=== PATIENT | male | born 1965 | race Caucasian/White ===

== ENCOUNTER 2020-02-23 08:32 | Outpatient (REF) | payer MEDICARE, MEDICAID, SELFPAY ==
[2020-02-23 11:24] LABS: Estimated Average Glucose 243 mg/dL; Hemoglobin A1c % 10.1 %
[2020-02-23 11:52] LABS: Alanine Aminotransferase 50 U/L (0-40); Albumin Level 4.5 g/dL (3.5-5.0); Alkaline Phosphatase 102 U/L (39-117); Anion Gap 16 (12-20); Aspartate Amino Transferase 25 U/L (5-37); Bilirubin Total 0.6 mg/dL (0.0-1.0); Blood Urea Nitrogen 17 mg/dL (9-16); Calcium 9.4 mg/dL (8.4-10.2); Carbon Dioxide 26 mmol/L (22-29); Chloride 103 mmol/L (96-108); Cholesterol 265 mg/dL; Estimated Glomerular Filt Rate > 60; Glucose Fasting 231 mg/dL (60-99); HDL Cholesterol 34 mg/dL; LDL Cholesterol Calculated 172 mg/dl; Potassium 4.6 mmol/l (3.3-5.1); Sodium 140 mmol/L (135-145); Total Protein 7.9 g/dL (6.5-8.0); Triglycerides 295 mg/dL
[2020-02-23 12:01] LABS: Ferritin 133 ng/mL (20-250)
[2020-02-23 12:18] LABS: Prostate Specific Antigen Scr 3.46 ng/mL (<0.05-4.0)
[2020-02-23 12:24] LABS: Vitamin B12 799 pg/mL (200-900)
[2020-02-24 22:12] LABS: Lyme Abs Screen <0.90 index
== END 2020-02-23 08:33 | disposition home or self-care (01) ==
LOC: HO.HMGCLDS 08:32
PROVIDERS: Absent Provider Physician Assistant Medical; PCP Nurse Practitioner Family; Visit Provider Nurse Practitioner Family
DX: G25.81 Restless legs syndrome (principal); T88.7XXA Unspecified adverse effect of drug or medicament, initial encounter; G62.9 Polyneuropathy, unspecified; E11.9 Type 2 diabetes mellitus without complications; Z79.899 Other long term (current) drug therapy; R74.8 Abnormal levels of other serum enzymes
CPT/HCPCS: 80053; 80061; 82607; 82728; 83036; 84153; 86618

== ENCOUNTER 2020-03-24 10:32 | Outpatient (REF) | payer MEDICARE, MEDICAID, SELFPAY ==
--- NOTE | 2020-03-24 10:38 | US_ITS ---
EXAMINATION: US ABDOMEN COMPLETE CLINICAL INFORMATION: Abnormal levels of other serum enzymes. COMPARISON: CT abdomen and pelvis with contrast dated 01/18/2010. TECHNIQUE: Real-time imaging of the abdominal viscera. Technically difficult study secondary to bowel gas. FINDINGS: PANCREAS: Normal ABDOMINAL AORTA: The proximal, mid, and distal segments are normal in caliber. INFERIOR VENA CAVA: The IVC is limited in evaluation. LIVER: The right hepatic lobe is enlarged measuring 20.2 cm in length. The liver contour is normal. No focal hepatic lesion. There is mild increased hepatic echogenicity. There is no intrahepatic biliary duct dilatation seen. GALLBLADDER: Normal. The gallbladder is physiologically distended without evidence of stones, sludge, polyps, wall thickening or pericholecystic fluid. COMMON BILE DUCT: Normal in caliber measuring 0.43 cm in diameter. RIGHT KIDNEY: Normal. No hydronephrosis. No renal calculi or focal parenchymal lesions. The kidney measures 11.0 cm in maximum dimension. LEFT KIDNEY: Normal. No hydronephrosis. No renal calculi or focal parenchymal lesions. The kidney measures 12.0 cm in maximum dimension. SPLEEN: Normal. The spleen measures 10.4 cm in maximum dimension. FREE FLUID: None US/US abdomen complete IMPRESSION: Limited exam due to gas. Mild hepatic steatosis with hepatic enlargement. Mild hepatomegaly with hepatic steatosis.
== END 2020-03-24 10:33 | disposition home or self-care (01) ==
LOC: HO.HMGCX 10:32
PROVIDERS: PCP Nurse Practitioner Family; Visit Provider Nurse Practitioner Family
DX: R74.8 Abnormal levels of other serum enzymes (principal)
CPT/HCPCS: 76700

== ENCOUNTER 2020-05-25 10:24 | Outpatient (REF) | payer MEDICARE, MEDICAID, SELFPAY ==
--- NOTE | ~2020-05-25 | XR_ITS ---
EXAMINATION: XR HIP, RIGHT CLINICAL INFORMATION: Pain COMPARISON: None TECHNIQUE: Two views of the right hip. FINDINGS: Bones and soft tissues are normal. No fracture. Alignment is anatomic. Hip joint space is maintained. XR/XR hip RT min 2V IMPRESSION: Normal right hip.
[2020-05-25 11:23] LABS: MANUAL DIFF FLAG NO
[2020-05-25 11:31] LABS: Basophils Absolute Auto 0.1 X10*3/uL (0.0-0.2); Basophils Percent Auto 0.9 % (0-2); Hematocrit 47.4 % (42-52); Hemoglobin 15.7 g/dl (14.0-18.0); Imm Gran Abs Auto 0.07 X10*3/uL (0.00-0.03); Imm Gran Pct Auto 0.6 % (0.0-0.4); Lymphocytes Absolute Auto 2.4 X10*3/uL (1.2-4.9); Lymphocytes Percent Auto 21.8 % (20-40); Mean Corpuscular HGB Conc 33.1 g/dl (31.0-36.0); Mean Corpuscular Hemoglobin 28.6 pg (27.0-33.0); Mean Corpuscular Volume 86.3 fL (80-98); Mean Platelet Volume 12.7 fL (9.4-12.4); Monocytes Absolute Auto 1.2 X10*3/uL (0.1-1.2); Monocytes Percent Auto 11.3 % (2-11); Neutrophils Absolute Auto 7.2 X10*3/uL (2.0-8.3); Neutrophils Percent Auto 65.4 % (45-73); Platelet Count 181 X10*3/uL (160-400); Red Blood Count 5.49 X10*6/uL (4.60-5.80); Red Cell Distribution Width 13.1 % (11.0-16.0)
[2020-05-25 11:41] LABS: Estimated Average Glucose 243 mg/dL; Hemoglobin A1c % 10.1 %
[2020-05-25 11:56] LABS: Alanine Aminotransferase 33 U/L (0-40); Albumin Level 4.5 g/dL (3.5-5.0); Alkaline Phosphatase 108 U/L (39-117); Anion Gap 15 (12-20); Aspartate Amino Transferase 18 U/L (5-37); Bilirubin Total 0.9 mg/dL (0.0-1.0); Blood Urea Nitrogen 18 mg/dL (9-16); Calcium 9.1 mg/dL (8.4-10.2); Carbon Dioxide 23 mmol/L (22-29); Chloride 103 mmol/L (96-108); Cholesterol 175 mg/dL; Estimated Glomerular Filt Rate > 60; Glucose Fasting 217 mg/dL (60-99); HDL Cholesterol 30 mg/dL; LDL Cholesterol Calculated 104 mg/dl; Potassium 3.8 mmol/L (3.3-5.1); Sodium 137 mmol/L (135-145); Total Protein 7.6 g/dL (6.5-8.0); Triglycerides 206 mg/dL
[2020-05-25 12:25] LABS: HBS Num1 160.52 mIU/mL (0-7.99); HBc Num1 0.04 S/CO (0.00-0.79); Hepatitis B Core Antibody Nonreactive (Nonreactive); ~HepC Num1 0.07 S/CO (0.00-0.79); ~Hepatitis B Surface Antibody REACTIVE (Nonreactive); ~Hepatitis C Antibody Nonreactive (Nonreactive)
[2020-05-25 12:57] LABS: HBsAGNum1 0.19 S/CO (0.00-0.99); Hepatitis B Surface Antigen Negative (Negative); ~Hepatitis A Antibody IgM Nonreactive (Nonreactive)
== END 2020-05-25 10:25 | disposition home or self-care (01) ==
LOC: HO.HMGCLDS 10:24
PROVIDERS: Absent Provider Dermatology; PCP Nurse Practitioner Family; Visit Provider Nurse Practitioner Family
DX: M25.551 Pain in right hip (principal); E11.9 Type 2 diabetes mellitus without complications; R74.8 Abnormal levels of other serum enzymes; Z79.899 Other long term (current) drug therapy
CPT/HCPCS: 36415; 73502; 80053; 80061; 83036; 85025; 86704; 86706; 86709; 86803; 87340

== ENCOUNTER 2020-09-05 03:29 | Emergency (ER) | payer MEDICARE, MEDICAID, SELFPAY ==
--- NOTE | ~2020-09-05 | XR_ITS ---
EXAMINATION: XR CHEST CLINICAL INFORMATION: Chest pain COMPARISON: 11/06/2016 TECHNIQUE: Frontal view of the chest was obtained. FINDINGS: Lung volumes are symmetric. No focal consolidation is seen. No evidence of pneumothorax, pleural effusion, or pulmonary edema. The cardiomediastinal contour is unremarkable. Fusion hardware is noted at the cervicothoracic junction. XR/XR chest 1V IMPRESSION: No acute cardiopulmonary findings.
[2020-09-05 03:36] VITALS: BP 170/100; PULSE 78; RESP 15; TEMP 36.7; O2SAT 95; BMI 26.8
--- NOTE | 2020-09-05 03:40 | ED.CHESTPAIN ---
HPI - Chest Pain General Chief Complaint: Chest Pain Stated Complaint: Chest Pain/Elbow Pain Time Seen by Provider: 09/05/20 03:39 Source: patient Mode of arrival: ambulatory History of Present Illness HPI narrative: This is a 55-year-old male who presents with chest pressure as well as pain to the left arm and into the neck is been ongoing for approximately 14 hours with associated fatigue and overall ?not feeling well?. Patient states that he took couple of ibuprofen this afternoon and also tried Tums, but ?the pain just would not go away?. Patient does have a history of Crohn's and denies any drug use other than marijuana. He denies any other cardiac history and does not take blood thinners. Related Data Home Medications Medication Instructions Recorded Confirmed quetiapine 25 mg tablet 25 mg PO DAILY 02/23/20 05/24/20 sertraline 100 mg tablet 100 mg PO DAILY 02/23/20 05/24/20 valacyclovir 1 gram tablet 1,000 mg PO BID 02/23/20 05/24/20 dulaglutide 0.75 mg/0.5 mL 0.75 mg SUBCUT QWEEK 05/25/20 subcutaneous pen injector Previous Rx's Medication Instructions Recorded metformin 1,000 mg tablet 1,000 mg PO BID 90 Days #180 tab 05/24/20 atorvastatin 40 mg tablet 40 mg PO BEDTIME #90 cap 08/23/20 gabapentin 100 mg capsule 100 mg PO BID 30 Days #60 cap 08/30/20 Allergies Allergy/AdvReac Type Severity Reaction Status Date / Time amoxicillin [Amoxicillin] Allergy Mild RASH, Verified 05/24/20 07:47 hives, hives Review of Systems Review of Systems: Pertinent positives and negatives as stated in HPI 10 point review of systems is otherwise negative. [facility] Past Medical History Source: nursing notes reviewed Medical History Anxiety Arthralgia Crohn's disease Depression Diabetes Hearing loss Mastoiditis Neuropathy Right hip pain Skin cancer Subdural hematoma Surgical History History of colonoscopy Family History Family History Father Cancer Mental illness in member of household Mother Cancer Sister No problems noted. Social History Social History Advance Directives: No Advance Directives Information Provided: No Physical Exam Vital Signs: Vital Signs: Last Vital Signs Temp 98.1 F 09/05/20 03:36 Pulse 78 09/05/20 03:36 Resp 15 09/05/20 03:36 BP 170/100 H 09/05/20 03:36 Pulse Ox 95 09/05/20 03:36 Body Mass Index 26.8 VITAL SIGNS: Reviewed. GENERAL: Well developed, well nourished, in no acute distress. HEAD: Normocephalic/atraumatic EYES: PERRLA, EOMI OROPHARYNX: no oral lesions noted, posterior pharynx clear LUNGS: Normal breath sounds. No adventitious sounds or accessory muscle use. SpO2<95> CARDIOVASCULAR: Regular rate and rhythm without noted murmurs, no JVD or lower extremity edema, symmetrical pulses noted at bilateral upper extremity/femoral/bilateral lower extremity. ABDOMEN: Soft, non-tender, non-distended with bowel sounds no palpable masses. SKIN: Inspection of the skin reveals no rashes but mild diaphoresis NEURO: Alert and oriented x4 Course Course Course Narrative: This is a 55-year-old male with history and clinical presentation consistent with review of EKG of STEMI. Code STEMI was activated and discussion with the on-call fertilizer loader, Dr. Borja, who agrees with assessment of STEMI and patient was provided with aspirin, Brilinta, heparin and ALS was called and patient was transported to [facility]. Review of chest x-ray negative for evidence of any widened mediastinum as interpreted by me. Patient was transported in stable condition with IV fluids running. Of note: On review of patient's chart it is documented that he has a prior history of subdural hematoma approximately 2 years ago that was considered to be ?dried up and resolving? and was found on MRI after evaluation of patient's persistent headaches. MDM - Chest Pain Lab Data Result diagrams: 09/05/20 03:45 09/05/20 03:45 Discharge Plan Discharge Clinical Impression: ST elevation (STEMI) myocardial infarction Patient Disposition: Xfer [facility] Hospital Transfer Details: STEMI, PCI Prescriptions: No Action Trulicity 0.75 mg/0.5 mL pen injector 0.75 mg subcut QWEEK RF: 0 atorvastatin 40 mg tablet 40 mg PO BEDTIME Qty: 90 RF: 0 gabapentin 100 mg capsule 100 mg PO BID 30 Days Qty: 60 RF: 1 sertraline 100 mg tablet 100 mg PO DAILY RF: 0 valacyclovir 1 gram tablet 1,000 mg PO BID RF: 0 quetiapine [Seroquel] 25 mg tablet 25 mg PO DAILY RF: 0 metformin 1,000 mg tablet 1,000 mg PO BID 90 Days Qty: 180 RF: 2
--- NOTE | 2020-09-05 03:41 | ED_ITS ---
HPI - Chest Pain General Chief Complaint: Chest Pain Stated Complaint: Chest Pain/Elbow Pain Time Seen by Provider: 09/05/20 03:39 Source: patient Mode of arrival: ambulatory History of Present Illness HPI narrative: This is a 55-year-old male with history of Crohn's who presents with pain to his left elbow that he then states spread along his chest and now states that it has been squeezing in nature with radiation into his neck all afternoon and evening for approximately 14 hours. This is been associated with feelings of fatigue and shortness of breath and he denies any prior cardiac history and is not currently on any anticoagulation. He denies any drug use other than marijuana. Related Data Home Medications Medication Instructions Recorded Confirmed quetiapine 25 mg tablet 25 mg PO DAILY 02/23/20 05/24/20 sertraline 100 mg tablet 100 mg PO DAILY 02/23/20 05/24/20 valacyclovir 1 gram tablet 1,000 mg PO BID 02/23/20 05/24/20 dulaglutide 0.75 mg/0.5 mL 0.75 mg SUBCUT QWEEK 05/25/20 subcutaneous pen injector Previous Rx's Medication Instructions Recorded metformin 1,000 mg tablet 1,000 mg PO BID 90 Days #180 tab 05/24/20 atorvastatin 40 mg tablet 40 mg PO BEDTIME #90 cap 08/23/20 gabapentin 100 mg capsule 100 mg PO BID 30 Days #60 cap 08/30/20 Allergies Allergy/AdvReac Type Severity Reaction Status Date / Time amoxicillin [Amoxicillin] Allergy Mild RASH, Verified 05/24/20 07:47 hives, hives Review of Systems Review of Systems: Pertinent positives and negatives as stated in HPI 10 point review of systems is otherwise negative. [facility] Past Medical History Source: nursing notes reviewed Medical History Anxiety Arthralgia Crohn's disease Depression Diabetes Hearing loss Mastoiditis Neuropathy Right hip pain Skin cancer Subdural hematoma Surgical History History of colonoscopy Family History Family History Father Cancer Mental illness in member of household Mother Cancer Sister No problems noted. Social History Social History Advance Directives: No Advance Directives Information Provided: No Physical Exam Vital Signs: Vital Signs: Last Vital Signs Temp 98.1 F 09/05/20 03:36 Pulse 78 09/05/20 03:36 Resp 15 09/05/20 03:36 BP 170/100 H 09/05/20 03:36 Pulse Ox 95 09/05/20 03:36 Body Mass Index 26.8 VITAL SIGNS: Reviewed. GENERAL: Well developed, well nourished, anxious distress. HEAD: Normocephalic/atraumatic EYES: PERRLA, EOMI OROPHARYNX: no oral lesions noted, posterior pharynx clear NECK: Supple, no adenopathy LUNGS: Normal breath sounds. No adventitious sounds or accessory muscle use. SpO2<95> CARDIOVASCULAR: Regular rate and rhythm without noted murmurs, symmetrical pulses in bilateral upper extremities/femoral/bilateral lower extremities ABDOMEN: Soft, non-tender, non-distended with bowel sounds. MUSCULOSKELETAL: No tenderness, deformities, or effusions noted on gross inspection. EXTREMITIES: No cyanosis, clubbing or edema. SKIN: Inspection of the skin reveals no rashes, but mild diaphoresis NEUROLOGIC: Alert and oriented x 4. Course Course Course Narrative: This is a 55-year-old male with history and clinical presentation and review of EKG consistent with inferior STEMI and code STEMI was activated. I discussed the case with Dr. Borja who agrees with the assessment of STEMI and patient will receive aspirin, Brilinta, bolus of heparin. 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 Patient is otherwise hemodynamically stable, ALS ambulance was activated, and patient [place] be [place] [facility] Discharge Plan Discharge Clinical Impression: ST elevation (STEMI) myocardial infarction Patient Disposition: Xfer Acute Care Hospital Transfer Details: STEMI, PCI Prescriptions: No Action Trulicity 0.75 mg/0.5 mL pen injector 0.75 mg subcut QWEEK RF: 0 atorvastatin 40 mg tablet 40 mg PO BEDTIME Qty: 90 RF: 0 gabapentin 100 mg capsule 100 mg PO BID 30 Days Qty: 60 RF: 1 sertraline 100 mg tablet 100 mg PO DAILY RF: 0 valacyclovir 1 gram tablet 1,000 mg PO BID RF: 0 quetiapine [Seroquel] 25 mg tablet 25 mg PO DAILY RF: 0 metformin 1,000 mg tablet 1,000 mg PO BID 90 Days Qty: 180 RF: 2
--- NOTE | 2020-09-05 03:44 | ECG_ITS ---
Test Reason : CHEST PAIN Blood Pressure : / mmHG Vent. Rate : 073 BPM Atrial Rate : 073 BPM P-R Int : 140 ms QRS Dur : 104 ms QT Int : 388 ms P-R-T Axes : 069 048 065 degrees QTc Int : 427 ms Sinus rhythm with marked sinus arrhythmia ST elevation consider inferolateral injury or acute infarct ACUTE IL / STEMI Abnormal ECG When compared with ECG of 06-NOV-2016 20:53, Criteria for Inferior infarct are no longer Present ST elevation now present in Inferior leads Nonspecific T wave abnormality no longer evident in Inferior leads Referred By: Leisa Mar Electronically Signed By:NABEEL HUGHES MD
--- NOTE | 2020-09-05 03:45 | PC.NURSE ---
@0345 DR LEDEZMA REQUEST STAT PAGE TO [employer] [phone] [employer] OFFICER [address] ABERNATHY WILL CALL US BACK @0345 CALL PLACED TO [facility] FOR A STEMI STANDBY, [employer] OFFICER TAKES PT INFO, ROOM NUMBER AND SAYS SHE WILL TONE IT OUT @ 0346 DR ABERNATHY CALLS BACK TO SPEAK WITH DR LEDEZMA, DR LEDEZMA TAKES OVER CALL RIGHT AWAY
[2020-09-05] MEDS: Aspirin 81 MG TAB.CHEW 324 MG PO (03:53)
[2020-09-05] MEDS: 0.9 % Sodium Chloride 1,000 ML 999 ML IV (03:53)
[2020-09-05] MEDS: Ticagrelor 90 MG TABLET 180 MG PO (03:54)
[2020-09-05] MEDS: Heparin Sodium,Porcine 5,000 UNIT/ML VIAL 4000 UNIT IVPUSH (03:55)
--- NOTE | 2020-09-05 03:56 | PC.NURSE ---
@7401 DR LEDEZMA STATES ACCEPTED TO [facility], [facility] NOT HERE YET
[2020-09-05 04:00] LABS: MANUAL DIFF FLAG NO
[2020-09-05 04:04] LABS: Basophils Absolute Auto 0.1 X10*3/uL (0.0-0.2); Basophils Percent Auto 0.7 % (0-2); Eosinophils Percent Auto 0.1 % (0-4); Hematocrit 47.9 % (42-52); Hemoglobin 15.8 g/dl (14.0-18.0); Imm Gran Abs Auto 0.07 X10*3/uL (0.00-0.03); Imm Gran Pct Auto 0.6 % (0.0-0.4); Lymphocytes Absolute Auto 3.2 X10*3/uL (1.2-4.9); Lymphocytes Percent Auto 27.5 % (20-40); Mean Corpuscular Hemoglobin 28.4 pg (27.0-33.0); Mean Corpuscular Volume 86.2 fL (80-98); Monocytes Absolute Auto 1.1 X10*3/uL (0.1-1.2); Monocytes Percent Auto 9.6 % (2-11); Neutrophils Absolute Auto 7.2 X10*3/uL (2.0-8.3); Neutrophils Percent Auto 61.5 % (45-73); Platelet Count 150 X10*3/uL (160-400); Red Blood Count 5.56 X10*6/uL (4.60-5.80); Red Cell Distribution Width 12.6 % (11.0-16.0); White Blood Count 11.8 X10*3/uL (4.8-10.8)
--- NOTE | 2020-09-05 04:05 | PC.NURSE ---
[facility] HERE NOW FOR TRANSPORT @ THIS TIME, DR LEDEZMA FINISHING PAPERWORK @ THIS TIME
[2020-09-05 04:10] VITALS: BP 176/100; PULSE 84; RESP 18; TEMP 36.7; O2SAT 97
[2020-09-05 04:11] LABS: INTERNATIONAL NORM RATIO 1.1 (0.9-1.1); Prothrombin Time 12.6 SEC (10.8-13.0)
--- NOTE | 2020-09-05 04:12 | PC.NURSE ---
[facility] HAS TRANSFER PAPERWORK IN HAND, HEADS TO ROOM TO MOVE PT TO STRETCHER @ THIS TIME
--- NOTE | 2020-09-05 04:13 | PC.NURSE ---
call placed to [facility] lab
--- NOTE | 2020-09-05 04:13 | PC.NURSE ---
pt loaded on [facility] stretcher now
[2020-09-05 04:14] VITALS: PULSE 84
--- NOTE | 2020-09-05 04:20 | PC.NURSE ---
[facility] LEAVES WITH THIS PT @ THIS TIME TO [facility]EDGE FUND MANAGER
[2020-09-05 04:22] LABS: COVID-19 Test Negative (Negative)
[2020-09-05 04:29] LABS: Alanine Aminotransferase 25 U/L (0-40); Albumin Level 4.2 g/dL (3.5-5.0); Alkaline Phosphatase 106 U/L (39-117); Anion Gap 15 (12-20); Aspartate Amino Transferase 17 U/L (5-37); Bilirubin Direct 0.3 mg/dL (0.0-0.5); Bilirubin Total 0.9 mg/dL (0.0-1.0); Blood Urea Nitrogen 13 mg/dL (9-16); Calcium 9.1 mg/dL (8.4-10.2); Carbon Dioxide 25 mmol/L (22-29); Chloride 104 mmol/L (96-108); Creatinine Clr Calc Pharmacy 91.7; Estimated Glomerular Filt Rate > 60; Glucose Random 282 mg/dL (60-115); Lipase 308 U/L (8-78); Potassium 3.8 mmol/L (3.3-5.1); Sodium 140 mmol/L (135-145); Total Protein 7.2 g/dL (6.5-8.0)
[2020-09-05 04:31] LABS: B Type Natriuretic Peptide 43 pg/mL (<100)
--- NOTE | 2020-09-05 04:36 | PC.NURSE ---
COMPLETED LAB WORK RESULTS AND MD NOTES FAXED TO CERTIFIED REGISTERED NURSE ANESTHETIST [phone] @ THIS TIME
== END 2020-09-05 04:20 | disposition short-term general hospital (02) ==
PROVIDERS: Emergency Provider Student in an Organized Health Care Education/Training Program; PCP Nurse Practitioner Family
DX: I21.3 ST elevation (STEMI) myocardial infarction of unspecified site (principal); R07.9 Chest pain, unspecified; R06.02 Shortness of breath; Z20.822 Contact with and (suspected) exposure to COVID-19; Z79.899 Other long term (current) drug therapy
CPT/HCPCS: 36415; 71045; 80053; 80076; 82248; 83690; 83880; 84484; 85025; 85610; 85730; 87635; 93005; 96365; 96375; 99285

== ENCOUNTER 2020-10-12 12:03 | Outpatient (REF) | payer MEDICARE, MEDICAID, SELFPAY ==
[2020-10-12 14:23] LABS: Cholesterol 161 mg/dL; HDL Cholesterol 36 mg/dL; LDL Cholesterol Calculated 91 mg/dl; Triglycerides 170 mg/dL
[2020-10-12 14:24] LABS: Microalbum/Creatinine Ratio Ur 7.4 ug/mg cr
== END 2020-10-12 12:04 | disposition home or self-care (01) ==
LOC: HO.HMGCLDS 12:03
PROVIDERS: PCP Nurse Practitioner Family; Visit Provider Nurse Practitioner Family
DX: E11.9 Type 2 diabetes mellitus without complications (principal)
CPT/HCPCS: 36415; 80061; 82043

== ENCOUNTER 2020-11-24 10:48 | Outpatient (REF) | payer MEDICARE, MEDICAID, SELFPAY ==
[2020-11-24 13:53] LABS: MANUAL DIFF FLAG NO
[2020-11-24 14:03] LABS: Basophils Absolute Auto 0.1 X10*3/uL (0.0-0.2); Basophils Percent Auto 0.8 % (0-2); Hemoglobin 14.8 g/dl (14.0-18.0); Imm Gran Abs Auto 0.07 X10*3/uL (0.00-0.03); Imm Gran Pct Auto 0.7 % (0.0-0.4); Lymphocytes Absolute Auto 2.8 X10*3/uL (1.2-4.9); Mean Corpuscular HGB Conc 32.2 g/dl (31.0-36.0); Mean Corpuscular Hemoglobin 27.9 pg (27.0-33.0); Mean Corpuscular Volume 86.6 fL (80-98); Monocytes Percent Auto 9.6 % (2-11); Neutrophils Absolute Auto 6.5 X10*3/uL (2.0-8.3); Neutrophils Percent Auto 61.9 % (45-73); Platelet Count 219 X10*3/uL (160-400); Red Blood Count 5.31 X10*6/uL (4.60-5.80); Red Cell Distribution Width 13.3 % (11.0-16.0); White Blood Count 10.5 X10*3/uL (4.8-10.8)
[2020-11-24 14:10] LABS: Glucose Urine UA NEG (NEG); Leukocyte Esterase Urine NEG (NEG); Nitrite Urine NEG (NEG); Specific Gravity - Urine >= 1.030 (1.005-1.025); Urine Blood NEG (NEG); Urine Ketones NEG (NEG); Urine Protein NEG (NEG-TRACE)
[2020-11-24 14:14] LABS: Appearance Urine CLOUDY; Color Urine YELLOW
[2020-11-24 14:27] LABS: Alanine Aminotransferase 26 U/L (0-40); Albumin Level 4.5 g/dL (3.5-5.0); Alkaline Phosphatase 91 U/L (39-117); Anion Gap 14 (12-20); Aspartate Amino Transferase 16 U/L (5-37); Bilirubin Total 1.2 mg/dL (0.0-1.0); Blood Urea Nitrogen 19 mg/dL (9-16); Calcium 9.5 mg/dL (8.4-10.2); Carbon Dioxide 25 mmol/L (22-29); Chloride 106 mmol/L (96-108); Estimated Glomerular Filt Rate > 60; Glucose Fasting 179 mg/dL (60-99); Potassium 4.4 mmol/L (3.3-5.1); Sodium 141 mmol/L (135-145); Total Protein 7.7 g/dL (6.5-8.0)
[2020-11-24 14:47] LABS: TSH reflex Free T4 0.74 uIU/mL (0.32-4.0)
== END 2020-11-24 10:49 | disposition home or self-care (01) ==
LOC: HO.HMGCLDS 10:48
PROVIDERS: PCP Nurse Practitioner Family; Visit Provider Dermatology
DX: E11.9 Type 2 diabetes mellitus without complications (principal); T88.7XXA Unspecified adverse effect of drug or medicament, initial encounter; Z79.899 Other long term (current) drug therapy
CPT/HCPCS: 36415; 80053; 81003; 84443; 85025

== ENCOUNTER 2020-12-21 07:51 | Outpatient (REF) | payer MEDICARE, MEDICAID, SELFPAY ==
[2020-12-21 11:59] LABS: Estimated Average Glucose 206 mg/dL; Hemoglobin A1c % 8.8 %
[2020-12-21 12:01] LABS: Alanine Aminotransferase 28 U/L (0-40); Albumin Level 4.4 g/dL (3.5-5.0); Alkaline Phosphatase 85 U/L (39-117); Anion Gap 15 (12-20); Aspartate Amino Transferase 18 U/L (5-37); Bilirubin Total 0.7 mg/dL (0.0-1.0); Blood Urea Nitrogen 14 mg/dL (9-16); Calcium 9.2 mg/dL (8.4-10.2); Carbon Dioxide 22 mmol/L (22-29); Chloride 106 mmol/L (96-108); Cholesterol 155 mg/dL; Estimated Glomerular Filt Rate > 60; Glucose Random 174 mg/dL (60-115); HDL Cholesterol 32 mg/dL; LDL Cholesterol Calculated 76 mg/dl; Potassium 4.5 mmol/L (3.3-5.1); Sodium 138 mmol/L (135-145); Total Protein 7.4 g/dL (6.5-8.0); Triglycerides 237 mg/dL
[2020-12-21 12:04] LABS: Prostate Specific Antigen Scr 3.39 ng/mL (<0.05-4.0)
== END 2020-12-21 07:52 | disposition home or self-care (01) ==
LOC: HO.HMGCLDS 07:51
PROVIDERS: PCP Nurse Practitioner Family; Visit Provider Nurse Practitioner Family
DX: Z12.5 Encounter for screening for malignant neoplasm of prostate (principal); R97.20 Elevated prostate specific antigen [PSA]; E11.9 Type 2 diabetes mellitus without complications
CPT/HCPCS: 36415; 80053; 80061; 83036; 84153

== ENCOUNTER 2021-06-21 10:31 | Outpatient (REF) | payer MEDICARE, MEDICAID, SELFPAY ==
[2021-06-21 12:00] LABS: Estimated Average Glucose 226 mg/dL; Hemoglobin A1c % 9.5 %
[2021-06-21 12:19] LABS: Alanine Aminotransferase 36 U/L (0-40); Albumin Level 4.4 g/dL (3.5-5.0); Alkaline Phosphatase 91 U/L (39-117); Anion Gap 15 (12-20); Aspartate Amino Transferase 19 U/L (5-37); Bilirubin Total 1.1 mg/dL (0.0-1.0); Blood Urea Nitrogen 16 mg/dL (9-16); Carbon Dioxide 27 mmol/L (22-29); Chloride 101 mmol/L (96-108); Cholesterol 175 mg/dL; Estimated Glomerular Filt Rate > 60; Glucose Fasting 266 mg/dL (60-99); HDL Cholesterol 34 mg/dL; LDL Cholesterol Calculated 86 mg/dl; Potassium 3.9 mmol/L (3.3-5.1); Sodium 139 mmol/L (135-145); Total Protein 7.4 g/dL (6.5-8.0); Triglycerides 277 mg/dL
[2021-06-21 12:29] LABS: TSH reflex Free T4 0.55 uIU/mL (0.32-4.0)
[2021-06-21 13:27] LABS: Appearance Urine CLOUDY; Color Urine YELLOW; Glucose Urine UA 500 MG/DL (NEG); Leukocyte Esterase Urine NEG (NEG); Nitrite Urine NEG (NEG); PH 5.5 (5.0-8.0); Specific Gravity - Urine >= 1.030 (1.005-1.025); Urine Blood NEG (NEG); Urine Ketones NEG (NEG); Urine Protein TRACE MG/DL (NEG-TRACE)
== END 2021-06-21 10:32 | disposition home or self-care (01) ==
LOC: HO.HMGCLDS 10:31
PROVIDERS: PCP Nurse Practitioner Family; Visit Provider Nurse Practitioner Family
DX: E11.9 Type 2 diabetes mellitus without complications (principal)
CPT/HCPCS: 36415; 80053; 80061; 81003; 83036; 84443

== ENCOUNTER 2021-07-13 10:26 | Outpatient (REF) | payer MEDICARE, MEDICAID, SELFPAY ==
--- NOTE | ~2021-07-13 | CT_ITS ---
EXAMINATION: CT HIP WITHOUT CONTRAST, RIGHT CLINICAL INFORMATION: Right hip pain. COMPARISON: Right hip pain dated 05/25/2020. TECHNIQUE: Contiguous axial CT images of the right hip were obtained without contrast. Multiplanar reformats were provided and reviewed. This CT examination was performed using dose optimization techniques as appropriate, variously including the following: *Automated exposure control *Adjustment of mA and/or kV according to patient size (this includes techniques or standardized protocols for targeted exams where dose is matched to indication/reason for exam; i.e. extremities or head) *Use of iterative reconstruction technique DLP: 290 mGy-cm FINDINGS: No acute fracture or dislocation. Mild right hip joint space narrowing with small acetabular marginal osteophytes as well as minimal peripheral acetabular subchondral cystic change. No concerning lytic or blastic osseous lesion. Minimal enthesopathic spurring at the right ischial tuberosity. The visualized muscles and tendons are otherwise intact, however, evaluation is limited on CT examination. No abnormal soft tissue mass or fluid collection. CT/CT hip RT wo con IMPRESSION: Mild right hip osteoarthritis. Mild spurring at the right ischial tuberosity, which could indicate chronic hamstring tendinopathy.
== END 2021-07-13 10:27 | disposition home or self-care (01) ==
LOC: HO.CT 10:26
PROVIDERS: PCP Nurse Practitioner Family; Visit Provider Nurse Practitioner Family
DX: M25.551 Pain in right hip (principal)
CPT/HCPCS: 73700

== ENCOUNTER 2021-08-22 08:00 | Outpatient (RCR) | payer MEDICARE, MEDICAID, SELFPAY ==
--- NOTE | 2021-08-01 15:23 | MHC.PT.EP ---
[facility] [place] Office [place] [facility] [place] [facility] [address] [phone] F: [phone] F: [phone] F: [phone] F: [phone] Physical Therapy Plan of Care Date of Evaluation: Date of Surgery: Diagnosis: Pain of R hip Assessment: Pt is a 56 y/o male referred to PT for eval and treat of pain of R hip resulting in decreased tolerance and ability for walking moderate distances, negotiating stairs, standing for duration, as well as performing squatting activities secondary to decreased R > L hip strength, increased L > R hamstring tissue tension, Pelvic asymmetry, gait abnormality, and pain. Pt is deemed an appropriate candidate to receive skilled PT in order to address his physical limitations to improve his functional ability. Frequency and Duration: The patient will be seen 2 x / 4 wks. Short Term Goals: Initiate HEP. Improve baseline pain to < 4/10 with activity; initial: 6/10. Ammonium Nitrate Crystallizer Goals: I with HEP. Pt will be able to walk 2 blocks with at most a little bit of difficulty; initial: unable or with extreme difficulty. Pt will be able to negotiate 1 fl of stairs with at most a little bit of difficulty; initial: unable or with extreme difficulty. improve R hip abd MMT by at least 1/2 MMT grade; initial: 4/5. Treatment Plan: Modalities to reduce pain, spasms and effusion. Manual therapy to restore motion and function. Therapeutic exercise to improve strength and flexibility. Neuromuscular re-education for posture and balance. Therapeutic activities to return to functional activities of daily living. Electronically signed by: Shahzad Camargo PT. Please sign and return to therapist. Thank you for your referral.
--- NOTE | 2021-09-05 10:41 | MHC.PT.DC ---
[facility] [place] Office [place] Office [place] Office [address] [phone] F: [phone] F: [phone] F: [phone] F: [phone] Physical Therapy Discharge Report Diagnosis: Pain of R hip Date of Surgery: Date of Evaluation: 07/28/21 Date of Discharge: 09/05/21 Treatments to Date: 5 Cancellations to Date: 4 No Shows to Date: 2 Discharge Status: Visit Non-compliance Discharge Summary: Pt sees . Pt R L.E sl shorter. Hip fatigued after exs, but felt looser. Pt CT scan reviewed with pt Electronically signed by: Shahzad Camargo PT. Please sign and return to therapist. Thank you for your referral.
== END 2021-09-05 10:41 | disposition home or self-care (01) ==
LOC: HO.PTCHIC 08:00
PROVIDERS: PCP Nurse Practitioner Family; Visit Provider Nurse Practitioner Family
DX: M25.551 Pain in right hip (principal)
CPT/HCPCS: 97110; 97150; 97162

== ENCOUNTER 2021-08-22 09:13 | Outpatient (REF) | payer MEDICARE, MEDICAID, SELFPAY ==
[2021-08-22 11:25] LABS: MANUAL DIFF FLAG NO
[2021-08-22 11:30] LABS: Basophils Absolute Auto 0.1 X10*3/uL (0.0-0.2); Basophils Percent Auto 0.8 % (0-2); Eosinophils Percent Auto 0.3 % (0-4); Hemoglobin 12.7 g/dl (14.0-18.0); Imm Gran Abs Auto 0.09 X10*3/uL (0.00-0.03); Imm Gran Pct Auto 0.8 % (0.0-0.4); Lymphocytes Absolute Auto 2.7 X10*3/uL (1.2-4.9); Lymphocytes Percent Auto 23.4 % (20-40); Mean Corpuscular Hemoglobin 28.6 pg (27.0-33.0); Mean Corpuscular Volume 92.3 fL (80.0-98.0); Mean Platelet Volume 12.4 fL (9.4-12.4); Monocytes Absolute Auto 1.1 X10*3/uL (0.1-1.2); Monocytes Percent Auto 9.3 % (2-11); Neutrophils Absolute Auto 7.6 x10*3/uL (2.0-8.3); Neutrophils Percent Auto 65.4 % (45-73); Platelet Count 222 X10*3/uL (160-400); Red Blood Count 4.44 X10*6/uL (4.60-5.80); Red Cell Distribution Width 15.5 % (11.0-16.0); White Blood Count 11.6 X10*3/uL (4.8-10.8)
[2021-08-22 11:53] LABS: Alanine Aminotransferase 49 U/L (0-40); Albumin Level 4.5 g/dL (3.5-5.0); Alkaline Phosphatase 84 U/L (39-117); Anion Gap 14 (12-20); Aspartate Amino Transferase 25 U/L (5-37); Bilirubin Total 1.4 mg/dL (0.0-1.0); Blood Urea Nitrogen 16 mg/dL (9-16); Calcium 9.5 mg/dL (8.4-10.2); Carbon Dioxide 26 mmol/L (22-29); Chloride 105 mmol/L (96-108); Estimated Glomerular Filt Rate > 60; Glucose Random 250 mg/dL (60-115); Potassium 4.3 mmol/L (3.3-5.1); Sodium 141 mmol/L (135-145)
== END 2021-08-22 09:14 | disposition home or self-care (01) ==
LOC: HO.HMGCLDS 09:13
PROVIDERS: Absent Provider Urology; PCP Nurse Practitioner Family; Visit Provider Dermatology
DX: L30.8 Other specified dermatitis (principal); Z79.899 Other long term (current) drug therapy; R97.20 Elevated prostate specific antigen [PSA]
CPT/HCPCS: 36415; 80053; 85025

== ENCOUNTER 2021-09-18 07:28 | Outpatient (REF) | payer MEDICARE, MEDICAID, SELFPAY ==
--- NOTE | ~2021-09-18 | XR_ITS ---
EXAMINATION: XR PELVIS CLINICAL INFORMATION: Hip pain COMPARISON: Radiographs right hip 05/25/2020, CT right hip 07/13/2021. TECHNIQUE: AP view of the pelvis. FINDINGS: No fracture or dislocation. No diastases SI joints or pubis. No bony destructive process. Normal bony mineralization. Probable mild degenerative changes SI joints. Whiskering at the inferior medial Rashmi similar to prior exam. XR/XR pelvis 1-2V IMPRESSION: -No fracture, dislocation, destructive process. -Mild degenerative changes SI joints.
== END 2021-09-18 07:29 | disposition home or self-care (01) ==
LOC: HO.HOSX 07:28
PROVIDERS: Visit Provider Physician Assistant
DX: M54.16 Radiculopathy, lumbar region (principal)
CPT/HCPCS: 72170; 99202

== ENCOUNTER → 2021-10-05 09:58 | Outpatient (BNVA) | payer MEDICARE, MEDICAID, SELFPAY | PROVIDERS: PCP Nurse Practitioner Family; Visit Provider Anesthesiology | DX: G89.4 Chronic pain syndrome (principal); M46.1 Sacroiliitis, not elsewhere classified; M47.812 Spondylosis without myelopathy or radiculopathy, cervical region; G89.29 Other chronic pain; M53.3 Sacrococcygeal disorders, not elsewhere classified | CPT/HCPCS: 99202 ==

== ENCOUNTER → 2021-12-01 08:45 | Day surgery (SDC) | payer MEDICARE, MEDICAID, SELFPAY ==
[2021-11-28 11:38] VITALS: BMI 26.3
--- NOTE | 2021-11-30 09:13 | HO.ANESPROP2 ---
HPI - Anesthesia Eval Consult details Narrative: Pt cx'd DOS for low sat on O2. Pt to f/u with pulm. 56yo M for Right Diagnostic Sacroiliac Joint Innervation Injection Cardiac cleared PMFSH Active Problems Active Problems: All Active Problems (Updated 10/05/21 @ 11:14 by Ministerio Leon MD) Screening PSA (prostate specific antigen) (Acute) Restless leg syndrome (Acute) Elevated PSA (Acute) Elevated liver enzymes (Acute) Neuropathy (Acute) Screening PSA (prostate specific antigen) (Acute) Encounter for annual wellness visit (AWV) in Medicare patient (Acute) Ingrown toenail (Acute) Lumbar radiculopathy (Acute) Sacroiliitis (Acute) Chronic pain syndrome (Acute) Spondylosis of cervical spine (Acute) Chronic right sacroiliac joint pain (Acute) Right hip pain (Acute) Neuropathy (Acute) Diabetes (Acute) Past Medical History Medical History (Updated 12/12/21 @ 14:19 by Carmine Spain MD) Anxiety Arthralgia Crohn's disease Depression Diabetes Hearing loss Mastoiditis Neuropathy Right hip pain Skin cancer Subdural hematoma Family History Family History Father Cancer Mental illness in member of household Mother Cancer Sister No problems noted. 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 Meds Allergies Allergy/AdvReac Type Severity Reaction Status Date / Time amoxicillin [Amoxicillin] Allergy Mild RASH, Verified 12/12/21 13:59 hives, hives morphine Allergy rash Verified 12/12/21 13:59 Home Medications Medication Instructions Recorded Confirmed Last Taken Type sertraline 100 mg tablet 100 mg PO DAILY 02/23/20 12/05/21 11/30/21 History aspirin 81 mg chewable tablet 81 mg PO DAILY 09/07/20 12/05/21 11/28/21 History clonazepam 0.5 mg tablet 0.5 mg PO BID 09/07/20 12/05/21 11/29/21 History dapsone 25 mg tablet 25 mg PO DAILY 09/07/20 12/05/21 11/30/21 History hydroxyzine HCl 25 mg tablet 25 mg PO TID PRN Rash 09/07/20 12/05/21 11/30/21 History metoprolol succinate 50 mg 50 mg PO DAILY 09/07/20 12/05/21 11/30/21 History tablet,extended release 24 hr mirtazapine 30 mg tablet 30 mg PO BEDTIME 09/07/20 12/05/21 11/30/21 History prazosin 5 mg capsule 5 mg PO BEDTIME 09/07/20 12/05/21 11/30/21 History quetiapine 25 mg tablet (Seroquel) 50 mg PO DAILY 09/07/20 12/05/21 11/30/21 History clopidogrel 75 mg tablet 1 mg PO DAILY 09/28/20 12/05/21 11/15/21 History Exam Exam Date and Time: November 30, 202113 Height,Weight and Vital Signs: Height 6 ft Weight 87.997 kg Pertinent Lab Results Pertinent Lab Results: Laboratory Tests 08/22/21 08/22/21 09:22 09:22 WBC 11.6 H Hgb 12.7 L Hct 41.0 L Plt Count 222 Sodium 141 Potassium 4.3 Chloride 105 Carbon Dioxide 26 BUN 16 Creatinine 0.94 Assessment and Plan Assessment Anesthesia Assessment: Chart Reviewed
--- NOTE | 2021-11-30 15:40 | MHC.SHP ---
Pre-Procedural Eval Section A Date of Service: 11/30/21 The patient is an INPATIENT: No Changes since office visit: Yes Patient answered all questions The History & Physical has been completed within 30 days and I have reviewed it.: No Section B Chief Complaint: Sacroiliitis, Details of Present Illness: as above Relevant Family History (Specify if Yes): No Relevant Social History: None Present Medications: see Short Stay Collaborative assessment Medical History: No relevant PMH History of Previous Operations: No relevant previous surgery Allergies: Allergies Allergy/AdvReac Type Severity Reaction Status Date / Time amoxicillin [Amoxicillin] Allergy Mild RASH, Verified 10/05/21 10:29 hives, hives morphine Allergy rash Verified 10/05/21 10:29 Review of Systems Sugical H&P ROS: Negative: Constitution, Cardiovascular, Respiratory, Neurological, Psychiatric, Hem-Onc, Allergic/Immunologic, Gastrointestinal, Genitourinary, Integumentary, Endocrine and Eyes/Ears/Nose/Throat and Yes, Specify: Musculoskeletal (sacroiliitis) Exam Surgical H&P Exam: Normal: HEENT, Normal: Heart, Normal: Lungs, Normal: Extremities, Normal: Abdomen, Normal: Skin and Normal: Neurological Plan Diagnosis/Plan: Unchanged I have reviewed the history and physical and performed a pertinent physical examination on my patient. No changes have occurred unless specified.
--- NOTE | 2021-12-01 | ECG_ITS ---
Test Reason : preop Blood Pressure : / mmHG Vent. Rate : 102 BPM Atrial Rate : 102 BPM P-R Int : 146 ms QRS Dur : 098 ms QT Int : 350 ms P-R-T Axes : 065 005 031 degrees QTc Int : 456 ms Sinus tachycardia Low voltage QRS Cannot rule out Inferior infarct , age undetermined Abnormal ECG When compared with ECG of 05-SEP-2020 03:37, ST no longer elevated in Inferior leads Heart rate has increased Referred By: Pennie Mason Electronically Signed By:LUIS MIGUEL CHRISTIANSON
[2021-12-01 08:53] VITALS: BP 132/96; PULSE 102; RESP 18; TEMP 36.3; O2SAT 90
[2021-12-01 09:02] LABS: Glucose, Whole Blood 188 mg/dL (60-115)
--- NOTE | 2021-12-01 09:47 | PC.NURSE ---
patient put on 2liters n/c 02sat 89-90 with oxygen
--- NOTE | 2021-12-01 10:16 | PC.NURSE ---
dr hubbard at bedside pt resp easy and reg 02 sat with 2liters oxygen 89-90 pt denies sob denies c/p anesthesia made aware
--- NOTE | 2021-12-01 10:27 | PC.NURSE ---
pt awaiting to be evaluated by dr radha loyd
--- NOTE | 2021-12-01 10:40 | PC.NURSE ---
dr garcia at bedside surgery being cancellled pt aware
[2021-12-01 10:41] VITALS: BP 133/87; PULSE 102; RESP 18; TEMP 36.6; O2SAT 89
--- NOTE | 2021-12-01 10:44 | PC.NURSE ---
pt denies c/p denoes sob resp easy and reg pwd sts has consult with pulmonary in sept dr garcia aware
--- NOTE | 2021-12-01 10:53 | PC.NURSE ---
dr robbins and dr garcia at beside speaking to pt aware of careplan denies pain watching discharge from anesthesia
--- NOTE | 2021-12-01 10:58 | PC.NURSE ---
pt getting dressed sts does not want to go to ED HAD F/U APPT ANESTHESIA AWARE
--- NOTE | 2021-12-01 11:14 | PC.NURSE ---
PT DISCHARGE HOME AFTER SURGERY CANCELLED DENIES SOB PWD DENIES C/P F/U WITH PULMONARY WILL RETURN TO ED IF ANY SOB C/P VERBLAIZED UNDERSTANDING
== END ==
PROVIDERS: PCP Nurse Practitioner Family; Visit Provider Anesthesiology
DX: M46.1 Sacroiliitis, not elsewhere classified (principal); Z53.09 Procedure and treatment not carried out because of other contraindication; R09.02 Hypoxemia
CPT/HCPCS: 82947; 93005; J2250

== ENCOUNTER 2021-12-05 11:36 | Outpatient (REF) | payer MEDICARE, MEDICAID, SELFPAY ==
--- NOTE | 2021-12-05 | PFT_ITS ---
FLOWS: FEV1 90% of predicted at 3.66 L. FVC 90% of predicted at 4.75 L. FEV1 to FVC ratio of 0.77. No bronchodilator response except in small to medium airways. LUNG VOLUMES: Total lung capacity 93% of predicted at 6.91 L. Residual volume 110% of predicted at 2.50 L. Slow vital capacity 86% of predicted at 4.41 L. Expiratory reserve volume 13% of predicted at 0.21 L. Diffusion capacity is mildly decreased. IMPRESSION: No obstructive or restrictive ventilatory defect. No bronchodilator response except in small to medium airways. Isolated defect in diffusion capacity suggests underlying pulmonary parenchymal disease. Clinical correlation is advised. MD JANELL Méndez/MODL / [id number]
== END 2021-12-05 11:37 | disposition home or self-care (01) ==
LOC: HO.RESP 11:36
PROVIDERS: PCP Nurse Practitioner Family; Visit Provider Internal Medicine Pulmonary Disease
DX: Z01.811 Encounter for preprocedural respiratory examination (principal); J84.9 Interstitial pulmonary disease, unspecified; R06.00 Dyspnea, unspecified; I25.10 Atherosclerotic heart disease of native coronary artery without angina pectoris; Z95.5 Presence of coronary angioplasty implant and graft; Z99.81 Dependence on supplemental oxygen
CPT/HCPCS: 94060; 94618; 94727; 94729; 99202

== ENCOUNTER 2021-12-12 07:40 | Outpatient (REF) | payer MEDICARE, MEDICAID, SELFPAY ==
--- NOTE | ~2021-12-12 | CT_ITS ---
EXAMINATION: CT CHEST WITHOUT CONTRAST CLINICAL INFORMATION: Interstitial pulmonary disease. COMPARISON: Chest x-ray 09/05/2020. TECHNIQUE: Multidetector volumetric CT imaging of the chest was done. Axial MIP volume rendering provided. Sagittal and coronal reformatted images were obtained. This CT examination was performed using dose optimization techniques as appropriate, variously including the following: *Automated exposure control *Adjustment of mA and/or kV according to patient size (this includes techniques or standardized protocols for targeted exams where dose is matched to indication/reason for exam; i.e. extremities or head) *Use of iterative reconstruction technique DLP: 155 mGy-cm FINDINGS: DIRECTOR PROCESS ENGINEERING: Unremarkable chest exam. LUNGS: The lungs are well expanded and clear of acute pneumonic process. There are no pulmonary nodules, mass or consolidation. There is 5 mm focal nodular thickening in the right major fissure axial image 29/2. A 3 mm nodule is seen in the left major fissure on axial image 27/12. These are most likely intrafissural lymph nodes. No other pulmonary nodules or interstitial thickening noted. There is a punctate 1 mm calcified granuloma in the lingula. MEDIASTINUM: Thyroid lobes are symmetric and normal. The central trachea and the bronchi are widely patent. Heart size and pulmonary vascularity are normal. No abnormal-sized mediastinal or hilar lymph nodes are seen. There are trace coronary artery calcifications. No pericardial effusion is seen. PLEURA: There is no pleural effusion, thickening or calcification. AXILLAE: There are small bilateral axillary lymph nodes. The largest left axillary lymph node measures 1.8 x 1.1 cm. UPPER ABDOMEN: The liver is diffusely attenuated without any focal lesions. No intrahepatic ductal dilatation is seen. The visualized spleen, pancreas and bilateral adrenal glands are unremarkable. OSSEOUS STRUCTURES: No aggressive lytic or sclerotic process is seen. Mild spondylosis seen throughout the dorsal spine. There is lower cervical ventral fusion. CT/CT chest wo IV con IMPRESSION: No interstitial lung disease or worrisome pulmonary nodules. There are intrafissural nodules, likely lymph nodes. No acute consolidation or abnormal mediastinal adenopathy. Diffuse fatty infiltration of the liver. Fleischner guidelines were followed.
== END 2021-12-12 07:41 | disposition home or self-care (01) ==
LOC: HO.CT 07:40
PROVIDERS: Visit Provider Internal Medicine Pulmonary Disease
DX: J84.9 Interstitial pulmonary disease, unspecified (principal); R06.09 Other forms of dyspnea
CPT/HCPCS: 71250; 99212

== ENCOUNTER 2022-01-19 09:44 | Day surgery (SDC) | payer MEDICARE, MEDICAID, SELFPAY ==
[2022-01-15 15:08] VITALS: BMI 26.3
--- NOTE | ~2022-01-19 | FL_ITS ---
EXAMINATION: XR FLUOROSCOPY WITH IMAGES CLINICAL INFORMATION: Diagnostic right SI joint injection. Pain. COMPARISON: Pelvic radiograph 09/18/2021. TECHNIQUE: Fluoroscopy performed by Dr. Ministerio Leon. Fluoroscopy time: 0.1 minutes. Cumulative Dose: 2.56 mGy. DAP: 0.699 Gycm2. Images: 1. FINDINGS: Spinal needle overlies mid to lower right SI joint. There is contrast in the periarticular soft tissues with probable early intra-articular contrast. No vasculature communication appreciated. FL/FL guidance in OR IMPRESSION: Fluoroscopy for pain management procedure.
[2022-01-19 09:56] VITALS: BMI 26.6
[2022-01-19 10:07] VITALS: BP 126/94; PULSE 87; RESP 16; TEMP 36.4; O2SAT 88
--- NOTE | 2022-01-19 10:08 | P.CONAN_ITS ---
[facility] Active Problems Active Problems: All Active Problems (Updated 01/15/22 @ 14:44 by Rhianna Shetty RN) Screening PSA (prostate specific antigen) (Acute) Restless leg syndrome (Acute) Elevated PSA (Acute) Elevated liver enzymes (Acute) Neuropathy (Acute) Screening PSA (prostate specific antigen) (Acute) Encounter for annual wellness visit (AWV) in Medicare patient (Acute) Ingrown toenail (Acute) Lumbar radiculopathy (Acute) Sacroiliitis (Acute) Chronic pain syndrome (Acute) Spondylosis of cervical spine (Acute) Chronic right sacroiliac joint pain (Acute) Supplemental oxygen dependent (Acute) Encounter for preoperative pulmonary examination (Acute) Dyspnea on exertion (Acute) Physical exam (Acute) Right hip pain (Acute) Neuropathy (Acute) Diabetes (Acute) Past Medical History Medical History Anxiety Arthralgia Crohn's disease Depression Diabetes Hearing loss Mastoiditis Myocardial infarction Neuropathy On beta clifford at home Right hip pain Skin cancer Subdural hematoma Supplemental oxygen dependent Family History Family History Father Cancer Mental illness in member of household Mother Cancer Sister No problems noted. 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 Cognitive needs: No Hearing needs: No Vision needs: No Meds Allergies Allergy/AdvReac Type Severity Reaction Status Date / Time amoxicillin [Amoxicillin] Allergy Mild RASH, Verified 01/15/22 14:31 hives, hives morphine Allergy rash Verified 01/15/22 14:31 Active Medications: Current Medications Lactated Ringer's (Lr) 1,000 mls @ 100 mls/hr IVCONT .Q10H ILDA Home Medications Medication Instructions Recorded Confirmed Last Taken Type sertraline 100 mg tablet 100 mg PO DAILY 02/23/20 01/15/22 11/30/21 History aspirin 81 mg chewable tablet 81 mg PO DAILY 09/07/20 01/15/22 11/28/21 History clonazepam 0.5 mg tablet 0.5 mg PO BID 09/07/20 01/15/22 11/29/21 History dapsone 25 mg tablet 25 mg PO DAILY 09/07/20 01/15/22 11/30/21 History hydroxyzine HCl 25 mg tablet 25 mg PO TID PRN Rash 09/07/20 01/15/22 11/30/21 History metoprolol succinate 50 mg 50 mg PO DAILY 09/07/20 01/15/22 11/30/21 History tablet,extended release 24 hr mirtazapine 30 mg tablet 30 mg PO BEDTIME 09/07/20 01/15/22 11/30/21 History prazosin 5 mg capsule 5 mg PO BEDTIME 09/07/20 01/15/22 11/30/21 History quetiapine 25 mg tablet (Seroquel) 50 mg PO DAILY 09/07/20 01/15/22 11/30/21 History zolpidem 5 mg tablet 5 mg PO BEDTIME 12/18/21 01/15/22 Unknown History Exam Exam Date and Time: January 19, 2022 1008 Height,Weight and Vital Signs: Height 6 ft Weight 88.904 kg
[2022-01-19] MEDS: Lactated Ringers 1,000 ML 100 ML IVCONT (10:34)
[2022-01-19 10:41] LABS: Glucose, Whole Blood 225 mg/dL (60-115)
--- NOTE | 2022-01-19 12:02 | HO.ANESPROP2 ---
[facility] Active Problems Active Problems: All Active Problems (Updated 01/15/22 @ 14:44 by Rhianna Shetty RN) Screening PSA (prostate specific antigen) (Acute) Restless leg syndrome (Acute) Elevated PSA (Acute) Elevated liver enzymes (Acute) Neuropathy (Acute) Screening PSA (prostate specific antigen) (Acute) Encounter for annual wellness visit (AWV) in Medicare patient (Acute) Ingrown toenail (Acute) Lumbar radiculopathy (Acute) Sacroiliitis (Acute) Chronic pain syndrome (Acute) Spondylosis of cervical spine (Acute) Chronic right sacroiliac joint pain (Acute) Supplemental oxygen dependent (Acute) Encounter for preoperative pulmonary examination (Acute) Dyspnea on exertion (Acute) Physical exam (Acute) Right hip pain (Acute) Neuropathy (Acute) Diabetes (Acute) Past Medical History Medical History Anxiety Arthralgia Crohn's disease Depression Diabetes Hearing loss Mastoiditis Myocardial infarction Neuropathy On beta clifford at home Right hip pain Skin cancer Subdural hematoma Supplemental oxygen dependent Family History Family History Father Cancer Mental illness in member of household Mother Cancer Sister No problems noted. 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 Cognitive needs: No Hearing needs: No Vision needs: No Meds Allergies Allergy/AdvReac Type Severity Reaction Status Date / Time amoxicillin [Amoxicillin] Allergy Mild RASH, Verified 01/15/22 14:31 hives, hives morphine Allergy rash Verified 01/15/22 14:31 Active Medications: Current Medications Lactated Ringer's (Lr) 1,000 mls @ 100 mls/hr IVCONT .Q10H ILDA Last Admin: 01/19/22 10:34 Dose: 100 mls/hr Home Medications Medication Instructions Recorded Confirmed Last Taken Type sertraline 100 mg tablet 100 mg PO DAILY 02/23/20 01/15/22 11/30/21 History aspirin 81 mg chewable tablet 81 mg PO DAILY 09/07/20 01/15/22 11/28/21 History clonazepam 0.5 mg tablet 0.5 mg PO BID 09/07/20 01/15/22 11/29/21 History dapsone 25 mg tablet 25 mg PO DAILY 09/07/20 01/15/22 11/30/21 History hydroxyzine HCl 25 mg tablet 25 mg PO TID PRN Rash 09/07/20 01/15/22 11/30/21 History metoprolol succinate 50 mg 50 mg PO DAILY 09/07/20 01/15/22 11/30/21 History tablet,extended release 24 hr mirtazapine 30 mg tablet 30 mg PO BEDTIME 09/07/20 01/15/22 11/30/21 History prazosin 5 mg capsule 5 mg PO BEDTIME 09/07/20 01/15/22 11/30/21 History quetiapine 25 mg tablet (Seroquel) 50 mg PO DAILY 09/07/20 01/15/22 11/30/21 History zolpidem 5 mg tablet 5 mg PO BEDTIME 12/18/21 01/15/22 Unknown History Exam Exam Date and Time: January 19, 2022 1202 Height,Weight and Vital Signs: Height 6 ft Weight 88.904 kg Last Vital Signs Temp 97.6 F 01/19/22 10:07 Pulse 87 01/19/22 10:07 Resp 16 01/19/22 10:07 BP 126/94 H 01/19/22 10:07 Pulse Ox 88 L 01/19/22 10:07 O2 Del Method 01/19/22 10:07 Pertinent Lab Results Pertinent Lab Results: Laboratory Tests 01/19/22 10:38 POC Glucose 225 H Airway Mallampati Class: II TM Dist: >3cm Heart: RRR Lungs: CTA Assessment and Plan Final Anesthetic Review ASA Class: III Final Preanesthetic Review: No Changes in Pt Med Stat, Meds/Allgs Chart Reviewed and Consent Obtained/Reviewed Patient Risk: Low Procedure Risk: Low Anesthetic Plan Anesthetic Plan: MAC: Disposition: Standard PACU
--- NOTE | 2022-01-19 12:13 | P.HPSUR_ITS ---
Pre-Procedural Eval Section A Date of Service: 01/19/22 The patient is an INPATIENT: No Changes since office visit: Yes Patient answered all questions The History & Physical has been completed within 30 days and I have reviewed it.: No Section B Chief Complaint: Sacroiliitis,Sacrococcygeal disorders, chronic jessy Details of Present Illness: as above Relevant Family History (Specify if Yes): No Relevant Social History: None Present Medications: None Medical History: No relevant PMH History of Previous Operations: Relevant previous surgery/procedure and date(s) Allergies: Allergies Allergy/AdvReac Type Severity Reaction Status Date / Time amoxicillin [Amoxicillin] Allergy Mild RASH, Verified 01/15/22 14:31 hives, hives morphine Allergy rash Verified 01/15/22 14:31 Review of Systems Sugical H&P ROS: Negative: Constitution, Cardiovascular, Respiratory, Neurological, Psychiatric, Hem-Onc, Allergic/Immunologic, Gastrointestinal, Genitourinary, Musculoskeletal, Integumentary, Endocrine and Eyes/Ears/Nose/Throat Exam Surgical H&P Exam: Normal: HEENT, Normal: Heart, Normal: Lungs, Normal: Extre mities, Normal: Abdomen, Normal: Skin and Normal: Neurological Plan Diagnosis/Plan: Unchanged I have reviewed the history and physical and performed a pertinent physical examination on my patient. No changes have occurred unless specified.
--- NOTE | 2022-01-19 12:27 | W.PM.OPN ---
Operative Note Operative Note Date of Service: 01/19/22 Narrative: Right diagnostic Sacroiliac joint injection Informed consent was explained thoroughly to the patient.? All questions about benefits and risks for the procedure were answered. ? Patient came to the operating room and was positioned prone on the operating table with the pillow under the pelvis.? ? [place] [employer] monitors were applied and patient was deeply sedated.? The lower back and buttocks of the patient were prepped with ChloraPrep prepped and draped with sterile utility towels.? Sterilely draped C-arm was brought over the operating field and sq picture of patient's pelvis was demonstrated on the screen.? For the right joint tilting C-arm contralateral to the site of the joint the most posterior portion of the joints was superimposed with anterior silhouette of the joint. ?Skin was injected in the projection of the joint slightly medial to the location of the joint with 25 gauge 1/2 inch needle using local lidocaine 2% . After that 22 gauge 3 and 1/2 inch needle was driven to the right joint in tunnel vision fashion.? When needle entered the joint capsule injection of the contrast was performed demonstrating intra-articular and minimally periarticular spread of the contrast.? After that 4 cc. of bupivacaine 0.5% was injected into each joint.? Upon completion of the injections the needle was removed .? Sterile dressing was applied.? Upon completion of the injection patient was taken outside of the operating room to the recovery room where recovered uneventfully.
--- NOTE | 2022-01-19 12:28 | P.BOP_ITS ---
Brief Operative Note Date of Service: 01/19/22 Pre-op diagnosis: Sacroiliitis Post-op diagnosis: same Procedure: diagnostic right sacroiliac joint injection Implants: none per Surgeon: Ministerio Leon MD Anesthesia: MAC Was an Electronic Typesetting Machine Operator used for this Procedure?: No Estimated blood loss (mL): 0 Pathology: none sent Condition: stable Disposition: PACU
[2022-01-19 13:01] VITALS: BP 125/79; PULSE 73; RESP 16; TEMP 36.7; O2SAT 92
[2022-01-19 13:16] VITALS: BP 135/90; PULSE 73; RESP 18; TEMP 36.4; O2SAT 91
--- NOTE | 2022-01-19 13:52 | HO.POSTANES ---
Post Anesthesia Evaluation Post Anesthesia Evaluation Vital Signs: Vital Signs Temp Pulse Resp BP Pulse Ox O2 Del Method 01/19/22 13:16 97.5 F 73 18 135/90 H 91 L Room Air, Nasal Cannula with ETCO2 01/19/22 13:01 98.0 F 73 16 125/79 92 Room Air 01/19/22 10:07 97.6 F 87 16 126/94 H 88 L Room Air Anesthesia: Monitored Mental Status: Awake Pain Control: Satisfactory Nausea/Vomiting: None Hydration: Adequate Anesthesia-Related Issues: No Anes. Related Issues
--- NOTE | 2022-01-19 16:52 | PC.NURSE ---
Pt's glasses and watch found in PACU closet post discharge. Pt contacted and pt states that he will roller picker belongings from security office at some time tomorrow. Belongings are in labeled ziplock bag and were brought to [facility] office by han Keating
== END 2022-01-19 13:38 | disposition home or self-care (01) ==
PROVIDERS: PCP Nurse Practitioner Family; Visit Provider Anesthesiology
PROC: 3E0U33Z Introduction of Anti-inflammatory into Joints, Percutaneous Approach (ICD-10-PCS; CPT 27096; principal; 2022-01-19 11:50)
DX: M46.1 Sacroiliitis, not elsewhere classified (principal); M53.3 Sacrococcygeal disorders, not elsewhere classified; G89.29 Other chronic pain; E10.8 Type 1 diabetes mellitus with unspecified complications; I25.2 Old myocardial infarction; Z95.5 Presence of coronary angioplasty implant and graft; S06.5XAA Traumatic subdural hemorrhage with loss of consciousness status unknown, initial encounter; X58.XXXA Exposure to other specified factors, initial encounter; Y93.89 Activity, other specified; Y92.834 Zoological garden (Zoo) as the place of occurrence of the external cause; Y99.0 Civilian activity done for income or pay; Z79.01 Long term (current) use of anticoagulants; Z79.4 Long term (current) use of insulin; Z79.82 Long term (current) use of aspirin; Z79.51 Long term (current) use of inhaled steroids; Z79.899 Other long term (current) drug therapy; Z88.0 Allergy status to penicillin; Z88.8 Allergy status to other drugs, medicaments and biological substances
CPT/HCPCS: G0260; 82947; J2795; J3010; J3300; Q9966; Q9967

== ENCOUNTER → 2022-01-22 12:07 | Outpatient (BNVA) | payer MEDICARE, MEDICAID, SELFPAY | PROVIDERS: PCP Nurse Practitioner Family; Visit Provider Anesthesiology | DX: M46.1 Sacroiliitis, not elsewhere classified (principal); M47.812 Spondylosis without myelopathy or radiculopathy, cervical region; M53.3 Sacrococcygeal disorders, not elsewhere classified; G89.29 Other chronic pain | CPT/HCPCS: Q3014 ==

== ENCOUNTER 2022-02-15 10:42 | Day surgery (SDC) | payer MEDICARE, MEDICAID, SELFPAY ==
[2022-02-08 09:53] VITALS: BMI 27.3
--- NOTE | 2022-02-14 11:02 | P.CONAN_ITS ---
Documented by User: Pennie Mason NP 02/14/22 11:10 HPI - Anesthesia Eval Consult details Narrative: 56yo M for Right Sacroiliac Joint Fusion Previously cx'd for low O2 sat. Pulmo cleared. Cardiac cleared (CAD with PHI 08/2020) PMFSH Active Problems Active Problems: All Active Problems (Updated 02/11/22 @ 18:32 [facility] Raynauds disease (Acute) Screening PSA (prostate specific antigen) (Acute) Restless leg syndrome (Acute) Elevated PSA (Acute) Elevated liver enzymes (Acute) Neuropathy (Acute) Screening PSA (prostate specific antigen) (Acute) Encounter for annual wellness visit (AWV) in Medicare patient (Acute) Ingrown toenail (Acute) Lumbar radiculopathy (Acute) Sacroiliitis (Acute) Chronic pain syndrome (Acute) Spondylosis of cervical spine (Acute) Chronic right sacroiliac joint pain (Acute) Supplemental oxygen dependent (Acute) Encounter for preoperative pulmonary examination (Acute) Dyspnea on exertion (Acute) Physical exam (Acute) Zhang syndrome (Acute) Zhang syndrome (Acute) Right hip pain (Acute) Neuropathy (Acute) Diabetes (Acute) Past Medical History Medical History (Updated 02/11/22 @ 18:32 [facility] Anxiety Arthralgia Crohn's disease Depression Diabetes Hearing loss Mastoiditis Myocardial infarction Neuropathy On beta clifford at home Right hip pain Skin cancer Subdural hematoma Supplemental oxygen dependent Family History Family History Father Cancer Mental illness in member of household Mother Cancer Sister No problems noted. Surgical History Surgical History (Updated 02/08/22 @ 09:38 by Yudy King RN) History of colonoscopy History of surgery History of surgery Hx of heart artery stent Social History Social History Housing: Condominium Are you a primary senior care provider to a significant other at home: No Alcohol intake: current Alcohol intake frequency: does not drink Patient Tobacco Use Status: Never used Tobacco e-Cigarette/Vaping Use: Never Used Second Hand Smoke Exposure: No Use of substances other than those prescribed or required for medical reasons: Yes Substance Use Type Other:: smokes Substance Use Frequency: Weekly Have you been hit, kicked, punched, or otherwise hurt by someone within the past year? 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 Cognitive needs: No Hearing needs: No Vision needs: No Meds Allergies Allergy/AdvReac Type Severity Reaction Status Date / Time amoxicillin [Amoxicillin] Allergy Mild rash/hives Verified 02/08/22 09:55 morphine Allergy Mild rash Verified 02/08/22 09:55 Home Medications Medication Instructions Recorded Confirmed Last Taken Type sertraline 100 mg tablet 100 mg PO DAILY 02/23/20 02/08/22 11/30/21 History aspirin 81 mg chewable tablet 81 mg PO DAILY 09/07/20 02/08/22 11/28/21 History clonazepam 0.5 mg tablet 0.5 mg PO BID 09/07/20 02/08/22 11/29/21 History dapsone 25 mg tablet 25 mg PO DAILY 09/07/20 02/08/22 11/30/21 History hydroxyzine HCl 25 mg tablet 25 mg PO TID PRN Rash 09/07/20 02/08/22 11/30/21 History metoprolol succinate 50 mg 50 mg PO DAILY 09/07/20 02/08/22 11/30/21 History tablet,extended release 24 hr mirtazapine 30 mg tablet 30 mg PO BEDTIME 09/07/20 02/08/22 11/30/21 History prazosin 5 mg capsule 5 mg PO BEDTIME 09/07/20 02/08/22 11/30/21 History quetiapine 25 mg tablet (Seroquel) 50 mg PO DAILY 09/07/20 02/08/22 11/30/21 History zolpidem 5 mg tablet 5 mg PO BEDTIME 12/18/21 02/08/22 Unknown History Exam Exam Date and Time: February 14, 2022 1102 Height,Weight and Vital Signs: Height 6 ft Weight 91.626 kg Narrative Narrative: ECHO 08/2020 LV grossly normal in size EF 50-55% Inferolat richards hypokinetic Diastolic function was indeterminant LA is normal in size Aortic root is mildly dilated RV normal in size Systolic function mildly reduced RA size is upper limit of normal EKG 11/2021 ST @ 102 Low voltage QRS Cannot r/o inferior infarct Assessment and Plan Assessment Anesthesia Assessment: Chart Reviewed Documented by User: Karl Kang MD 02/15/22 13:42 PMF Past Medical History Medical History (Updated 02/11/22 @ 18:32 [facility] Anxiety Arthralgia Crohn's disease Depression Diabetes Hearing loss Mastoiditis Myocardial infarction Neuropathy On beta clifford at home Right hip pain Skin cancer Subdural hematoma Supplemental oxygen dependent Family History Family History Father Cancer Mental illness in member of household Mother Cancer Sister No problems noted. Family history of problems with anesthesia: No Surgical History Surgical History (Updated 02/08/22 @ 09:38 by Yudy King RN) History of colonoscopy History of surgery History of surgery Hx of heart artery stent History of Problems with Anesthesia: No Social History Social History [facility] Are you a primary senior care provider to a significant other at home: No Alcohol intake: current Alcohol intake frequency: does not drink Patient Tobacco Use Status: Never used Tobacco e-Cigarette/Vaping Use: Never Used Second Hand Smoke Exposure: No Use of substances other than those prescribed or required for medical reasons: Yes Substance Use Type Other:: smokes Substance Use Frequency: Weekly Have you been hit, kicked, punched, or otherwise hurt by someone within the past year? 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 Cognitive needs: No Hearing needs: No Vision needs: No Meds Allergies Allergy/AdvReac Type Severity Reaction Status Date / Time amoxicillin [Amoxicillin] Allergy Mild rash/hives Verified 02/08/22 09:55 morphine Allergy Mild rash Verified 02/08/22 09:55 Home Medications Medication Instructions Recorded Confirmed Last Taken Type sertraline 100 mg tablet 100 mg PO DAILY 02/23/20 02/08/22 11/30/21 History aspirin 81 mg chewable tablet 81 mg PO DAILY 09/07/20 02/08/22 11/28/21 History clonazepam 0.5 mg tablet 0.5 mg PO BID 09/07/20 02/08/22 11/29/21 History dapsone 25 mg tablet 25 mg PO DAILY 09/07/20 02/08/22 11/30/21 History hydroxyzine HCl 25 mg tablet 25 mg PO TID PRN Rash 09/07/20 02/08/22 11/30/21 History metoprolol succinate 50 mg 50 mg PO DAILY 09/07/20 02/08/22 11/30/21 History tablet,extended release 24 hr mirtazapine 30 mg tablet 30 mg PO BEDTIME 09/07/20 02/08/22 11/30/21 History prazosin 5 mg capsule 5 mg PO BEDTIME 09/07/20 02/08/22 11/30/21 History quetiapine 25 mg tablet (Seroquel) 50 mg PO DAILY 09/07/20 02/08/22 11/30/21 History zolpidem 5 mg tablet 5 mg PO BEDTIME 12/18/21 02/08/22 Unknown History Exam Airway Mallampati Class: II TM Dist: >3cm Neck ROM: Full Loose/Missing/Broken Teeth: No Heart: rrr Lungs: clear Assessment and Plan Final Anesthetic Review Family History of Problems with Anesthesia: No History of Problems with Anesthesia: No NPO: Yes ASA Class: III Final Preanesthetic Review: No Changes in Pt Med Stat, Meds/Allgs Chart Reviewed, Consent Obtained/Reviewed and Anes Risks/Benef Reviewed Patient Risk: Intermediate Procedure Risk: Low Anesthetic Plan Anesthetic Plan: GA Disposition: Standard PACU
[2022-02-15] VITALS (8 sets, daily range): BP systolic 121–145; BP diastolic 70–90; PULSE 72–79; RESP 12–16; TEMP 36.1–36.6; O2SAT 93–98
--- NOTE | ~2022-02-15 | FL_ITS ---
EXAMINATION: XR FLUOROSCOPY WITH IMAGES CLINICAL INFORMATION: Sacroiliac joint effusion COMPARISON: Radiographs pelvis 09/18/2021 TECHNIQUE: Fluoroscopy Supervised By: Dr. Ministerio Leon. Fluoroscopy Time: 0.7 minutes. Cumulative Dose: 44 mGy. DAP: 12 Gycm2. Images: 3. FINDINGS: Fusion device overlying the mid right SI joint. Lumbosacral alignment normal. No spondylolisthesis. FL/FL guidance in OR IMPRESSION: Fluoroscopy for pain management procedure.
--- NOTE | 2022-02-15 11:44 | MHC.SHP ---
Pre-Procedural Eval Section A Date of Service: 02/15/22 The patient is an INPATIENT: No Changes since office visit: Yes Patient answered all questions The History & Physical has been completed within 30 days and I have reviewed it.: No Section B Chief Complaint: Sacroiliitis, Details of Present Illness: as above Relevant Family History (Specify if Yes): No Relevant Social History: None Present Medications: see Short Stay Collaborative assessment Medical History: No relevant PMH History of Previous Operations: No relevant previous surgery Allergies: Allergies Allergy/AdvReac Type Severity Reaction Status Date / Time amoxicillin [Amoxicillin] Allergy Mild rash/hives Verified 02/08/22 09:55 morphine Allergy Mild rash Verified 02/08/22 09:55 Review of Systems Sugical H&P ROS: Negative: Constitution, Cardiovascular, Respiratory, Neurological, Psychiatric, Hem-Onc, Allergic/Immunologic, Gastrointestinal, Genitourinary, Musculoskeletal, Integumentary, Endocrine and Eyes/Ears/Nose/Throat Exam Surgical H&P Exam: Normal: HEENT, Normal: Heart, Normal: Lungs, Normal: Extremities, Normal: Abdomen, Normal: Skin and Normal: Neurological Plan Diagnosis/Plan: Unchanged I have reviewed the history and physical and performed a pertinent physical examination on my patient. No changes have occurred unless specified.
--- NOTE | 2022-02-15 11:50 | P.OP_ITS ---
Operative Note Operative Note Date of Service: 02/15/22 Narrative: Right sacroiliac joint stabilisation procedure. posterior sacroiliac joint fusion using LINQ SI joint stabilization system with C-arm fluoroscopy for guidance.? Mr. Smith is very pleasant 56 years old male who is suffering now the right sacroiliac joint insufficiency and sacroiliitis.??He failed conservative management of sacroiliitis.??He came today to receive the procedures as above.??The risks and benefits including bleeding, infection, peripheral nerve damage, failure to reduce the pain were explained to the patient.?The patient came to the operating room, he was positioned on the stretcher supine, [place] [employer] monitors were applied and patient was administered with general endotracheal anesthesia.??After that the patient was transferred on operating table and positioned prone with all pressure points protected. The patient was administered clindamycin 600 mg approximately 35 minutes before the start of the procedure.? Time-out was performed delineating correct site, side, and nature of the procedure, name and date of of the patient, risk of fire, need for DVT prophylaxis, need for antibiotics.? The patient was transferred?on?radiolucent table. All pressure points were protected again. Lower back and bilateral buttocks were prepped with ChloraPrep and draped with full body drape. 3. 5 cm posterior midline incision over the projection of the r igh S1 foramina was performed.? Soft tissue dissection done to sacroiliac joint and thorough blind dissection was made in the direction of the?sacroiliac joint.? K-wire pin was inserted into the sacroiliac joint and guiding instrument was inserted into the joint using the pin as a guide and advanced into the joint on the intermittent anterior posterior and lateral views.??? After that pin was removed and rasping device was inserted to broach and rasp sacroiliac joint.? Once joint was prepared and inserted the structural allograft implant was hammered into the joint . It was packed with ortho biologics in and around the implant to provide better opportunity? for bones fusion.? The position of the allograft was confirmed radiographically.? The wound was irrigated, hemostasis was achieved, wound was closed in 2 layers.? Surgery was concluded by performing standard suture closing technique:? 0 Polysorb suture was used to close the wound and fela were used to apptoximate the level of the skin.? Injection of the lidocaine 2% mixed with bupivacaine 0.5% was injected into the skin .? fela were applied to the skin level. Sterile?dressing was applied with bacitracin ointment .? The patient tolerated procedure well he was awaken, extubated and taken outside of the operating room to PACU where he recovered uneventfully. He went home without immediate complications. he will be wearing an SI joint fixation belt for the 10 weeks after the procedure.
[2022-02-15 12:26] LABS: Glucose, Whole Blood 258 mg/dL (60-115)
[2022-02-15] MEDS: Lactated Ringers 1,000 ML 100 ML IVCONT (12:26)
--- NOTE | 2022-02-15 13:15 | PM.OP ---
Brief Operative Note Date of Service: 02/15/22 Pre-op diagnosis: sacroiliac joint pain sacroiliitis right Post-op diagnosis: same Procedure: painteq SI joint stabilization with fusion Implants: liofilized cadaver bone with ortho biologicals Surgeon: Ministerio Leon MD Anesthesia: GETA Was an Aircraft Engine Specialist used for this Procedure?: No Estimated blood loss (mL): 45 Pathology: none sent Condition: stable Disposition: PACU
== END 2022-02-15 16:44 | disposition home or self-care (01) ==
PROVIDERS: PCP Nurse Practitioner Family; Visit Provider Anesthesiology
PROC: (CPT 27279; principal; 2022-02-15 12:40)
DX: M46.1 Sacroiliitis, not elsewhere classified (principal); R20.2 Paresthesia of skin; G89.4 Chronic pain syndrome; M53.3 Sacrococcygeal disorders, not elsewhere classified; M47.812 Spondylosis without myelopathy or radiculopathy, cervical region; I25.2 Old myocardial infarction; I10 Essential (primary) hypertension; Z95.5 Presence of coronary angioplasty implant and graft; E78.5 Hyperlipidemia, unspecified; E10.9 Type 1 diabetes mellitus without complications; Z79.4 Long term (current) use of insulin; Z79.82 Long term (current) use of aspirin; Z79.01 Long term (current) use of anticoagulants; Z79.899 Other long term (current) drug therapy; Z99.81 Dependence on supplemental oxygen; Z88.0 Allergy status to penicillin; Z88.8 Allergy status to other drugs, medicaments and biological substances
CPT/HCPCS: 27279; 82947; C1713; J0131; J0330; J1100; J2250; J2405; J2795; J3010; J3370

== ENCOUNTER → 2022-02-20 08:39 | Outpatient (BNVA) | payer MEDICARE, MEDICAID, SELFPAY | PROVIDERS: PCP Nurse Practitioner Family; Visit Provider Nurse Practitioner Family | DX: M46.1 Sacroiliitis, not elsewhere classified (principal); G89.4 Chronic pain syndrome; G89.29 Other chronic pain; M53.3 Sacrococcygeal disorders, not elsewhere classified; Z98.1 Arthrodesis status | CPT/HCPCS: 99212 ==

== ENCOUNTER → 2022-03-01 10:09 | Outpatient (BNVA) | payer MEDICARE, MEDICAID, SELFPAY | PROVIDERS: PCP Nurse Practitioner Family; Visit Provider Anesthesiology | DX: M46.1 Sacroiliitis, not elsewhere classified (principal); M53.3 Sacrococcygeal disorders, not elsewhere classified; G89.4 Chronic pain syndrome | CPT/HCPCS: 99212 ==

== ENCOUNTER 2022-03-31 09:24 | Outpatient (REF) | payer MEDICARE, MEDICAID, SELFPAY ==
[2022-03-31 11:00] LABS: MANUAL DIFF FLAG NO
[2022-03-31 11:11] LABS: Appearance Urine Clear; Color Urine Yellow; Glucose Urine UA >=1000 mg/dL (Negative); Leukocyte Esterase Urine Negative (Negative); Nitrite Urine Negative (Negative); PH 5.5 (5.0-9.0); Specific Gravity - Urine >= 1.030 (1.005-1.025); UMIC TRIGGER UACC YES; Urine Blood Negative (Negative); Urine Ketones Negative (Negative); Urine Protein Negative (Neg-Trace)
[2022-03-31 11:12] LABS: Estimated Average Glucose 140 mg/dL; Hemoglobin A1c % 6.5 %
[2022-03-31 11:16] LABS: Basophils Absolute Auto 0.1 X10*3/uL (0.0-0.2); Eosinophils Absolute Auto 0.1 X10*3/uL (0.0-0.4); Eosinophils Percent Auto 0.6 % (0-4); Hemoglobin 13.4 g/dl (14.0-18.0); Imm Gran Abs Auto 0.06 X10*3/uL (0.00-0.03); Imm Gran Pct Auto 0.6 % (0.0-0.4); Lymphocytes Absolute Auto 3.1 X10*3/uL (1.2-4.9); Lymphocytes Percent Auto 28.4 % (20-40); Mean Corpuscular HGB Conc 31.9 g/dl (31.0-36.0); Mean Corpuscular Hemoglobin 28.9 pg (27.0-33.0); Mean Corpuscular Volume 90.5 fL (80.0-98.0); Mean Platelet Volume 13.2 fL (9.4-12.4); Monocytes Absolute Auto 1.2 X10*3/uL (0.1-1.2); Monocytes Percent Auto 10.9 % (2-11); Neutrophils Absolute Auto 6.3 x10*3/uL (2.0-8.3); Neutrophils Percent Auto 58.5 % (45-73); Platelet Count 168 X10*3/uL (160-400); Red Blood Count 4.64 X10*6/uL (4.60-5.80); Red Cell Distribution Width 13.4 % (11.0-16.0); White Blood Count 10.8 X10*3/uL (4.8-10.8)
[2022-03-31 11:17] LABS: Bacteria Urine None Seen (None Seen); Hyaline Casts Urine 0-2 /LPF (0-2); RBC Urine 0-2 /HPF (0-2); Squamous Epithelial Cell Urine 0-2 /HPF (0-2); WBC Urine 0-5 /HPF (0-5)
[2022-03-31 11:41] LABS: Alkaline Phosphatase 86 U/L (39-117); Aspartate Amino Transferase 17 U/L (5-37); HDL Cholesterol 29 mg/dL; Triglycerides 141 mg/dL
[2022-03-31 11:42] LABS: Alanine Aminotransferase 35 U/L (0-40); Albumin Level 4.3 g/dL (3.5-5.0); Anion Gap 11 (12-20); Bilirubin Total 1.5 mg/dL (0.0-1.0); Blood Urea Nitrogen 16 mg/dL (9-16); Calcium 9.2 mg/dL (8.4-10.2); Carbon Dioxide 24 mmol/L (22-29); Chloride 106 mmol/L (96-108); Cholesterol 113 mg/dL; Estimated Glomerular Filt Rate > 60; LDL Cholesterol Calculated 56 mg/dl; Potassium 4.3 mmol/L (3.3-5.1); Sodium 137 mmol/L (135-145)
[2022-03-31 11:49] LABS: TSH reflex Free T4 1.57 uIU/mL (0.32-4.0)
[2022-03-31 12:03] LABS: Microalbumin Urine < 5.0 mg/L
[2022-03-31 13:09] LABS: Glucose Fasting 373 mg/dL (60-99)
== END 2022-03-31 09:25 | disposition home or self-care (01) ==
LOC: HO.HMGCLDS 09:24
PROVIDERS: PCP Nurse Practitioner Family; Visit Provider Nurse Practitioner Family
DX: Z00.00 Encounter for general adult medical examination without abnormal findings (principal); Z12.5 Encounter for screening for malignant neoplasm of prostate; E11.9 Type 2 diabetes mellitus without complications
CPT/HCPCS: 36415; 80053; 80061; 81001; 82043; 83036; 84153; 84443; 85025

== ENCOUNTER 2022-04-03 07:49 | Outpatient (REF) | payer MEDICARE, MEDICAID, SELFPAY ==
--- NOTE | ~2022-04-03 | CT_ITS ---
EXAMINATION: CT LUMBAR SPINE WITHOUT AND WITH CONTRAST CLINICAL INFORMATION: 56-year-old with radiculopathy, lumbar region. COMPARISON: None TECHNIQUE: Volumetric CT imaging of the lumbar spine was done with 2-D multiplanar reformatted reconstructions prior to and following the intravenous administration of 85 mL of Omnipaque [address] examination was performed using dose optimization techniques as appropriate, variously including the following: *Automated exposure control *Adjustment of mA and/or kV according to patient size (this includes techniques or standardized protocols for targeted exams where dose is matched to indication/reason for exam; i.e. extremities or head) *Use of iterative reconstruction technique DLP: 1117 mGy-cm FINDINGS: Alignment: There is trace thoracolumbar dextrocurvature, minimally convex to the right at T12-L1. Otherwise the lumbosacral spine is anatomically aligned. Lumbosacral Junction: Normal. There are 5 tei-pqf-pzamzfm lumbar-type vertebral bodies. Vertebral Bodies: Well maintained with normal height. No compression fractures, anomalies or other unusual deformities. Disc Spaces and Endplates: Xlau-ox-bambomps disc volume loss at L5-S1 and mild disc volume loss at L4-L5 with minimal disc volume loss at L3-L4. Endplates appear intact. There are mild degrees of multilevel anterior and paravertebral spondylosis largely between L4-L5 and T12-L1 inclusive. 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 There is a tubular-shaped device embedded within the posterior aspect of the right sacral alum, which has the appearance of an orthopedic anchor. Correlate with previous surgical procedures. Spinal Levels: L5-S1: Minor annular bulging noted, with a superimposed shallow central disc protrusion without neural impingement or thecal sac encroachment. There is mild facet arthropathy on the left with no significant canal or neuroforaminal stenosis. L4-L5: Mild diffuse disc bulging is noted with slight encroachment on the ventral dural sac without definite neural impingement. Mild ligamentum flavum thickening is noted with zrio-yh-ykljvwhb left-sided facet arthropathy and mild right-sided facet arthropathy. No significant canal or neuroforaminal stenosis. L3-L4: Mild diffuse disc bulging is noted with slight flattening of the ventral dural sac. No significant facet arthrosis, canal or neuroforaminal stenosis. L2-L3: No significant disc bulge or herniation. No significant facet arthrosis, canal or neuroforaminal stenosis. L1-L2: No significant disc bulge or herniation. No significant facet arthrosis, canal or neuroforaminal stenosis. T12-L1: No disc bulge or herniation. No facet arthrosis, canal or neuroforaminal stenosis. T11-T12: Partially imaged. Possible left-sided inferior foraminal disc herniation at this level which cannot be confirmed with a high degree of certainty. Consider MRI to better assess. No canal stenosis. Minor facet arthrosis noted. Paraspinal/Retroperitoneal: Subcentimeter water attenuation structure, upper pole left kidney, likely a small cyst. Limited evaluation.?No specific follow up recommended based on the current ACR Best Practice Guidelines. The paravertebral soft tissues appear within normal limits. Scattered partially calcified atheromatous plaque seen throughout the abdominal aorta and iliac vessels. Suspect the possibility of significant luminal narrowing of the right common iliac artery. Suggest correlation with peripheral pulses. CT/CT lumbar spine wo/w IV con IMPRESSION: 1. Discogenic degenerative changes at L4-L5 and L5-S1 with mild degrees of multilevel spondylosis and disc bulging as described above with a shallow central disc protrusion at L5-S1 without neural impingement. 2. Multilevel mild disc bulging without neural impingement and multilevel mild spondylosis. No significant lumbar spinal canal or neuroforaminal stenosis. 2. Partially imaged possible left-sided inferior foraminal disc herniation at T11-T12. Consider MRI to better assess. 3. Suspect significant luminal narrowing of the right common iliac artery related to atheromatous changes. Recommend correlation with peripheral pulses.
[2022-04-03] MEDS: iohexoL 350 MG/ML 100 ML INFUS..BTL 85 ML IV (08:23)
== END 2022-04-03 07:50 | disposition home or self-care (01) ==
LOC: HO.CT 07:49
PROVIDERS: Visit Provider Anesthesiology
DX: M54.16 Radiculopathy, lumbar region (principal)
CPT/HCPCS: 72133; Q9967

== ENCOUNTER → 2022-04-23 13:24 | Outpatient (BNVA) | payer MEDICARE, MEDICAID, SELFPAY | PROVIDERS: PCP Nurse Practitioner Family; Visit Provider Anesthesiology | DX: G89.4 Chronic pain syndrome (principal); M46.1 Sacroiliitis, not elsewhere classified; G89.29 Other chronic pain; M53.3 Sacrococcygeal disorders, not elsewhere classified | CPT/HCPCS: 99212 ==

== ENCOUNTER → 2022-04-26 13:49 | Outpatient (BNVA) | payer MEDICARE, MEDICAID, SELFPAY | PROVIDERS: PCP Nurse Practitioner Family; Visit Provider Surgery Vascular Surgery | DX: I73.9 Peripheral vascular disease, unspecified (principal) | CPT/HCPCS: 99202 ==

== ENCOUNTER 2022-08-04 10:58 | Outpatient (REF) | payer MEDICARE, MEDICAID, SELFPAY ==
[2022-08-04 13:33] LABS: Hematocrit 40.5 % (42.0-52.0); Hemoglobin 13.2 g/dl (14.0-18.0); Mean Corpuscular HGB Conc 32.6 g/dl (31.0-36.0); Mean Corpuscular Hemoglobin 29.6 pg (27.0-33.0); Mean Corpuscular Volume 90.8 fL (80.0-98.0); Mean Platelet Volume 13.5 fL (9.4-12.4); Platelet Count 158 X10*3/uL (160-400); Red Blood Count 4.46 X10*6/uL (4.60-5.80); Red Cell Distribution Width 14.5 % (11.0-16.0); WBC ABN SCTR FOR CBC 1
[2022-08-04 13:37] LABS: Alanine Aminotransferase 23 U/L (0-40); Albumin Level 4.2 g/dL (3.5-5.0); Alkaline Phosphatase 73 U/L (39-117); Anion Gap 14 (12-20); Aspartate Amino Transferase 14 U/L (5-37); Bilirubin Total 2.5 mg/dL (0.0-1.0); Blood Urea Nitrogen 14 mg/dL (9-16); Calcium 9.1 mg/dL (8.4-10.2); Carbon Dioxide 25 mmol/L (22-29); Chloride 104 mmol/L (96-108); Estimated Glomerular Filt Rate > 60; Glucose Random 273 mg/dL (60-115); Potassium 4.2 mmol/L (3.3-5.1); Sodium 139 mmol/L (135-145)
[2022-08-04 14:01] LABS: Prostate Specific Antigen 1.95 ng/mL (<0.05-4.0)
[2022-08-04 14:04] LABS: Basophils Percent Manual 1 % (0-2); Eosinophils Percent Manual 4 % (0-4); Lymphocytes Percent Manual 20 % (20-40); Monocytes Percent Manual 8 % (2-11); Neutrophils Percent Manual 67 % (45-73)
[2022-08-04 14:07] LABS: RBC Morphology NOTED
[2022-08-04 14:08] LABS: Acanthocytes 2+ (3-5) /OIF; Large Platelet PRESENT; Platelet Estimate SLIGHTLY DECREASED (NORMAL); Platelet Morphology Comment NOTED
[2022-08-04 14:15] LABS: Schistocytes 2+ (3-5) /OIF
[2022-08-04 14:16] LABS: Basophils Abs Manual 0.1 X10*3/uL (0.0-0.2); Eosinophils Absolute Manual 0.5 X10*3/uL (0.0-0.4); Lymphocytes Absolute Manual 2.4 X10*3/uL (1.2-4.9)
[2022-08-04 14:51] LABS: Band Neutrophils Percent 0 % (3-5)
== END 2022-08-04 10:59 | disposition home or self-care (01) ==
LOC: HO.HMGCLDS 10:58
PROVIDERS: Absent Provider Urology; PCP Nurse Practitioner Family; Visit Provider Dermatology
DX: Z12.5 Encounter for screening for malignant neoplasm of prostate (principal); L30.8 Other specified dermatitis; R97.20 Elevated prostate specific antigen [PSA]
CPT/HCPCS: 36415; 80053; 84153; 85007; 85027

== ENCOUNTER 2022-08-24 08:15 | Outpatient (REF) | payer MEDICARE, MEDICAID, SELFPAY ==
[2022-08-24 11:33] LABS: Imm Gran Pct Auto 0.6 % (0.0-0.4); Lymphocytes Percent Auto 19.6 % (20-40); MANUAL DIFF FLAG SCAN; Mean Corpuscular Volume 95.8 fL (80.0-98.0); Red Cell Distribution Width 14.6 % (11.0-16.0); SCAN SMEAR FLAG 1
[2022-08-24 11:35] LABS: Basophils Absolute Auto 0.1 X10*3/uL (0.0-0.2); Eosinophils Percent Auto 0.2 % (0-4); Imm Gran Abs Auto 0.09 X10*3/uL (0.00-0.03); Lymphocytes Absolute Auto 2.8 X10*3/uL (1.2-4.9); Mean Corpuscular HGB Conc 31.7 g/dl (31.0-36.0); Mean Corpuscular Hemoglobin 30.4 pg (27.0-33.0); Mean Platelet Volume 13.2 fL (9.4-12.4); Monocytes Absolute Auto 1.3 X10*3/uL (0.1-1.2); Monocytes Percent Auto 9.5 % (2-11); Neutrophils Absolute Auto 9.7 x10*3/uL (2.0-8.3); Neutrophils Percent Auto 69.1 % (45-73); Platelet Count 155 X10*3/uL (160-400); Red Blood Count 4.28 X10*6/uL (4.60-5.80); White Blood Count 14.1 X10*3/uL (4.8-10.8)
[2022-08-24 11:36] LABS: PLT ABN DIST 1
[2022-08-24 11:52] LABS: Appearance Urine Turbid; Color Urine Orange; Glucose Urine UA >=1000 mg/dL (Negative); Leukocyte Esterase Urine Trace (Negative); Nitrite Urine Positive (Negative); PH 5.5 (5.0-9.0); Specific Gravity - Urine >= 1.030 (1.005-1.025); UMIC TRIGGER UACC YES; Urine Blood Negative (Negative); Urine Ketones Trace mg/dL (Negative); Urine Protein 30 (1+) mg/dL (Neg-Trace)
[2022-08-24 11:55] LABS: Bacteria Urine None Seen (None Seen); Estimated Average Glucose 105 mg/dL; Hemoglobin A1c % 5.3 %; Hyaline Casts Urine 0-2 /LPF (0-2); RBC Urine 0-2 /HPF (0-2); Squamous Epithelial Cell Urine 0-2 /HPF (0-2); UACC Culture Trigger YES; WBC Urine 0-5 /HPF (0-5)
[2022-08-24 12:01] LABS: Alanine Aminotransferase 39 U/L (0-40); Albumin Level 4.2 g/dL (3.5-5.0); Alkaline Phosphatase 89 U/L (39-117); Anion Gap 13 (12-20); Aspartate Amino Transferase 19 U/L (5-37); Bilirubin Total 2.7 mg/dL (0.0-1.0); Blood Urea Nitrogen 16 mg/dL (9-16); Carbon Dioxide 25 mmol/L (22-29); Chloride 108 mmol/L (96-108); Cholesterol 123 mg/dL; Estimated Glomerular Filt Rate > 60; Glucose Fasting 251 mg/dL (60-99); HDL Cholesterol 28 mg/dL; LDL Cholesterol Calculated 62 mg/dl; Potassium 4.5 mmol/L (3.3-5.1); Sodium 141 mmol/L (135-145); Total Protein 7.3 g/dL (6.5-8.0); Triglycerides 165 mg/dL
[2022-08-24 12:07] LABS: SLIDE REVIEW VERIFIED
[2022-08-24 12:18] LABS: TSH reflex Free T4 1.05 uIU/mL (0.32-4.0)
[2022-08-24 12:21] LABS: Microalbum/Creatinine Ratio Ur 5.7 ug/mg cr
== END 2022-08-24 08:16 | disposition home or self-care (01) ==
LOC: HO.HMGCLDS 08:15
PROVIDERS: PCP Nurse Practitioner Family; Visit Provider Nurse Practitioner Family
DX: E11.9 Type 2 diabetes mellitus without complications (principal); R17 Unspecified jaundice; R82.90 Unspecified abnormal findings in urine
CPT/HCPCS: 36415; 80053; 80061; 81001; 82043; 83036; 84443; 85025; 87086

== ENCOUNTER 2022-08-28 09:27 | Outpatient (REF) | payer MEDICARE, MEDICAID, SELFPAY ==
[2022-08-28 11:18] LABS: Appearance Urine Clear; Color Urine Yellow; Glucose Urine UA >=1000 mg/dL (Negative); Leukocyte Esterase Urine Negative (Negative); Nitrite Urine Negative (Negative); PH 7.5 (5.0-9.0); Specific Gravity - Urine >= 1.030 (1.005-1.025); UMIC TRIGGER UA YES; Urine Blood Negative (Negative); Urine Ketones Negative (Negative); Urine Protein Negative (Neg-Trace)
[2022-08-28 11:24] LABS: Bacteria Urine None Seen (None Seen); Hyaline Casts Urine 0-2 /LPF (0-2); RBC Urine 0-2 /HPF (0-2); Squamous Epithelial Cell Urine 0-2 /HPF (0-2); WBC Urine 0-5 /HPF (0-5)
[2022-08-28 11:42] LABS: Hemoglobin 13.9 g/dl (14.0-18.0); Red Cell Distribution Width 13.4 % (11.0-16.0); SCAN SMEAR FLAG 1
[2022-08-28 11:44] LABS: Basophils Absolute Auto 0.2 X10*3/uL (0.0-0.2); Basophils Percent Auto 0.8 % (0-2); Eosinophils Absolute Auto 0.1 X10*3/uL (0.0-0.4); Eosinophils Percent Auto 0.4 % (0-4); Hematocrit 43.4 % (42.0-52.0); Imm Gran Abs Auto 0.09 X10*3/uL (0.00-0.03); Imm Gran Pct Auto 0.5 % (0.0-0.4); Immature Retic Fraction 12.6 % (2.3-13.4); Lymphocytes Absolute Auto 3.3 X10*3/uL (1.2-4.9); Lymphocytes Percent Auto 18.2 % (20-40); Mean Corpuscular Hemoglobin 30.5 pg (27.0-33.0); Mean Corpuscular Volume 95.2 fL (80.0-98.0); Mean Platelet Volume 13.6 fL (9.4-12.4); Monocytes Absolute Auto 1.4 X10*3/uL (0.1-1.2); Monocytes Percent Auto 7.8 % (2-11); Neutrophils Percent Auto 72.3 % (45-73); Platelet Count 176 X10*3/uL (160-400); Red Blood Count 4.56 X10*6/uL (4.60-5.80); Retic HGB Equivalent 35.4 pg (30.0-35.0); Reticulocyte Percent 4.1 % (0.5-1.8); Reticulocytes Absolute 0.186 X10*6/uL (0.026-0.095); White Blood Count 17.9 X10*3/uL (4.8-10.8)
[2022-08-28 12:03] LABS: PLT ABN DIST 1
[2022-08-28 12:04] LABS: MANUAL DIFF FLAG NO
[2022-08-28 12:42] LABS: Alanine Aminotransferase 26 U/L (0-40); Albumin Level 4.2 g/dL (3.5-5.0); Alkaline Phosphatase 94 U/L (39-117); Anion Gap 14 (12-20); Aspartate Amino Transferase 12 U/L (5-37); Bilirubin Direct 0.5 mg/dL (0.0-0.5); Bilirubin Total 1.8 mg/dL (0.0-1.0); Blood Urea Nitrogen 12 mg/dL (9-16); Calcium 9.2 mg/dL (8.4-10.2); Carbon Dioxide 26 mmol/L (22-29); Chloride 104 mmol/L (96-108); Estimated Glomerular Filt Rate > 60; Glucose Random 313 mg/dL (60-115); Lactate Dehydrogenase 273 U/L (118-273); Potassium 4.2 mmol/L (3.3-5.1); Sodium 140 mmol/L (135-145); Total Protein 7.5 g/dL (6.5-8.0)
[2022-08-30 16:23] LABS: Transglutaminase Ab IgG <1.0 U/mL; Transglutaminase IgA <1.0 U/mL
[2022-08-30 18:24] LABS: Haptoglobin 76 mg/dL (43-212)
== END 2022-08-28 09:28 | disposition home or self-care (01) ==
LOC: HO.HMGCLDS 09:27
PROVIDERS: PCP Nurse Practitioner Family; Visit Provider Nurse Practitioner Family
DX: D64.9 Anemia, unspecified (principal); R17 Unspecified jaundice; R39.89 Other symptoms and signs involving the genitourinary system
CPT/HCPCS: 36415; 80053; 81001; 82248; 83010; 83615; 85025; 85045; 86364; 86880; 87086

== ENCOUNTER 2022-08-31 09:11 | Outpatient (REF) | payer MEDICARE, MEDICAID, SELFPAY ==
--- NOTE | ~2022-08-31 | XR_ITS ---
EXAMINATION: XR CHEST CLINICAL INFORMATION: Elevated white blood cells COMPARISON: 09/05/2020 TECHNIQUE: 2 views of the chest were obtained. FINDINGS: No significant abnormality is noted involving the heart, lungs, mediastinum, bony thorax or soft tissues. XR/XR chest 2V IMPRESSION: Unremarkable examination.
[2022-08-31 11:33] LABS: MANUAL DIFF FLAG NO
[2022-08-31 11:53] LABS: Basophils Absolute Auto 0.1 X10*3/uL (0.0-0.2); Basophils Percent Auto 1.1 % (0-2); Eosinophils Percent Auto 0.1 % (0-4); Hematocrit 43.1 % (42.0-52.0); Hemoglobin 13.8 g/dl (14.0-18.0); Imm Gran Abs Auto 0.08 X10*3/uL (0.00-0.03); Imm Gran Pct Auto 0.6 % (0.0-0.4); Lymphocytes Percent Auto 22.6 % (20-40); Mean Corpuscular Hemoglobin 30.1 pg (27.0-33.0); Mean Corpuscular Volume 93.9 fL (80.0-98.0); Mean Platelet Volume 12.5 fL (9.4-12.4); Monocytes Absolute Auto 1.1 X10*3/uL (0.1-1.2); Monocytes Percent Auto 8.2 % (2-11); Neutrophils Percent Auto 67.4 % (45-73); Platelet Count 194 X10*3/uL (160-400); Red Blood Count 4.59 X10*6/uL (4.60-5.80); Red Cell Distribution Width 13.2 % (11.0-16.0); White Blood Count 13.3 X10*3/uL (4.8-10.8)
== END 2022-08-31 09:12 | disposition home or self-care (01) ==
LOC: HO.HMGCX 09:11
PROVIDERS: PCP Nurse Practitioner Family; Visit Provider Nurse Practitioner Family
DX: D72.829 Elevated white blood cell count, unspecified (principal); R82.90 Unspecified abnormal findings in urine
CPT/HCPCS: 36415; 71046; 85025; 87086

== ENCOUNTER 2022-10-26 10:25 | Outpatient (REF) | payer MEDICARE, MEDICAID, SELFPAY ==
--- NOTE | ~2022-10-26 | XR_ITS ---
EXAMINATION: XR HAND, LEFT CLINICAL INFORMATION: Left hand pain. COMPARISON: None available. TECHNIQUE: PA, lateral, and oblique views of the left hand. FINDINGS: The bones and soft tissues are normal. No fracture. Alignment is anatomic. Joint spaces are maintained. No erosions or soft tissue calcifications. XR/XR hand LT min 3V IMPRESSION: Unremarkable left hand.
--- NOTE | ~2022-10-26 | XR_ITS ---
EXAMINATION: XR HAND, RIGHT CLINICAL INFORMATION: Right hand pain. COMPARISON: None available. TECHNIQUE: PA, lateral, and oblique views of the right hand. FINDINGS: The bones and soft tissues are normal. No fracture. Alignment is anatomic. Joint spaces are maintained. No erosions or soft tissue calcifications. XR/XR hand RT min 3V IMPRESSION: Unremarkable right hand.
== END 2022-10-26 10:26 | disposition home or self-care (01) ==
LOC: HO.HMGCX 10:25
PROVIDERS: PCP Nurse Practitioner Family; Visit Provider Nurse Practitioner Family
DX: M79.641 Pain in right hand (principal); M79.642 Pain in left hand
CPT/HCPCS: 73130

== ENCOUNTER 2022-12-19 07:48 | Outpatient (AMB) | payer MEDICARE, MEDICAID, SELFPAY ==
[2022-12-19 07:55] VITALS: BP 120/82; PULSE 91; O2SAT 85; BMI 26.2
--- NOTE | 2022-12-19 07:55 | MHC.PC.OV ---
Vital Signs 12/19/22 07:55 Height 6 ft Weight 193 lb 4 oz BMI 26.2 BP 120/82 Blood Pressure Location Rt brachial Position Sitting Pulse 91 Pulse Source Pulse Oximeter Pulse Oximetry (%) 85 L Oxygen Delivery Method Room Air Intake Visit Reasons: PE Allergies amoxicillin [Amoxicillin] Allergy (Mild, Verified 12/19/22 07:57) rash/hives morphine Allergy (Mild, Verified 12/19/22 07:57) rash Medication List - Last Reconciled 12/19/22 by KIMBERLI Starks- aspirin 81 mg PO DAILY atorvastatin 40 mg PO BEDTIME betamethasone dipropionate 0.05% topical blood sugar diagnostic (FreeStyle Lite Strips) Use to check fasting blood sugar and random sugar level clonazepam mg PO dapsone mg PO fluticasone propionate 50 mcg/actuation 1 spray intranasal BID FreeStyle Juan Luis 2 [place] (flash glucose scanning reader) tid testing NS FreeStyle Juan Luis 2 Sensor (flash glucose sensor) tid testing diabetes NS gabapentin 100 mg PO BID 30 days insulin glargine (Lantus Solostar U-100 Insulin) 25 units (0.25 mL) subcut QPM lancets (FreeStyle Lancets) Use to check fasting blood sugar and random sugar level lisinopril 2.5 mg PO DAILY 90 days metoprolol succinate ER 50 mg PO DAILY mirtazapine 30 mg PO BEDTIME pen needle, diabetic (BD Ultra-Fine Original Pen Needle) Use to inject insulin once a day prazosin 5 mg PO BEDTIME quetiapine mg PO sertraline 100 mg PO DAILY Tobacco use date assessed: 12/19/22 Dental Screening Dental Screen Date: 12/19/22 Did you have a dental visit in the last 12 months?: Yes Did you have a dental problem in the last 6 months where you did not have access to dental care?: No Was dental information given to patient?: Patient has dentist HPI PE HPI Details Pt is here for a PE. Will order labs. Colon screen is up to date, will find out when he is next due. PSA is up to date, sees urology. Pt is a diabetic, on an CYDNEY and a statin. A1C in office today is 4.6, though I do not think this is accurate. Will repeat A1C through lab draw. Microalbumin is up to date. Denies polyuria, polydipsia, does report neuropathy. Pt denies any signs and symptoms of hypoglycemia and does know how to correct it. Pt reports that his blood sugar has been averaging in the 90s. Eye exam is up to date. O2 saturation was also low, pt denies any shortness of breath, + cap refill. He does have a hx of raynaud's. Pt sees a therapist and psychiatrist regularly. Pt follows up with cardiology and vascular, [facility] Medical History Uncontrolled diabetes mellitus with hyperglycemia Myocardial infarction On beta clifford at home Supplemental oxygen dependent Right hip pain Mastoiditis Neuropathy Skin cancer Arthralgia Subdural hematoma Depression Hearing loss Anxiety Crohn's disease Diabetes Surgical History History of surgery History of surgery Hx of heart artery stent History of colonoscopy Family History Father Cancer Mental illness in member of household Mother Cancer Sister No problems noted. 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 Damion Mancilla, Jesica Gomes, Jaylen Pack and colleagues, with an educational rajan from [employer]. Review of Systems Const Denies chills and Denies fever(s) Eyes Denies blurry vision ENT Denies vertigo, Denies dizziness and Denies sore throat Card Denies chest pain at rest, Denies chest pain with activity, Denies diaphoresis, Denies dyspnea and Denies dyspnea on exertion Resp Denies cough, Denies dyspnea, Denies dyspnea on exertion and Denies wheezing GI Denies abdominal pain, Denies melena, Denies hematochezia, Denies constipation, Denies diarrhea and Denies loose stools Denies hematuria Musc Reports numbness and Reports tingling Skin/Breast Denies lesions Neuro Denies vertigo, Denies dizziness, Reports numbness and Reports tingling Psych Denies anxiety, Denies depression, Denies homicidal ideation, Denies suicidal ideation and Denies other (substance abuse) Aller/Immun Denies wheezing Physical exam (Primary Care) Vital Signs: Last Vital Signs Pulse 91 12/19/22 07:55 BP 120/82 12/19/22 07:55 Pulse Ox 85 L 12/19/22 07:55 Oxygen Delivery Method Room Air 12/19/22 07:55 BMI result Body Mass Index 26.2 Tobacco/Smoking Status: Tobacco use Status Tobacco use date assessed 12/19/22 12/19/22 07:58 Patient Tobacco Use Status Never used Tobacco 12/19/22 07:58 e-Cigarette/Vaping Use Never Used 12/19/22 07:58 Thrive Assessment: Date of Thrive Assessment Date Thrive assessed 04/17/22 12/19/22 07:58 Const General: cooperative Nutritional Appearance: well nourished Orientation/consciousness: patient oriented x3 HENMT Head: Yes normal to inspection, Yes normocephalic and Yes atraumatic Ears: TM's normal bilaterally Eyes General: appearance normal, both eyes and all related structures Alignment and Position: alignment normal and position normal Neck Neck: Yes normal visual inspection and Yes no lymphadenopathy Thyroid: Thyroid normal Resp Effort & Inspection: normal respiratory effort Auscultation: clear to auscultation bilaterally Cardio Rate: regular rate Rhythm: regular rhythm Heart sounds: S1 normal heart sound present, S2 normal heart sound present and no murmurs GI Palpation (GI): Soft to palpation and nontender Auscultation: normal bowel sounds Skin Other: bilat upper anti helix with faint dermatitis, slightly erythematous, dry appearing Rashes: no rashes Neuro General: patient oriented x3, moves all extremities, no focal motor deficits and deep tendon reflexes 2+ bilaterally Romberg Test: Negative Extrem Other: bilat feet: + sensation with use of monofilament, bluish hue to bilat distal feet including toes, also noted to fingers, weak dorsalis pedis pulses bilat, + cap refill Psych Appearance: grossly normal Mental Status: mental status grossly normal Speech and movement: Normal speech and movement present Affect: normal affect Attitude: cooperative Thought process: Normal thought process present Thought content: Normal thought content present Insight: Good insight present (Psych) Judgement: Good judgement present (Psych) Results AMB Hemoglobin A1c AMB Hemoglobin A1c 4.6 % Last Edit by Anu Rose CMA on 12/19/22 08:29 Results Reviewed Results Reviewed: Laboratory Last Values Hgb A1c (Clinic) 4.6 % (4.0-6.0) 12/19/22 08:08 Assessment and Plan Assessment & Plan (1) Diabetes: Code(s): E11.9 - Type 2 diabetes mellitus without complications Plan: Labs ordered Plan The patient agreed to the use of a medical specialist for this encounter. Scribed for EDVIN Guerra by Preeti Hinton medical specialist, on 12/19/2022 at 08:10 EST. Orders: Orders Complete Blood Count Auto Diff Today E11.9 - Type 2 diabetes mellitus without complications Comprehensive [place]. Panel Fast Today E11.9 - Type 2 diabetes mellitus without complications TSH reflex Free T4 Today E11.9 - Type 2 diabetes mellitus without complications Microalbumin, Random (w Creat) Today E11.9 - Type 2 diabetes mellitus without complications AMB Hemoglobin A1c Today E11.9 - Type 2 diabetes mellitus without complications UA CC w/rflx Micro + Cult Today E11.9 - Type 2 diabetes mellitus without complications Lipid Panel Today E11.9 - Type 2 diabetes mellitus without complications Hemoglobin A1c Today E11.9 - Type 2 diabetes mellitus without complications Coding Level of Care Code Est Pt Prev Care 40-64y(51143) Diagnoses Diabetes E11.9
== END 2022-12-19 08:45 | disposition home or self-care (01) ==
PROVIDERS: Visit Provider Nurse Practitioner Family
DX: Z00.00 Encounter for general adult medical examination without abnormal findings (principal); E11.9 Type 2 diabetes mellitus without complications
CPT/HCPCS: 83036; 99396

== ENCOUNTER 2022-12-19 08:46 | Outpatient (REF) | payer MEDICARE, MEDICAID, SELFPAY ==
[2022-12-19 11:59] LABS: Appearance Urine Clear; Color Urine Dark Yellow; Glucose Urine UA >=1000 mg/dL (Negative); Leukocyte Esterase Urine Negative (Negative); Nitrite Urine Negative (Negative); PH 5.5 (5.0-9.0); Specific Gravity - Urine >= 1.030 (1.005-1.025); UMIC TRIGGER UACC YES; Urine Blood Negative (Negative); Urine Ketones Negative (Negative); Urine Protein Negative (Neg-Trace)
[2022-12-19 12:13] LABS: Bacteria Urine None Seen (None Seen); Hyaline Casts Urine 0-2 /LPF (0-2); RBC Urine 0-2 /HPF (0-2); Squamous Epithelial Cell Urine 0-2 /HPF (0-2); WBC Urine 0-5 /HPF (0-5)
[2022-12-19 12:18] LABS: Hematocrit 42.6 % (42.0-52.0); Hemoglobin 13.8 g/dl (14.0-18.0); Mean Corpuscular HGB Conc 32.4 g/dl (31.0-36.0); Mean Corpuscular Hemoglobin 30.5 pg (27.0-33.0); Platelet Count 140 X10*3/uL (160-400); Red Blood Count 4.53 X10*6/uL (4.60-5.80); Red Cell Distribution Width 15.3 % (11.0-16.0); WBC ABN SCTR FOR CBC 1
[2022-12-19 12:39] LABS: Alanine Aminotransferase 32 U/L (0-40); Albumin Level 4.6 g/dL (3.5-5.0); Alkaline Phosphatase 86 U/L (39-117); Anion Gap 12 (12-20); Aspartate Amino Transferase 21 U/L (5-37); Bilirubin Total 2.4 mg/dL (0.0-1.0); Blood Urea Nitrogen 16 mg/dL (9-16); Calcium 9.5 mg/dL (8.4-10.2); Carbon Dioxide 23 mmol/L (22-29); Chloride 107 mmol/L (96-108); Cholesterol 120 mg/dL (<200); Estimated Glomerular Filt Rate > 60; Glucose Fasting 297 mg/dL (60-99); HDL Cholesterol 33 mg/dL (>40); LDL Cholesterol Calculated 64 mg/dL (<100); Sodium 138 mmol/L (135-145); TSH reflex Free T4 1.26 uIU/mL (0.32-4.0); Total Protein 7.9 g/dL (6.5-8.0); Triglycerides 118 mg/dL (<150)
[2022-12-19 12:49] LABS: Basophils Percent Manual 1 % (0-2); Lymphocytes Percent Manual 22 % (20-40); Monocytes Percent Manual 8 % (2-11); Neutrophils Percent Manual 69 % (45-73)
[2022-12-19 12:50] LABS: Band Neutrophils Percent 0 % (3-5); Large Platelet PRESENT; Platelet Estimate SLIGHTLY DECREASED (NORMAL); RBC Morphology NORMAL
[2022-12-19 12:51] LABS: Estimated Average Glucose 91 mg/dL; Hemoglobin A1c % 4.8 % (<6.0); Platelet Morphology Comment NOTE
[2022-12-19 13:10] LABS: Creatinine Urine 142.58 mg/dL; Microalbum/Creatinine Ratio Ur 6.3 ug/mg cr (<30)
[2022-12-19 14:52] LABS: Basophils Abs Manual 0.1 X10*3/uL (0.0-0.2); Lymphocytes Absolute Manual 2.8 X10*3/uL (1.2-4.9); Neutrophils Absolute Manual 8.6 X10*3/uL (2.0-8.3); White Blood Count 12.5 X10*3/uL (4.8-10.8)
== END 2022-12-19 08:47 | disposition home or self-care (01) ==
LOC: HO.HMGCLDS 08:46
PROVIDERS: PCP Nurse Practitioner Family; Visit Provider Nurse Practitioner Family
DX: E11.9 Type 2 diabetes mellitus without complications (principal)
CPT/HCPCS: 36415; 80053; 80061; 81001; 81003; 82043; 82570; 83036; 84443; 85007; 85027

== ENCOUNTER → 2023-01-23 09:09 | Outpatient (BNV) | payer MEDICARE, MEDICAID, SELFPAY | PROVIDERS: PCP Nurse Practitioner Family; Visit Provider Internal Medicine | DX: D72.829 Elevated white blood cell count, unspecified (principal) | CPT/HCPCS: 99204; 99212 ==

== ENCOUNTER 2023-01-29 07:37 | Outpatient (AMB) | payer MEDICARE, MEDICAID, SELFPAY ==
[2023-01-29 07:59] VITALS: BP 130/80; PULSE 78; TEMP 36.6; O2SAT 96; BMI 25.7
--- NOTE | 2023-01-29 07:59 | MHC.OFFVIS ---
Intake Vital Signs 01/29/23 07:59 Height 6 ft Weight 189 lb 9.561 oz BMI 25.7 BP 130/80 Blood Pressure Location Rt brachial Position Sitting Pulse 78 Pulse Source Pulse Oximeter Temp 98 F Temp Source Skin Pulse Oximetry (%) 96 Oxygen Delivery Method Room Air Intake Visit Reasons: Hand pain Intake Note: New patient here for hand pain. No prior circuit recorder. 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 He explains that when he does any activity that requires him to hold his finger in one position for longer periods, he finds that the left index finger gets stiff and stuck and he has to open and stretch his hand. He states it does not happen all time but only during activities such as fishing and playing video games. He denies other joint concerns. He has had surgeries for stents, H/O blood clots s/p back surgery and is currently being worked up for abnormal/elevated WBCs. He is also on Medication for T2DM, Neuropathy in the feet, Hypercholesteromia. Patient denies Raynaud's phenomenon to his hands but states he was told he had raynauds due to poor oxygenation readings from his fingers. He denies butterfly rash on face but endorses rash/postules to his extremities that started over 10 years ago. He has a recurrent rash/sores that derm treats with daily Dapsone - biopsy was inconclusive. 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 All was negative. Denies blood or froth in urine; patient denies hx of SOB, but has had chest pain later revealed as Cardiac Arrest leading to two stents. Patient denies hx of Carditis or Pleuritis. Patient was treated for blood clots s/p back surgery - Does take 81 mg aspirin. Denies fevers, excessive fatigue, unexplained weight-loss or weight-gain, Denies: thinning hair or hair loss; Denies: dry, itchy eyes, red burning eyes needing steroids to treat; dry mouth, mouth sores or ulcers; nose bleed; ringing in the ear, Denies abdominal pain, blood or mucous in stool; nausea, vomiting and diarrhea , difficulty swallowing, heartburn. He has had a misdiagnosis of Crohns not from symptoms but a misread colonoscopy - a second evaluation states no Crohns. Denies morning stiffness lasting more than 10 mins. [facility] Medical History (Updated 01/29/23 @ 12:09 by KIMBERLI Sebastian-) Locking finger joint History of blood clots Rash and nonspecific skin eruption Uncontrolled diabetes mellitus with hyperglycemia Myocardial infarction On beta clifford at home Supplemental oxygen dependent Right hip pain Mastoiditis Neuropathy Skin cancer Arthralgia Subdural hematoma Depression Hearing loss Anxiety Crohn's disease Diabetes Surgical History History of surgery History of surgery Hx of heart artery stent History of colonoscopy Family History (Updated 01/29/23 @ 08:03 by TEODORO Craig) Father Mental illness in member of household Cancer Mother Cancer H/O bilateral mastectomy Arthritis Sister No problems noted. 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 External ear normal, canal clear and tympanic membrane normal. NOSE/SINUS:? Airflow through both nares, no nasal discharge, no bleeding THROAT:? Oral mucosa moist, no ulcerations NECK:? No thyromegaly or masses, no adenopathy, trachea midline. HEART:? Regulrar rhythm, S1-S2 heard, no murmurs, rubs or gallops. LUNG:? Clear to percussion and auscultation ABD:? Normal bowel sounds, no organomegaly, masses or tenderness. EXTREMITIES:? No edema, no calf tenderness, normal peripheral pulses. NEURO:? Oriented and alert x3.? No focal weakness.? Reflexes symmetric.? Gait normal. SKIN:? scattered lesions in various stages of healing. No objective signs of Raynaud's phenomenon on fingers. Feet were cold and dusky. JOINT EXAM: ?Cervical Spine:.? Full range of motion without pain; no tenderness. Thoracic Spine:.? No scoliosis.? No tenderness on palpation. Lumbar Spine:.? Alignment normal.? Full range of motion without pain, no tenderness. Chest Wall:.? No tenderness, swelling, increased warmth or erythema. Hands:.? Normal pain-free range of motion without tenderness, swelling, increased warmth or erythema. Able to make a full fist and has a good system planning engineer strength. Wrists:.? Normal pain-free range of motion without tenderness, swelling, increased warmth or erythema. Elbows:. Normal pain-free range of motion without tenderness, swelling, increased warmth or erythema. Shoulders:.?? Full range of motion without pain. No tenderness, weakness, swelling, increased warmth or erythema. Hips:.? Full range of motion without pain. Hip bursa:.? No tenderness. Knees:.?? Normal pain-free range of motion without tenderness, swelling, increased warmth or erythema.? There is no effusion or crepitation Ankles:.? Normal pain-free range of motion without tenderness, swelling, increased warmth or erythema. Feet:.? Normal pain-free range of motion without tenderness, swelling, increased warmth or erythema. Tender points:? No tenderness to digital palpation at the occiput, trapezius, second rib, lateral epicondyle, knees, greater trochanter and gluteal area bilaterally. ? Results Reviewed Results Reviewed: [facility] [address] [place], [place] [address] XRay Report Signed EXAMINATION: XR HAND, RIGHT CLINICAL INFORMATION: Right hand pain. COMPARISON: None available. TECHNIQUE: PA, lateral, and oblique views of the right hand. FINDINGS: The bones and soft tissues are normal. No fracture. Alignment is anatomic. Joint spaces are maintained. No erosions or soft tissue calcifications. EXAMINATION: XR HAND, LEFT CLINICAL INFORMATION: Left hand pain. COMPARISON: None available. TECHNIQUE: PA, lateral, and oblique views of the left hand. FINDINGS: The bones and soft tissues are normal. No fracture. Alignment is anatomic. Joint spaces are maintained. No erosions or soft tissue calcifications. XR/XR hand LT min 3V IMPRESSION: Unremarkable left hand. EXAMINATION: XR CHEST CLINICAL INFORMATION: Elevated white blood cells COMPARISON: 09/05/2020 TECHNIQUE: 2 views of the chest were obtained. FINDINGS: No significant abnormality is noted involving the heart, lungs, mediastinum, bony thorax or soft tissues. XR/XR chest 2V IMPRESSION: Unremarkable examination. Assessment & Plan Assessment & Plan (1) Locking finger joint: Code(s): M24.849 - Other specific joint derangements of unspecified hand, not elsewhere classified (2) Raynaud's phenomenon without gangrene: Code(s): I73.00 - Raynaud's syndrome without gangrene (3) History of blood clots: Code(s): Z86.718 - Personal history of other venous thrombosis and embolism (4) Rash and nonspecific skin eruption: Code(s): R21 - Rash and other nonspecific skin eruption Plan #Finger Locking - Damion, 57 yoM presented for evaluation of index finger locking. After careful initial evaluation of history, diagnostics and physical examination(PE was unremarkable), I do not think there is an autoimmune or inflammatory underlying cause. It seems a factor of mechanics when patient keeps is finger in certain holding positions for extended periods during fishing or playing video games. PE was benign. No thickening of tendons observed and joints were WNL. Xrays were also unremarkable I encouraged patient to take frequent breaks to stretch and relax his fingers. #Possible Raynaud's - Patient has a history of concern for low oxygen readings from his fingers. During PE, his fingers were WNL and he denies color changes during temperature changes. He even stipulated to fishing in extreme temps without gloves and has had no vasoconstriction characteristics of Raynaud's. I also found that his feet were cold and dusky to which he says they are always cold. I do not think this is an expression of Raynaud's but more likely related to vascular compromise of PVD for which he is being seen by Cardiac and Vascular specialties. He did have good pulses on on PE. Though he denied pain or color changes to hands and feet with temperature changes, he did have a digital tracing done (April 2022) by vascular that concluded Raynaud's given that there was global damping to all fingers but more severe in right 1st and 3rd digits . Nonetheless it seemed reasonable to encourage patient to wear socks and keep his feet warm. #Blood Clots: I will do labs to evaluate for anti-phospholipid syndrome given history of blood clots and ANCA and DORIS given the recurring rash and presumed Raynauds. He is currently aspirin and Statin. #Skin Lesions: Clustering and scattered lesions in various stages of healing. He uses oral Dapsone and is seen by derm. Per patient Biopsy done approximately 4 years ago was inconclusive. However, one wonders if there is an underlying vasculitis. I will see him in 3 weeks. Orders: Orders ANCA Vasculitides Today R21 - Rash and other nonspecific skin eruption, Z86.718 - Personal history of other venous thrombosis and embolism Anti Extractable Nuclear Ag Today R21 - Rash and other nonspecific skin eruption, Z86.718 - Personal history of other venous thrombosis and embolism Cardiolipin Antibodies Today R21 - Rash and other nonspecific skin eruption, Z86.718 - Personal history of other venous thrombosis and embolism DORIS Reflex Titer and Pattern Today R21 - Rash and other nonspecific skin eruption, Z86.718 - Personal history of other venous thrombosis and embolism Beta-2 Glycoprotein Antibody Today R21 - Rash and other nonspecific skin eruption, Z86.718 - Personal history of other venous thrombosis and embolism Lupus Anticoagulant Panel Today R21 - Rash and other nonspecific skin eruption, Z86.718 - Personal history of other venous thrombosis and embolism Coding Level of Care Code New Pt Level 4 (44603) Diagnoses Locking finger joint M24.849 Raynaud's phenomenon without gangrene I73.00 History of blood clots Z86.718 Rash and nonspecific skin eruption R21
== END 2023-01-29 08:45 | disposition home or self-care (01) ==
PROVIDERS: PCP Nurse Practitioner Family; Referring Provider Nurse Practitioner Family; Visit Provider Nurse Practitioner Family
DX: M24.842 Other specific joint derangements of left hand, not elsewhere classified (principal); I73.00 Raynaud's syndrome without gangrene; Z86.718 Personal history of other venous thrombosis and embolism; R21 Rash and other nonspecific skin eruption
CPT/HCPCS: 99204

== ENCOUNTER → 2023-01-29 07:37 | Outpatient (BNVA) | payer MEDICARE, MEDICAID, SELFPAY | PROVIDERS: PCP Nurse Practitioner Family; Visit Provider Nurse Practitioner Family | DX: M24.842 Other specific joint derangements of left hand, not elsewhere classified (principal); I73.00 Raynaud's syndrome without gangrene; R21 Rash and other nonspecific skin eruption; I25.2 Old myocardial infarction; E11.9 Type 2 diabetes mellitus without complications; K50.90 Crohn's disease, unspecified, without complications; L98.9 Disorder of the skin and subcutaneous tissue, unspecified; Z79.82 Long term (current) use of aspirin; Z79.899 Other long term (current) drug therapy; Z86.718 Personal history of other venous thrombosis and embolism; Z95.5 Presence of coronary angioplasty implant and graft | CPT/HCPCS: 36415; 81003; 85025; 85597; 85598; 85613; 85730; 86021; 86038; 86146; 86147; 86235; 99202 ==

== ENCOUNTER 2023-01-29 09:12 | Outpatient (REF) | payer MEDICARE, MEDICAID, SELFPAY ==
[2023-01-29 11:19] LABS: Basophils Absolute Auto 0.1 X10*3/uL (0.0-0.2); Basophils Percent Auto 1.1 % (0-2); Hematocrit 46.9 % (42.0-52.0); Hemoglobin 15.4 g/dl (14.0-18.0); Imm Gran Abs Auto 0.02 X10*3/uL (0.00-0.03); Imm Gran Pct Auto 0.2 % (0.0-0.4); Lymphocytes Absolute Auto 2.1 X10*3/uL (1.2-4.9); Lymphocytes Percent Auto 20.4 % (20-40); MANUAL DIFF FLAG SCAN; Mean Corpuscular HGB Conc 32.8 g/dl (31.0-36.0); Mean Corpuscular Hemoglobin 29.7 pg (27.0-33.0); Mean Corpuscular Volume 90.5 fL (80.0-98.0); Monocytes Absolute Auto 0.9 X10*3/uL (0.1-1.2); Monocytes Percent Auto 8.7 % (2-11); Neutrophils Percent Auto 69.6 % (45-73); PLT CLUMP 1; Red Blood Count 5.18 X10*6/uL (4.60-5.80); Red Cell Distribution Width 12.3 % (11.0-16.0); SCAN SMEAR FLAG 1
[2023-01-29 11:47] LABS: White Blood Count 10.1 X10*3/uL (4.8-10.8)
[2023-01-29 11:50] LABS: Appearance Urine Clear; Color Urine Dark Yellow; Glucose Urine UA 500 mg/dL (Negative); Leukocyte Esterase Urine Negative (Negative); Nitrite Urine Negative (Negative); PH 5.5 (5.0-9.0); Platelet Count 178 X10*3/uL (160-400); Specific Gravity - Urine >= 1.030 (1.005-1.025); Urine Blood Negative (Negative); Urine Ketones Negative (Negative); Urine Protein Trace mg/dL (Neg-Trace)
[2023-01-29 12:05] LABS: SLIDE REVIEW VERIFIED
[2023-02-01 12:24] LABS: Anti Nuclear Antibody Screen NEGATIVE (NEGATIVE)
[2023-02-02 19:03] LABS: Cardiolipin IgG Ab <2.0 GPL-U/mL; Cardiolipin IgM Ab <2.0 MPL-U/mL
[2023-02-03 14:05] LABS: PTT (LAC) Screen 36 sec (<=40)
[2023-02-04 23:09] LABS: Beta-2 Glycoprotein IgA <2.0 U/mL (<20.0); Beta-2 Glycoprotein IgG <2.0 U/mL (<20.0); Beta-2 Glycoprotein IgM <2.0 U/mL (<20.0)
[2023-02-05 14:19] LABS: Myeloperoxidase Antibody <1.0 AI; Proteinase 3 PR3 Antibodies <1.0 AI; SM/Ribonucleoprotein Ab <1.0 NEG AI (<1.0 NEG); Smith Protein <1.0 NEG AI (<1.0 NEG)
== END 2023-01-29 09:13 | disposition home or self-care (01) ==
LOC: HO.HMGCLDS 09:12
PROVIDERS: PCP Nurse Practitioner Family; Visit Provider Nurse Practitioner Family
DX: Z13.89 Encounter for screening for other disorder (principal)
CPT/HCPCS: 36415; 81003; 85025; 85597; 85598; 85613; 85730; 86021; 86038; 86146; 86147; 86235

== ENCOUNTER 2023-02-25 08:16 | Outpatient (AMB) | payer MEDICARE, MEDICAID, SELFPAY ==
--- NOTE | 2023-02-25 08:33 | A.OFFVIS_ITS ---
Intake Vital Signs 02/25/23 08:38 Height 6 ft Weight 195 lb 15.855 oz BMI 26.6 BP 138/70 Blood Pressure Location Rt brachial Position Sitting Pulse 70 Pulse Source Pulse Oximeter Temp 98.4 F Temp Source Skin Intake Visit Reasons: Gout Intake Note: Patient presents today to follow up on gout and test results. Organisation And Methods Analyst Required: No Accompanied by: Self / Same As Patient Allergies amoxicillin [Amoxicillin] Allergy (Mild, Verified 02/25/23 08:40) rash/hives morphine Allergy (Mild, Verified 02/25/23 08:40) rash HPI HPI Comments History of Present Illness Details Damion is here today for follow-up of possible trigger finger. He denies finger locking since last visit. Continues to deny it joint concerns. Prior Visit: Damion, is a pleasant 56 years old male who presents today for evaluation of finger locking. He explains that when he does any activity that requires him to hold his finger in one position for longer periods, he finds that the left index finger gets stiff and stuck and he has to open and stretch his hand. He states it does not happen all time but only during activities such as fishing and playing video games. He denies other joint concerns. He has had surgeries for stents, H/O blood clots s/p back surgery and is currently being worked up for abnormal/elevated WBCs. He is also on Medication for T2DM, Neuropathy in the feet, Hypercholesteromia. Patient denies Raynaud's phenomenon to his hands but states he was told he had raynauds due to poor oxygenation readings from his fingers. He denies butterfly rash on face but endorses rash/postules to his extremities that started over 10 years ago. He has a recurrent rash/sores that derm treats with daily Dapsone - biopsy was inconclusive. 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 All was negative. Denies blood or froth in urine; patient denies hx of SOB, but has had chest pain later revealed as Cardiac Arrest leading to two stents. Patient denies hx of Carditis or Pleuritis. Patient was treated for blood clots s/p back surgery - Does take 81 mg aspirin. Denies fevers, excessive fatigue, unexplained weight-loss or weight-gain, Denies: thinning hair or hair loss; Denies: dry, itchy eyes, red burning eyes needing steroids to treat; dry mouth, mouth sores or ulcers; nose bleed; ringing in the ear, Denies abdominal pain, blood or mucous in stool; nausea, vomiting and diarrhea , difficulty swallowing, heartburn. He has had a misdiagnosis of Crohns not from symptoms but a misread colonoscopy - a second evaluation states no Crohns. Denies morning stiffness lasting more than 10 mins. [facility] History (Updated 02/25/23 @ 10:52 by Luann Davalos [facility]) Bilateral cold feet Locking finger joint History of blood clots Rash and nonspecific skin eruption Uncontrolled diabetes mellitus with hyperglycemia Myocardial infarction On beta clifford at home Supplemental oxygen dependent Right hip pain Mastoiditis Neuropathy Skin cancer Arthralgia Subdural hematoma Depression Hearing loss Anxiety Crohn's disease Diabetes Surgical History History of surgery History of surgery Hx of heart artery stent History of colonoscopy Family History Father Mental illness in member of household Cancer Mother Cancer H/O bilateral mastectomy Arthritis Sister No problems noted. 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 (3) History of blood clots: Code(s): Z86.718 - Personal history of other venous thrombosis and embolism (4) Rash and nonspecific skin eruption: Code(s): R21 - Rash and other nonspecific skin eruption Plan #Finger Locking, Blood Clots, Rash, Cold Feet: After careful evaluation of history, medical records, diagnostics and physical examination, I do not think the patient has a Rheumatic disease or an active autoimmune or inflammatory process. The finger locking occurs with prolonged activity such as fishing and has not occurred since last visit; Cold feet onset since nerve damage and PVD; Blood clot s/p hip surgery and rash being treated by [facility] for 4 years with inconclusive biopsy. I discussed with patient that his lab results and evaluation of symptoms and PE are without autoimmune or inflammatory findings. However, the patient is encouraged to call the office should he experience red, warm, tender or swollen joints, recurring tendonitis, burning red eyes needing steroids, acute onset of muscle pain and weakness and headaches with vision changes. Coding Level of Care Code Est Pt Level 2 (98659) Diagnoses Locking finger joint M24.849 Bilateral cold feet R20.9 History of blood clots Z86.718 Rash and nonspecific skin eruption R21
[2023-02-25 08:38] VITALS: BP 138/70; PULSE 70; TEMP 36.9; BMI 26.6
== END 2023-02-25 09:03 | disposition home or self-care (01) ==
PROVIDERS: PCP Nurse Practitioner Family; Visit Provider Nurse Practitioner Family
DX: M24.849 Other specific joint derangements of unspecified hand, not elsewhere classified (principal); R20.9 Unspecified disturbances of skin sensation; Z86.718 Personal history of other venous thrombosis and embolism; R21 Rash and other nonspecific skin eruption
CPT/HCPCS: 99212

== ENCOUNTER → 2023-02-25 08:16 | Outpatient (BNVA) | payer MEDICARE, MEDICAID, SELFPAY | PROVIDERS: PCP Nurse Practitioner Family; Visit Provider Nurse Practitioner Family | DX: M24.842 Other specific joint derangements of left hand, not elsewhere classified (principal); R21 Rash and other nonspecific skin eruption; R20.9 Unspecified disturbances of skin sensation; Z86.718 Personal history of other venous thrombosis and embolism | CPT/HCPCS: 99212 ==

== ENCOUNTER 2023-04-22 08:05 | Outpatient (AMB) | payer MEDICARE, MEDICAID, SELFPAY ==
--- NOTE | 2023-04-22 08:09 | A.OFFPC_ITS ---
Vital Signs 04/22/23 08:12 04/22/23 08:36 Height 6 ft Weight 186 lb BMI 25.2 BP 130/80 Blood Pressure Location Rt brachial Position Sitting Pulse 49 L 64 Pulse Source Pulse Oximeter Pulse Oximetry (%) 98 Oxygen Delivery Method Room Air Intake Visit Reasons: 4 month fu Intake Note: Patient here for diabetes F/U. Allergies amoxicillin [Amoxicillin] Allergy (Mild, Verified 04/22/23 08:13) rash/hives morphine Allergy (Mild, Verified 04/22/23 08:13) rash Tobacco use date assessed: 04/22/23 Dental Screening Dental Screen Date: 04/22/23 Did you have a dental visit in the last 12 months?: Yes Did you have a dental problem in the last 6 months where you did not have access to dental care?: No Was dental information given to patient?: Patient has dentist HPI 4 month fu HPI Details Pt is a diabetic, on an CYDNEY and a statin. A1C in office today is 5.7. Microalbumin is up to date. Denies polyuria, polydipsia, and neuropathy. Pt denies any signs and symptoms of hypoglycemia and does know how to correct it. Eye exam is up to date. Pt follows up with podiatry. [facility] Medical History Bilateral cold feet Locking finger joint History of blood clots Rash and nonspecific skin eruption Uncontrolled diabetes mellitus with hyperglycemia Myocardial infarction On beta clifford at home Supplemental oxygen dependent Right hip pain Mastoiditis Neuropathy Skin cancer Arthralgia Subdural hematoma Depression Hearing loss Anxiety Crohn's disease Diabetes Surgical History History of surgery History of surgery Hx of heart artery stent History of colonoscopy Family History Father Mental illness in member of household Cancer Mother Cancer H/O bilateral mastectomy Arthritis Sister No problems noted. 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 1. Little interest or pleasure in doing things: more than half the days 2. Feeling down, depressed, or hopeless: more than half the days 3. Trouble falling or staying asleep, or sleeping too much: more than half the days 4. Feeling tired or having little energy: several days 5. Poor appetite or overeating: more than half the days 6. Feeling bad about yourself - or that you are a failure or have let yourself or your family down: more than half the days 7. Trouble concentrating on things, such as reading the newspaper or watching television: more than half the days 8. Moving or speaking so slowly that other people could have noticed. Or the opposite - being so fidgety or restless that you have been moving around a lot more than usual: more than half the days 9. Thoughts that you would be better off or of hurting yourself in some way: not at all Total score: 15 Depression Screening Interpretation: Positive Depression Screening Follow-up: E xisting condition and In treatment Depression Screening Done: Yes 27504 - PHQ-9 Billing: Yes Source: Developed by Drs. Damion Mancilla, Jesica Gomes, Jaylen Pack and colleagues, with an educational rajan from [employer]. Thrive Questionnaire Date Thrive assessed: 04/22/23 I am a: Patient What is your living situation today?: I have a steady place to live Within the past 12 months, did the food you bought not last and you didn't have the money to get more?: Sometimes True Within the past 12 months, did you worry whether your food would run out before you got money to buy more?: Never true Do you have trouble paying for medicines?: No Do you have trouble getting transportation to medical appointments?: No Do you have trouble paying your heating and electricity bill?: No Do you have trouble taking care of your child, family member or friend?: No Do you have trouble with day-to-day activities such as bathing, preparing meals, shopping, managing finances, etc.?: No Are you currently unemployed and looking for a job?: No Are you interested in more education?: No THRIVE Score: 1 GRTETA-7 AMB Questionnaire GRETTA-7 Date GRETTA - 7 assessed: 04/17/22 Feeling nervous, anxious, or on edge: 3 = Nearly every day Not being able to stop or control worryin = Nearly every day Worrying too much about different things: 3 = Nearly every day Trouble relaxin = Nearly every day Being so restless that it is hard to sit still: 3 = Nearly every day Becoming easily annoyed or irritable: 3 = Nearly every day Feeling afraid as if something awful might happen: 2 = More than half the days Total GRETTA-7 score (0-4 normal; 5-9 mild; 10-14 moderate; 15-21 severe): 20 Source: Developed by Drs. Damion Mancilla, Jesica Gomes, Jaylen Pack and colleagues, with an educational rajan from [employer]. GRETTA-7 Assessment Billing GRETTA-7 Assessment Tool: GRETTA-7 Assessment 95906 Review of Systems Const Reports as per HPI Physical exam (Primary Care) Vital Signs: Last Vital Signs Pulse 64 04/22/23 08:36 BP 130/80 04/22/23 08:12 Pulse Ox 98 04/22/23 08:12 Oxygen Delivery Method Room Air 04/22/23 08:12 BMI result Body Mass Index 25.2 Tobacco/Smoking Status: Tobacco use Status Tobacco use date assessed 04/22/23 04/22/23 08:17 Patient Tobacco Use Status Never used Tobacco 04/22/23 08:17 e-Cigarette/Vaping Use Never Used 04/22/23 08:17 Depression Screening Interpretation: Positive Depression Screening Follow-up: Existing condition and In treatment Thrive Assessment: Date of Thrive Assessment Date Thrive assessed 04/17/22 04/22/23 08:17 Const General: cooperative Orientation/consciousness: patient oriented x3 Resp Effort & Inspection: normal respiratory effort Auscultation: clear to auscultation bilaterally Cardio Rate: regular rate Rhythm: regular rhythm Heart sounds: S1 normal heart sound present and S2 normal heart sound present Neuro General: patient oriented x3 Extrem Other: bilat feet: + sensation with use of monofilament, onychomycosis noted to bilat big toenails, left>right, partially ingrown, no signs of infection Psych Appearance: grossly normal Mental Status: mental status grossly normal Speech and movement: Normal speech and movement present Affect: normal affect Attitude: cooperative Thought process: Normal thought process present Thought content: Normal thought content present Insight: Good insight present (Psych) Judgement: Good judgement present (Psych) Results AMB Hemoglobin A1c AMB Hemoglobin A1c 5.7 % Last Edit by MEREDITH Lowery on 04/22/23 08 :37 Results Reviewed Results Reviewed: Laboratory Last Values Hgb A1c (Clinic) 5.7 % (4.0-6.0) 04/22/23 08:36 Assessment and Plan Assessment & Plan (1) Diabetes: Code(s): E11.9 - Type 2 diabetes mellitus without complications Plan: Labs ordered Plan The patient agreed to the use of a registered medical transcriptionist for this encounter. Scribed for EDVIN Guerra by Preeti Hinton registered medical transcriptionist, on 04/22/2023 at 08:20 EST. Orders: Orders Complete Blood Count Auto Diff Today E11.9 - Type 2 diabetes mellitus without complications TSH reflex Free T4 Today E11.9 - Type 2 diabetes mellitus without complications Lipid Panel Today E11.9 - Type 2 diabetes mellitus without complications [facility]. Panel Fast Today E11.9 - Type 2 diabetes mellitus without complications UA CC w/rflx Micro + Cult Today E11.9 - Type 2 diabetes mellitus without complications AMB Hemoglobin A1c Today E11.9 - Type 2 diabetes mellitus without complications Medications: Changed From gabapentin 100 mg PO BID 30 days 60 caps 4RF To gabapentin 100mg during day, 200mg at night 100 mg PO BID 30 days 90 caps 4RF Coding Level of Care Code Est Pt Level 3 (94427) Diagnoses Diabetes E11.9 Additional Codes GRETTA-7 Assessment Billing - GRETTA-7 Assessment Tool: GRETTA-7 Assessment 36711 ([id number])
[2023-04-22 08:12] VITALS: BP 130/80; PULSE 49; O2SAT 98; BMI 25.2
[2023-04-22 08:36] VITALS: PULSE 64
== END 2023-04-22 08:48 | disposition home or self-care (01) ==
PROVIDERS: PCP Nurse Practitioner Family; Visit Provider Nurse Practitioner Family
DX: E11.9 Type 2 diabetes mellitus without complications (principal)
CPT/HCPCS: 83036; 99213

== ENCOUNTER 2023-09-03 09:13 | Outpatient (REF) | payer MEDICARE, MEDICAID, SELFPAY ==
[2023-09-03 10:32] LABS: Appearance Urine Clear; Color Urine Dark Yellow; Glucose Urine UA Negative (Negative); Leukocyte Esterase Urine Trace (Negative); Nitrite Urine Negative (Negative); PH 5.5 (5.0-9.0); Specific Gravity - Urine >= 1.030 (1.005-1.025); UMIC TRIGGER UACC YES; Urine Blood Negative (Negative); Urine Ketones Trace mg/dL (Negative); Urine Protein 30 (1+) mg/dL (Neg-Trace)
[2023-09-03 10:36] LABS: Bacteria Urine None Seen (None Seen); Hyaline Casts Urine 0-2 /LPF (0-2); RBC Urine 0-2 /HPF (0-2); Squamous Epithelial Cell Urine 0-2 /HPF (0-2); WBC Urine 0-5 /HPF (0-5)
[2023-09-03 10:45] LABS: Hematocrit 44.5 % (42.0-52.0); Hemoglobin 14.5 g/dl (14.0-18.0); Mean Corpuscular HGB Conc 32.6 g/dl (31.0-36.0); Mean Corpuscular Hemoglobin 30.5 pg (27.0-33.0); Mean Corpuscular Volume 93.5 fL (80.0-98.0); Platelet Count 176 X10*3/uL (160-400); Red Blood Count 4.76 X10*6/uL (4.60-5.80); Red Cell Distribution Width 15.8 % (11.0-16.0)
[2023-09-03 10:46] LABS: WBC ABN SCTR FOR CBC 1
[2023-09-03 11:13] LABS: Alanine Aminotransferase 18 U/L (0-40); Albumin Level 4.5 g/dL (3.5-5.0); Alkaline Phosphatase 83 U/L (39-117); Anion Gap 16 (12-20); Aspartate Amino Transferase 16 U/L (5-37); Bilirubin Total 2.1 mg/dL (0.0-1.0); Blood Urea Nitrogen 20 mg/dL (9-16); Calcium 9.8 mg/dL (8.4-10.2); Carbon Dioxide 25 mmol/L (22-29); Chloride 105 mmol/L (96-108); Cholesterol 136 mg/dL (<200); Estimated Glomerular Filt Rate > 60; Glucose Fasting 157 mg/dL (60-99); HDL Cholesterol 30 mg/dL (>40); LDL Cholesterol Calculated 80 mg/dL (<100); Potassium 3.8 mmol/L (3.3-5.1); Sodium 142 mmol/L (135-145); Total Protein 7.9 g/dL (6.5-8.0); Triglycerides 130 mg/dL (<150)
[2023-09-03 11:16] LABS: Basophils Percent Manual 1 % (0-2); Eosinophils Percent Manual 1 % (0-4); Lymphocytes Percent Manual 18 % (20-40); Monocytes Percent Manual 6 % (2-11); Neutrophils Percent Manual 74 % (45-73)
[2023-09-03 11:17] LABS: Band Neutrophils Percent 0 % (3-5); Platelet Estimate NORMAL (NORMAL); Platelet Morphology Comment NORMAL; RBC Morphology NORMAL
[2023-09-03 11:18] LABS: Basophils Abs Manual 0.2 X10*3/uL (0.0-0.2); Eosinophils Absolute Manual 0.2 X10*3/uL (0.0-0.4); Lymphocytes Absolute Manual 3.1 X10*3/uL (1.2-4.9); Neutrophils Absolute Manual 12.7 X10*3/uL (2.0-8.3); White Blood Count 17.2 X10*3/uL (4.8-10.8)
[2023-09-03 11:32] LABS: TSH reflex Free T4 1.11 uIU/mL (0.32-4.0)
== END 2023-09-03 09:14 | disposition home or self-care (01) ==
LOC: HO.HMGCLDS 09:13
PROVIDERS: PCP Nurse Practitioner Family; Visit Provider Nurse Practitioner Family
DX: E11.9 Type 2 diabetes mellitus without complications (principal); R17 Unspecified jaundice
CPT/HCPCS: 36415; 80053; 80061; 81001; 84443; 85007; 85027

== ENCOUNTER 2023-09-03 09:31 | Outpatient (AMB) | payer MEDICARE, MEDICAID, SELFPAY ==
--- NOTE | 2023-09-03 09:49 | MHC.PC.OV ---
Vital Signs 09/03/23 09:52 Height 6 ft Weight 184 lb BMI 25.0 BP 110/78 Blood Pressure Location Lt brachial Position Sitting Pulse 62 Pulse Source Pulse Oximeter Pulse Oximetry (%) 76 L Oxygen Delivery Method Room Air Intake Visit Reasons: 3 month follow up DM Intake Note: Patient here for dm f/u. Allergies amoxicillin [Amoxicillin] Allergy (Mild, Verified 09/03/23 09:53) rash/hives morphine Allergy (Mild, Verified 09/03/23 09:53) rash Medication List - Last Reconciled 09/03/23 by Abimael Gold, [facility]- aspirin 81 mg PO DAILY atorvastatin 40 mg PO BEDTIME betamethasone dipropionate 0.05% 0.05 appl topical DAILY blood sugar diagnostic (FreeStyle Lite Strips) Use to check fasting blood sugar and random sugar level clonazepam 1 mg PO DAILY dapsone 100 mg PO DAILY FreeStyle [place] 2 [place] (flash glucose scanning reader) tid testing NS FreeStyle Juan Luis 2 Sensor (flash glucose sensor) tid testing diabetes NS gabapentin 1 cap in am, 2 caps in pm orally; insulin degludec (Tresiba FlexTouch U-100 insulin) 25 units (0.25 mL) subcut DAILY 30 days insulin glargine (Lantus Solostar U-100 Insulin) 3 units subcut DAILY lancets (FreeStyle Lancets) Use to check fasting blood sugar and random sugar level lisinopril 2.5 mg PO DAILY 90 days metoprolol succinate ER 50 mg PO DAILY mirtazapine 30 mg PO BEDTIME pen needle, diabetic (BD Ultra-Fine Original Pen Needle) Use to inject insulin once a day prazosin 5 mg PO BEDTIME quetiapine 50 mg PO DAILY sertraline 100 mg PO DAILY zolpidem 5 mg PO BEDTIME PRN Tobacco use date assessed: 04/22/23 Dental Screening Dental Screen Date: 04/22/23 HPI 3 month follow up DM HPI Details Pt is a diabetic, on an CYDNEY and a statin. A1C in office today is 4.3, though ? anemia, will assess CBC.Pt sugar was 119 today. Microalbumin is up to date. Denies polyuria, polydipsia, and neuropathy. Pt denies any signs and symptoms of hypoglycemia and does know how to correct it. Eye exam is up to date. Pt had labs drawn today, awaiting results. Pt sees urology for his PSA. Pt has a bluish hue to his feet. He is following up with vascular. [facility] Medical History (Updated 08/04/23 @ 14:26 by EDVIN Starks) Hypertensive retinopathy of both eyes Bilateral cold feet Locking finger joint History of blood clots Rash and nonspecific skin eruption Uncontrolled diabetes mellitus with hyperglycemia Myocardial infarction On beta clifford at home Supplemental oxygen dependent Right hip pain Mastoiditis Neuropathy Skin cancer Arthralgia Subdural hematoma Depression Hearing loss Anxiety Crohn's disease Diabetes Surgical History History of surgery History of surgery Hx of heart artery stent History of colonoscopy Family History Father Mental illness in member of household Cancer Mother Cancer H/O bilateral mastectomy Arthritis Sister No problems noted. 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 Damion Mancilla, Jesica Gomes, Jaylen Pack and colleagues, with an educational rajan from [employer]. Review of Systems Const Reports as per HPI Physical exam (Primary Care) Vital Signs: Last Vital Signs Pulse 62 09/03/23 09:52 BP 110/78 09/03/23 09:52 Pulse Ox 76 L 09/03/23 09:52 Oxygen Delivery Method Room Air 09/03/23 09:52 BMI result Body Mass Index 25.0 Tobacco/Smoking Status: Tobacco use Status Tobacco use date assessed 04/22/23 09/03/23 09:49 Patient Tobacco Use Status Never used Tobacco 09/03/23 09:49 e-Cigarette/Vaping Use Never Used 09/03/23 09:49 Thrive Assessment: Date of Thrive Assessment Date Thrive assessed 04/22/23 09/03/23 09:49 Const General: cooperative Orientation/consciousness: patient oriented x3 Resp Effort & Inspection: normal respiratory effort Auscultation: clear to auscultation bilaterally Cardio Rate: regular rate Rhythm: regular rhythm Heart sounds: S1 normal heart sound present and S2 normal heart sound present Neuro General: patient oriented x3 Extrem Other: bilat feet: + sensation with use of monofilament, feet intact, bluish hue to feet, absent dorsalis pedis pulses, onychomycosis noted bilat Psych Appearance: grossly normal Mental Status: mental status grossly normal Speech and movement: Normal speech and movement present Affect: normal affect Attitude: cooperative Thought process: Normal thought process present Thought content: Normal thought content present Insight: Good insight present (Psych) Judgement: Good judgement present (Psych) Results AMB Hemoglobin A1c AMB Hemoglobin A1c 4.3 % Last Edit by MEREDITH Lowery on 09/03/23 10:13 Results Reviewed Results Reviewed: Laboratory Last Values Hgb A1c (Clinic) 4.3 % (4.0-6.0) 09/03/23 10:10 Assessment and Plan Assessment & Plan (1) Bilateral cold feet: Code(s): R20.9 - Unspecified disturbances of skin sensation Plan: following up with vascular (2) Diabetes: Code(s): E11.9 - Type 2 diabetes mellitus without complications Plan: controlled, using sensor Plan The patient agreed to the use of a lead medical technologist for this encounter. Scribed for EDVIN Guerra by ceasar Quiroga scribe, on 09/03/2023 at 10:15 EST. Orders: Orders AMB Hemoglobin A1c Today E11.9 - Type 2 diabetes mellitus without complications Coding Level of Care Code Est Pt Level 3 (81609) Diagnoses Bilateral cold feet R20.9 Diabetes E11.9
[2023-09-03 09:52] VITALS: BP 110/78; PULSE 62; O2SAT 76; BMI 25.0
== END 2023-09-03 11:06 | disposition home or self-care (01) ==
PROVIDERS: PCP Nurse Practitioner Family; Visit Provider Nurse Practitioner Family
DX: R20.9 Unspecified disturbances of skin sensation (principal); E11.9 Type 2 diabetes mellitus without complications
CPT/HCPCS: 83036; 99213

== ENCOUNTER 2023-09-04 13:52 | Outpatient (REF) | payer MEDICARE, MEDICAID, SELFPAY ==
[2023-09-04 16:54] LABS: Bilirubin Direct 0.4 mg/dL (0.0-0.5); Bilirubin Total 2.6 mg/dL (0.0-1.0)
== END 2023-09-04 13:53 | disposition home or self-care (01) ==
LOC: HO.HMGCLDS 13:52
PROVIDERS: PCP Nurse Practitioner Family; Visit Provider Nurse Practitioner Family
DX: R17 Unspecified jaundice (principal)
CPT/HCPCS: 36415; 82247; 82248

== ENCOUNTER 2023-09-06 08:52 | Outpatient (REF) | payer MEDICARE, MEDICAID, SELFPAY ==
--- NOTE | ~2023-09-06 | US_ITS ---
EXAMINATION: US ABDOMEN COMPLETE CLINICAL INFORMATION: Unspecified jaundice. Elevated bilirubin. COMPARISON: Ultrasound abdomen complete 03/24/2020. CT abdomen and pelvis 01/18/2010. TECHNIQUE: Real-time imaging of the abdominal viscera. FINDINGS: PANCREAS: The pancreas appears unremarkable, without masses or ductal dilatation, with the exception of the tail which is obscured by bowel gas. ABDOMINAL AORTA: The proximal, mid, and distal segments are normal in caliber. INFERIOR VENA CAVA: Visualized portions are normal. LIVER: The liver is enlarged measuring over 19 cm in length with increased echogenicity consistent with hepatic steatosis. The liver contour is normal. No focal hepatic lesion. There is no intrahepatic biliary duct dilatation seen. GALLBLADDER: Normal. The gallbladder is physiologically distended without evidence of stones, sludge, polyps, wall thickening or pericholecystic fluid. COMMON BILE DUCT: Normal in caliber measuring 0.4 cm in diameter. RIGHT KIDNEY: Normal. No hydronephrosis. No renal calculi or focal parenchymal lesions. The kidney measures 11.0 cm in maximum dimension. LEFT KIDNEY: Normal. No hydronephrosis. No renal calculi or focal parenchymal lesions. The kidney measures 12.1 cm in maximum dimension. SPLEEN: The spleen is enlarged measuring 12.7 cm in maximum dimension. FREE FLUID: None. US/US abdomen complete IMPRESSION: Enlarged fatty liver with splenomegaly.
== END 2023-09-06 08:53 | disposition home or self-care (01) ==
LOC: HO.HMGCX 08:52
PROVIDERS: PCP Nurse Practitioner Family; Visit Provider Nurse Practitioner Family
DX: R17 Unspecified jaundice (principal)
CPT/HCPCS: 76700

== ENCOUNTER 2023-11-09 09:44 | Emergency (ER) | payer MEDICARE, MEDICAID, SELFPAY ==
--- NOTE | 2023-11-09 | ECG_ITS ---
Test Reason : chest pain Blood Pressure : / mmHG Vent. Rate : 079 BPM Atrial Rate : 079 BPM P-R Int : 152 ms QRS Dur : 096 ms QT Int : 352 ms P-R-T Axes : 057 -08 011 degrees QTc Int : 403 ms Normal sinus rhythm Inferior infarct (cited on or before 06-NOV-2016) Abnormal ECG When compared with ECG of 01-DEC-2021 09:05, QT has shortened Referred By: Generic ED Physician Electronically Signed By:NABEEL HUGHES MD
--- NOTE | ~2023-11-09 | XR_ITS ---
EXAMINATION: XR CHEST CLINICAL INFORMATION: Chest pain COMPARISON: Chest radiograph from 08/31/2022 TECHNIQUE: 2 views of the chest were obtained. FINDINGS: No focal consolidation. No pneumothorax. Trachea is midline. Cardiac mediastinal silhouette is not enlarged. No large pleural effusion. Lower cervical spinal hardware, grossly intact. Soft tissues are XR/XR chest 2V IMPRESSION: No acute cardiopulmonary process.
--- NOTE | ~2023-11-09 | CT_ITS ---
EXAMINATION: CT ANGIOGRAM OF THE CHEST WITH AND WITHOUT CONTRAST (CT PULMONARY ANGIOGRAM FOR PE) CLINICAL INFORMATION: Hypoxia COMPARISON: The report of chest CT without contrast 12/12/21 indicates no consolidation or adenopathy TECHNIQUE: Prior to contrast administration, noncontrast localization images were obtained. Subsequently, multidetector volumetric imaging was performed from the thoracic inlet to below the diaphragms following the administration of 65 mL Omnipaque 350 intravenous contrast. No contrast reaction reported Sagittal, coronal, and MIP oblique sagittal reformatted images were obtained on the CT workstation, uploaded to PACS, and reviewed. This CT examination was performed using dose optimization techniques as appropriate, variously including the following: *Automated exposure control *Adjustment of mA and/or kV according to patient size (this includes techniques or standardized protocols for targeted exams where dose is matched to indication/reason for exam; i.e. extremities or head) *Use of iterative reconstruction technique Total exam dose-length product 277 mGy-cm FINDINGS: QUALITY OF STUDY/CONTRAST BOLUS: Satisfactory. PULMONARY ARTERIES: No pulmonary emboli. THORACIC AORTA: No aneurysm. LUNG: There is narrowing of the transverse diameter of the trachea. There is a small opacity in the lateral aspect the superior segment of the right lower lobe. There are a few reticular opacities in the posterior right lower lobe. There are a few reticular opacities in the periphery of the left lower lobe. These were not present on 12/12/21. These could represent areas of atelectasis or small areas of pneumonia PLEURA: No pleural effusion or pneumothorax. MEDIASTINUM: There are no enlarged mediastinal or hilar lymph nodes. Equivocal thickening of the esophagus. No evidence of septal bowing or right heart strain. CORONARY ARTERY CALCIFICATION: Present CHEST WALL/AXILLA: There are some nonspecific axillary lymph nodes. OSSEOUS STRUCTURES: Partially included cervical instrumentation. UPPER ABDOMEN: No suspicious abnormality on limited assessment there is minimal nonspecific reflux into the central hepatic veins CT/CT angio chest PE protocol IMPRESSION: No pulmonary embolus demonstrated. Some scattered subsegmental lung base opacities could be atelectasis but are nonspecific. There may be some slight esophageal wall thickening. VTE: negative
[2023-11-09 09:53] VITALS: BP 121/76; PULSE 86; RESP 16; TEMP 36.5; O2SAT 93; BMI 25.4
--- NOTE | 2023-11-09 09:57 | ED.GENADULT ---
HPI - General Adult General Chief complaint: Chest Pain Stated complaint: chest pains Time Seen by Provider: 11/09/23 09:57 Source: patient Mode of arrival: ambulatory Limitations: no limitations History of Present Illness ED Provider: Adela Boothe PA-C HPI narrative: Patient is a 58 year old assigned male at with a history of PAD, anemia, raynauds, and dyspnea on exertion for which he is on 2 liters of oxygen presenting to the emergency department today with chest pain. Patient states that he has been having chest pain since 2099 on 11/08/2023 that is worse with inspiration. Patient denies any dizziness, lightheadedness, abdominal pain, nausea, vomiting, fever, chills, blurry vision, double vision, loss of vision, difficulty breathing, shortness of breath, back pain, night sweats, pain with urination, increased urinary frequency, increased urinary urgency, blood in his urine or stool, syncope or a near syncopal episode, recent trauma or falls, bowel incontinence, bladder incontinence, or any other complaints at this time. Onset (ago): hour(s) Location: chest Severity: mild Severity scale (1-10): 4 Relieving factors: none Exacerbating factors: other (inspiration) Associated symptoms: chest pain Treatments prior to arrival: none Related Data Home Medications ?Medication ?Instructions ?Recorded ?Confirmed sertraline 100 mg tablet 100 mg PO DAILY 02/23/20 09/03/23 metoprolol succinate 50 mg 50 mg PO DAILY 09/07/20 09/03/23 tablet,extended release 24 hr mirtazapine 30 mg tablet 30 mg PO BEDTIME 09/07/20 09/03/23 prazosin 5 mg capsule 5 mg PO BEDTIME 09/07/20 09/03/23 clonazepam 1 mg tablet 1 mg PO DAILY 02/20/22 09/03/23 dapsone 100 mg tablet 100 mg PO DAILY 02/20/22 09/03/23 quetiapine 50 mg tablet 50 mg PO DAILY 02/20/22 09/03/23 betamethasone dipropionate 0.05 % 0.05 appl topical DAILY 04/23/22 09/03/23 lotion zolpidem 5 mg tablet 5 mg PO BEDTIME PRN Nausea 01/29/23 09/03/23 Previous Rx's ?Medication ?Instructions ?Recorded blood sugar diagnostic (FreeStyle #100 ea 01/09/21 Lite Strips) lancets 28 gauge (FreeStyle #100 ea 02/28/21 Lancets) FreeStyle Juan Luis 2 Crockett (flash #1 ea 04/17/22 glucose scanning reader) FreeStyle Juan Luis 2 Sensor (flash #1 ea 04/17/22 glucose sensor) pen needle, diabetic 29 gauge x #100 ea 09/05/22 1/2 (BD Ultra-Fine Original Pen Needle) aspirin 81 mg chewable tablet 81 mg PO DAILY #90 tabs 09/29/22 gabapentin 100 mg capsule See Rx Instructions PO .COMPLEX 09/10/23 #90 caps lisinopril 2.5 mg tablet 2.5 mg PO DAILY 90 days #90 tabs 09/19/23 atorvastatin 40 mg tablet 40 mg PO BEDTIME #90 tabs 10/02/23 insulin glargine 100 unit/mL (3 25 unit (0.25 mL) subcut DAILY #15 10/29/23 mL) subcutaneous pen mL Allergies Allergy/AdvReac Type Severity Reaction Status Date / Time amoxicillin [Amoxicillin] Allergy Mild rash/hives Verified 11/09/23 09:54 morphine Allergy Mild rash Verified 11/09/23 09:54 Review of Systems Constitutional: Constitutional: Reports no additional constitutional complaints, Denies chills, Denies fever(s) and Denies night sweats Eyes: Eyes: Reports no additional eye complaints, Denies blurry vision, Denies change in vision, Denies diplopia, Denies eye discharge, Denies loss of vision and Denies eye pain ENT: Denies dizziness Cardiovascular: Cardiovascular: Reports no additional cardiovascular complaints, Reports chest pain, Denies lightheadedness, Denies Loss of Consciousness and Denies dyspnea Respiratory: Respiratory: Reports no additional respiratory complaints and Denies dyspnea Gastrointestinal: Gastrointestinal: Reports no additional gastrointestinal complaints, Denies abdominal pain, Denies melena, Denies hematochezia, Denies change in bowel habits and Denies change in stool character Genitourinary: Genitourinary: Reports no additional male genitourinary complaints, Denies hematuria, Denies oliguria, Denies difficulty urinating, Denies dysuria, Denies urinary frequency, Denies urinary hesitancy, Denies urinary incontinence and Denies urinary urgency Musculoskeletal: Musculoskeletal: Reports no additional musculoskeletal complaints, Denies numbness and Denies tingling Neurologic: Denies dizziness, Denies loss of vision, Denies numbness and Denies tingling Psychiatric: Psychiatric: Reports no additional psychiatric complaints Endocrine: Endocrine: Reports no additional endocrine complaints Hematologic/Lymphatic: Hematologic/Lymphatic: Reports no additional hematologic/lymphatic complaints Allergic/Immunologic: Allergic/Immunologic: Reports no additional allergic/immunologic complaints [facility] Past Medical History Attestation statement: The following information was validated with the patient. Source: old records reviewed and nursing notes reviewed Medical History Hypertensive retinopathy of both eyes Bilateral cold feet Locking finger joint History of blood clots Rash and nonspecific skin eruption Uncontrolled diabetes mellitus with hyperglycemia Myocardial infarction On beta [place] at home Supplemental oxygen dependent Right hip pain Mastoiditis Neuropathy Skin cancer Arthralgia Subdural hematoma Depression Hearing loss Anxiety Crohn's disease Diabetes Surgical History History of surgery History of surgery Hx of heart artery stent History of colonoscopy Family History Family History Father Mental illness in member of household Cancer Mother Cancer H/O bilateral mastectomy Arthritis Sister No problems noted. 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 Cognitive needs: No Hearing needs: No Vision needs: No Physical Exam ED Vital Signs: Vital Signs - 24 hr 11/09/23 09:53 11/09/23 12:15 11/09/23 14:43 Temperature 97.7 F Pulse Rate 86 64 59 Respiratory Rate 16 12 15 Blood Pressure 121/76 115/72 145/86 H Pulse Oximetry 93 92 92 Oxygen Delivery Method Room Air Nasal Cannula Room Air Oxygen Flow Rate 2 11/09/23 15:43 Temperature 98.0 F Pulse Rate 59 Respiratory Rate 15 Blood Pressure 145/86 H Pulse Oximetry 92 Oxygen Delivery Method Room Air Oxygen Flow Rate BMI result Body Mass Index 25.4 Const General: cooperative, no acute distress, alert and awake Nutritional Appearance: well nourished Orientation/consciousness: patient oriented x3 Limitations: no limitations HENMT Head: Yes normal to inspection and Yes atraumatic Ears: hearing grossly normal bilaterally and external ears normal General nose exam: Normal external nose present, no nasal discharge noted and no epistaxis Face and sinus: Yes normal facial exam, No abrasion and No laceration Mouth: Normal oral and palatal mucosa present, no drooling and no muffled voice Eyes General: appearance normal, both eyes and all related structures Periorbital: periorbital findings normal Eyelids: Yes eyelids normal Conjunctivae: conjunctivae normal Pupils: Equal, round and reactive pupils present EOM: EOMs intact bilaterally Neck Neck: Yes normal visual inspection, Yes full ROM and Yes no lymphadenopathy Chest Chest palpation & inspection: normal inspection of the chest Resp Effort & Inspection: normal respiratory effort and able to speak in complete sentences GI Inspection: Yes normal to inspection Neuro General: patient oriented x3 and moves all extremities Cranial nerves: Yes Equal, round and reactive pupils present Cognition (Neuro): normal cognition Extrem General: Yes normal to inspection, Yes full ROM and Yes capillary refill normal Psych Appearance: grossly normal Mental Status: mental status grossly normal Affect: normal affect Attitude: cooperative Thought process: Normal thought process present Thought content: Normal thought content present Insight: Good insight present (Psych) Medications Administered Discontinued Medications Generic Name Dose Route Start Last Admin Trade Name Freq PRN Reason Stop Dose Admin Iohexol 65 ml 11/09/23 12:49 11/09/23 12:49 Iohexol 350 Mg/Ml 100 Ml Infus..Btl IV 11/09/23 12:50 65 ml ONCE ONE Administration Ketorolac Tromethamine 15 mg 11/09/23 11:00 11/09/23 12:05 Ketorolac Tromethamine 15 Mg/Ml Vial IM 11/09/23 11:01 Not Given ONCE ONE Ketorolac Tromethamine 15 mg 11/09/23 11:33 11/09/23 11:35 Ketorolac Tromethamine 15 Mg/Ml Vial IVPUSH 11/09/23 11:34 15 mg ONCE ONE Administration Pantoprazole Sodium 40 mg 11/09/23 11:33 11/09/23 11:42 Pantoprazole Sodium 40 Mg/10 Ml Vial IVPUSH 11/09/23 11:34 40 mg ONCE ONE Administration Medical Decision Making Medical Decision Making [facility] Narrative: Patient is a 58 year old assigned male at with a history of PAD, anemia, raynauds, and dyspnea on exertion for which he is on 2 liters of oxygen presenting to the emergency department today with chest pain. Patient's physical exam was unremarkable. Patient's blood work showed an elevated WBC count of 16.8 which is consistent with a stress reaction the rest of the patient's labs were unremarkable. Patient's EKG was unremarkable. Patient's chest x-ray and chest CTA showed no acute process. I explained my physical exam findings as well as all test results to the patient. I answered all questions asked by the patient. I stressed the importance of the patient taking his medication as directed (either prescribed or as the over the counter packaging recommends). I stressed the importance of the patient following up with his primary care provider. I stressed the importance of the patient returning to the emergency department immediately if his symptoms were to worsen or if he were to develop any dizziness, shortness of breath, difficulty breathing, chest pain, blurry vision, loss of vision, nausea, vomiting, abdominal pain, fever, chills, back pain, or any other complaints. Patient verbalized agreement and understanding with this treatment plan and discharge. Differential Diagnosis Differential Diagnoses: The differential diagnosis associated with the presentation includes STEMI NSTEMI ACS Angina Unstable angina Chest pain Admission/Observation Consideration of admission/observation: Escalation of care including admission/observation considered Patient would have been admitted to the hospital had his work up had any findings where hospital admission was appropriate and his clinical presentation warranted hospital admission. Lab Data [facility] Lab Attestation statement: I reviewed the patient's lab results. My interpretation of these results are in the [facility] Rationale portion of this note. 11/09/23 10:08 11/09/23 10:08 Labs: Lab Results 11/09/23 11/09/23 11/09/23 Range/Units 10:08 11:30 13:51 WBC 16.8 H (4.8-10.8) X10*3/uL RBC 4.28 L (4.60-5.80) X10*6/uL Hgb 13.4 L (14.0-18.0) g/dl Hct 40.2 L (42.0-52.0) % MCV 93.9 (80.0-98.0) fL MCH 31.3 (27.0-33.0) pg MCHC 33.3 (31.0-36.0) g/dl RDW 15.0 (11.0-16.0) % Plt Count 149 L (160-400) X10*3/uL MPV 12.2 (9.4-12.4) fL Immature Gran % (Auto) Cancelled Neut % (Auto) Cancelled Lymph % (Auto) Cancelled [place] % (Auto) Cancelled Eos % (Auto) Cancelled Baso % (Auto) Cancelled Lymph # (Auto) Cancelled [place] # (Auto) Cancelled Eos # (Auto) Cancelled Baso # (Auto) Cancelled Abs Immat Gran (auto) Cancelled Absolute Neuts (auto) Cancelled Absolute Nucleated RBC 0.000 (0.0-0.012) X10*3/uL Nucleated RBC % (auto) 0.0 (0.0-0.2) /100WBC Neutrophils % (Manual) 74 H (45-73) % Band Neutrophils % 0 L (3-5) % Lymphocytes % (Manual) 13 L (20-40) % Monocytes % (Manual) 7 (2-11) % Eosinophils % (Manual) 6 H (0-4) % Abs Neuts (Manual) 12.4 H (2.0-8.3) X10*3/uL Lymphocytes # (Manual) 2.2 (1.2-4.9) X10*3/uL Monocytes # (Manual) 1.2 (0.1-1.2) X10*3/uL Eosinophils # (Manual) 1.0 H (0.0-0.4) X10*3/uL Platelet Estimate SLIGHTLY DECREASED (NORMAL) Plt Morphology Comment NORMAL RBC Morphology NOTED Acanthocytes (Spur) 1+ (0-2) /OIF Sodium 140 (135-145) mmol/L Potassium 4.4 (3.3-5.1) mmol/L Chloride 105 (96-108) mmol/L Carbon Dioxide 27 (22-29) mmol/L Anion Gap 12 (12-20) BUN 13 (9-16) mg/dL Creatinine 0.97 (0.5-1.4) mg/dL Estim Creat Clear Calc 92.2 Estimated GFR > 60 Random Glucose 238 H (60-115) mg/dL Calcium 9.4 (8.4-10.2) mg/dL Total Bilirubin 1.8 H (0.0-1.0) mg/dL AST 12 (5-37) U/L ALT 17 (0-40) U/L Alkaline Phosphatase 71 (39-117) U/L Troponin I High Sens < 2.7 < 2.7 (<3.5-35.0) ng/L Total Protein 7.1 (6.5-8.0) g/dL Albumin 4.2 (3.5-5.0) g/dL Influenza Type A (PCR) NEGATIVE (Negative) Influenza Type B (PCR) NEGATIVE (Negative) RSV RNA Qual (PCR) NEGATIVE (Negative) SARS-CoV-2 RNA (RT-PCR) NEGATIVE (Negative) Independent Interpretation I performed an independent interpretation of an: EKG, Plain X-Ray and CT Scan Interpretation: My interpretation is in agreement with the radiologist's impression of these imaging studies. EXAMINATION: XR CHEST CLINICAL INFORMATION: Chest pain COMPARISON: Chest radiograph from 08/31/2022 TECHNIQUE: 2 views of the chest were obtained. FINDINGS: No focal consolidation. No pneumothorax. Trachea is midline. Cardiac mediastinal silhouette is not enlarged. No large pleural effusion. Lower cervical spinal hardware, grossly intact. Soft tissues are XR/XR chest 2V IMPRESSION: No acute cardiopulmonary process. Dictated By: Nataliya Duff MD Signed By: Electronically signed by Nataliya Duff MD 11/09/23 5702 EXAMINATION: CT ANGIOGRAM OF THE CHEST WITH AND WITHOUT CONTRAST (CT PULMONARY ANGIOGRAM FOR PE) CLINICAL INFORMATION: Hypoxia COMPARISON: The report of chest CT without contrast 12/12/21 indicates no consolidation or adenopathy TECHNIQUE: Prior to contrast administration, noncontrast localization images were obtained. Subsequently, multidetector volumetric imaging was performed from the thoracic inlet to below the diaphragms following the administration of 65 mL Omnipaque 350 intravenous contrast. No contrast reaction reported Sagittal, coronal, and MIP oblique sagittal reformatted images were obtained on the CT workstation, uploaded to PACS, and reviewed. This CT examination was performed using dose optimization techniques as appropriate, variously including the following: *Automated exposure control *Adjustment of mA and/or kV according to patient size (this includes techniques or standardized protocols for targeted exams where dose is matched to indication/reason for exam; i.e. extremities or head) *Use of iterative reconstruction technique Total exam dose-length product 277 mGy-cm FINDINGS: QUALITY OF STUDY/CONTRAST BOLUS: Satisfactory. PULMONARY ARTERIES: No pulmonary emboli. THORACIC AORTA: No aneurysm. LUNG: There is narrowing of the transverse diameter of the trachea. There is a small opacity in the lateral aspect the superior segment of the right lower lobe. There are a few reticular opacities in the posterior right lower lobe. There are a few reticular opacities in the periphery of the left lower lobe. These were not present on 12/12/21. These could represent areas of atelectasis or small areas of pneumonia PLEURA: No pleural effusion or pneumothorax. MEDIASTINUM: There are no enlarged mediastinal or hilar lymph nodes. Equivocal thickening of the esophagus. No evidence of septal bowing or right heart strain. CORONARY ARTERY CALCIFICATION: Present CHEST WALL/AXILLA: There are some nonspecific axillary lymph nodes. OSSEOUS STRUCTURES: Partially included cervical instrumentation. UPPER ABDOMEN: No suspicious abnormality on limited assessment there is minimal nonspecific reflux into the central hepatic veins CT/CT angio chest PE protocol IMPRESSION: No pulmonary embolus demonstrated. Some scattered subsegmental lung base opacities could be atelectasis but are nonspecific. There may be some slight esophageal wall thickening. VTE: negative Dictated By: Juan Manuel Thapa MD Signed By: Electronically signed by Juan Manuel Thapa MD 11/09/23 1451 Vent. Rate: 079 BPM Atrial Rate: 079 BPM P-R Int: 152 ms QRS Dur: 096 ms QT Int: 352 ms P-R-T Axes: 057 -08 011 degrees QTc Int: 403 ms Normal sinus rhythm Inferior infarct (cited on or before 06-NOV-2016) Abnormal ECG When compared with ECG of 01-DEC-2021 09:05, QT has shortened DD/ 0944 Radiology Impression Discussion of test interpretation with radiology: I have reviewed the radiologist's reading. Discharge Plan Discharge Clinical Impression: Chest pain Patient Disposition: Home, Self-Care Instructions: Chest Pain (DC) Additional Instructions: Follow up with your primary care provider. Return to the emergency department immediately if your symptoms worsen or if you develop any dizziness, shortness of breath, difficulty breathing, chest pain, blurry vision, loss of vision, nausea, vomiting, abdominal pain, fever, chills, back pain, or any other complaints. Prescriptions: No Action (DME) FreeStyle Lite Strips Strip See Rx Instructions .ROUTE .MEDSUPPLY Qty: 100 1RF Rx Instructions: Use to check fasting blood sugar and random sugar level (DME) lancets [FreeStyle Lancets] 28 gauge misc See Rx Instructions .ROUTE .MEDSUPPLY Qty: 100 0RF Rx Instructions: Use to check fasting blood sugar and random sugar level (DME) pen needle, diabetic [BD Ultra-Fine Orig Pen Needle] 29 gauge x 1/2 needle See Rx Instructions .ROUTE .MEDSUPPLY Qty: 100 1RF Rx Instructions: Use to inject insulin once a day aspirin 81 mg tablet,chewable 81 mg PO DAILY Qty: 90 2RF gabapentin 100 mg capsule See Rx Instructions PO .COMPLEX Qty: 90 5RF Rx Instructions: 1 cap in am, 2 caps in pm orally; lisinopril 2.5 mg tablet 2.5 mg PO DAILY 90 Days Qty: 90 1RF atorvastatin 40 mg tablet 40 mg PO BEDTIME Qty: 90 1RF insulin glargine 100 unit/mL (3 mL) insulin pen 25 unit subcut DAILY Qty: 15 2RF sertraline 100 mg tablet 100 mg PO DAILY metoprolol succinate 50 mg tablet extended release 24 hr 50 mg PO DAILY mirtazapine 30 mg tablet 30 mg PO BEDTIME prazosin 5 mg capsule 5 mg PO BEDTIME (DME) FreeStyle Juan Luis 2 Crockett Misc See Rx Instructions .Route Qty: 1 0RF Rx Instructions: tid testing (DME) FreeStyle Juan Lusi 2 Sensor Kit See Rx Instructions .Route Qty: 1 4RF Rx Instructions: tid testing diabetes betamethasone dipropionate 0.05 % lotion 0.05 appl topical DAILY dapsone 100 mg tablet 100 mg PO DAILY quetiapine 50 mg tablet 50 mg PO DAILY clonazepam 1 mg tablet 1 mg PO DAILY zolpidem 5 mg tablet 5 mg PO BEDTIME PRN (Reason: Nausea) Referrals: Abimael Gold, [facility] [Primary Care Provider] - Interventions: ED Discharge Assessment Last Done: 11/09/23 15:43 Discharge Date/Time: 11/09/23 15:44 Print Language: [place]
[2023-11-09 10:13] LABS: Hematocrit 40.2 % (42.0-52.0); Hemoglobin 13.4 g/dl (14.0-18.0); Mean Corpuscular HGB Conc 33.3 g/dl (31.0-36.0); Mean Corpuscular Hemoglobin 31.3 pg (27.0-33.0); Mean Corpuscular Volume 93.9 fL (80.0-98.0); Mean Platelet Volume 12.2 fL (9.4-12.4); Platelet Count 149 X10*3/uL (160-400); Red Blood Count 4.28 X10*6/uL (4.60-5.80)
[2023-11-09 10:18] LABS: WBC ABN SCTR FOR CBC 1; White Blood Count 16.8 X10*3/uL (4.8-10.8)
[2023-11-09 10:27] LABS: Alanine Aminotransferase 17 U/L (0-40); Albumin Level 4.2 g/dL (3.5-5.0); Alkaline Phosphatase 71 U/L (39-117); Anion Gap 12 (12-20); Aspartate Amino Transferase 12 U/L (5-37); Bilirubin Total 1.8 mg/dL (0.0-1.0); Blood Urea Nitrogen 13 mg/dL (9-16); Calcium 9.4 mg/dL (8.4-10.2); Carbon Dioxide 27 mmol/L (22-29); Chloride 105 mmol/L (96-108); Creatinine Clr Calc Pharmacy 92.2; Estimated Glomerular Filt Rate > 60; Glucose Random 238 mg/dL (60-115); Potassium 4.4 mmol/L (3.3-5.1); Sodium 140 mmol/L (135-145); Total Protein 7.1 g/dL (6.5-8.0)
[2023-11-09 10:36] LABS: Band Neutrophils Percent 0 % (3-5); Eosinophils Percent Manual 6 % (0-4); Lymphocytes Absolute Manual 2.2 X10*3/uL (1.2-4.9); Lymphocytes Percent Manual 13 % (20-40); Monocytes Absolute Manual 1.2 X10*3/uL (0.1-1.2); Monocytes Percent Manual 7 % (2-11); Neutrophils Absolute Manual 12.4 X10*3/uL (2.0-8.3); Neutrophils Percent Manual 74 % (45-73)
[2023-11-09 10:37] LABS: Platelet Estimate SLIGHTLY DECREASED (NORMAL); Platelet Morphology Comment NORMAL
[2023-11-09 10:39] LABS: Acanthocytes 1+ (0-2) /OIF; RBC Morphology NOTED; Troponin-I High Sensitivity < 2.7 ng/L (<3.5-35.0)
[2023-11-09] MEDS: Ketorolac Tromethamine 15 MG/ML VIAL IVPUSH (11:35)
[2023-11-09] MEDS: Pantoprazole Sodium 40 MG/10 ML VIAL IVPUSH (11:42)
[2023-11-09 12:13] LABS: Influenza A PCR NEGATIVE (Negative); Influenza B PCR NEGATIVE (Negative); Resp Syncy Virus RNA Qual PCR NEGATIVE (Negative); SARS COV2 PCR INHOUSE NEGATIVE (Negative)
[2023-11-09 12:15] VITALS: BP 115/72; PULSE 64; RESP 12; O2SAT 92
[2023-11-09] MEDS: iohexoL 350 MG/ML 100 ML INFUS..BTL 65 ML IV (12:49)
[2023-11-09 14:34] LABS: Troponin-I High Sensitivity < 2.7 ng/L (<3.5-35.0)
[2023-11-09 14:43] VITALS: BP 145/86; PULSE 59; RESP 15; O2SAT 92
[2023-11-09 15:43] VITALS: BP 145/86; PULSE 59; RESP 15; TEMP 36.7; O2SAT 92
== END 2023-11-09 15:44 | disposition home or self-care (01) ==
PROVIDERS: Physician Assistant Medical; Emergency Provider Emergency Medicine; PCP Nurse Practitioner Family
DX: R07.9 Chest pain, unspecified (principal); E11.9 Type 2 diabetes mellitus without complications; I10 Essential (primary) hypertension; R06.00 Dyspnea, unspecified; Z99.81 Dependence on supplemental oxygen; Z03.818 Encounter for observation for suspected exposure to other biological agents ruled out; Z79.82 Long term (current) use of aspirin; Z79.4 Long term (current) use of insulin; Z79.899 Other long term (current) drug therapy; Z79.02 Long term (current) use of antithrombotics/antiplatelets
CPT/HCPCS: 0241U; 36415; 71046; 71275; 80053; 84484; 85007; 85027; 93005; 96372; 96374; 96375; 99283; 99284; 99285; J1885; J2470; Q9967

== ENCOUNTER → 2023-11-09 09:44 | Outpatient (BNV) | payer MEDICARE, MEDICAID, SELFPAY | PROVIDERS: Emergency Provider Emergency Medicine; PCP Nurse Practitioner Family; Visit Provider Internal Medicine Cardiovascular Disease | DX: R07.9 Chest pain, unspecified (principal); R94.31 Abnormal electrocardiogram [ECG] [EKG] | CPT/HCPCS: 93010 ==

== ENCOUNTER 2023-11-13 09:28 | Outpatient (AMB) | payer MEDICARE, MEDICAID, SELFPAY ==
[2023-11-13 09:30] VITALS: BP 140/86; PULSE 83; O2SAT 96; BMI 26.0
--- NOTE | 2023-11-13 09:30 | MHC.PC.OV ---
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 Chest XR was negative for acute cardiopulmonary process. CTA of chest was negative for PE, did show some scattered subsegmental lung base opacities, could be atelectasis but are nonspecific. EKG was unremarkable. Labs showed elevated WBC count of 16.8 which is consistent with a stress reaction, the rest of the patient's labs were unremarkable. Pt reports that he is no longer having chest pain. He follows up with cardiology yearly. Denies fever, chills, chest pain, and shortness of breath. Pt is very stressed due to family issues at home. He sees a therapist and psychiatrist. Pt does feel safe at home. Denies any SI and HI. [facility] Medical History Hypertensive retinopathy of both eyes Bilateral cold feet Locking finger joint History of blood clots Rash and nonspecific skin eruption Uncontrolled diabetes mellitus with hyperglycemia Myocardial infarction On beta clifford at home Supplemental oxygen dependent Right hip pain Mastoiditis Neuropathy Skin cancer Arthralgia Subdural hematoma Depression Hearing loss Anxiety Crohn's disease Diabetes Surgical History History of surgery History of surgery Hx of heart artery stent History of colonoscopy Family History Father Mental illness in member of household Cancer Mother Cancer H/O bilateral mastectomy Arthritis Sister No problems noted. 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 How often do you have a drink containing alcohol?: Never 3. How often do you have six or more drinks on one occasion?: Never Total Score: 0 Score Reviewed/Action Taken: Yes GRETTA-7 AMB Questionnaire GRETTA-7 Date GRETTA - 7 assessed: 11/13/23 Source: Developed by Drs. Damion Mancilla, Jesica Gomes, Jaylen Pack and colleagues, with an educational rajan from [employer]. GRETTA-7 Assessment Billing GRETTA-7 Assessment Tool: pt declined-do not bill Review of Systems Const Reports as per HPI Physical exam (Primary Care) Vital Signs: Last Vital Signs Pulse 83 11/13/23 09:30 BP 138/82 11/13/23 10:13 Pulse Ox 96 11/13/23 09:30 Oxygen Delivery Method Room Air 11/13/23 09:30 BMI result Body Mass Index 26.0 Tobacco/Smoking Status: Tobacco use Status Tobacco use date assessed 04/22/23 11/13/23 09:31 Patient Tobacco Use Status Never used Tobacco 11/13/23 09:31 e-Cigarette/Vaping Use Never Used 11/13/23 09:31 Thrive Assessment: Date of Thrive Assessment Date Thrive assessed 04/22/23 11/13/23 09:31 Const General: cooperative Orientation/consciousness: patient oriented x3 Resp Effort & Inspection: normal respiratory effort Auscultation: clear to auscultation bilaterally Cardio Rate: regular rate Rhythm: regular rhythm Heart sounds: S1 normal heart sound present and S2 normal heart sound present Neuro General: patient oriented x3 Psych Appearance: grossly normal Mental Status: mental status grossly normal Speech and movement: Normal speech and movement present Affect: normal affect Attitude: cooperative Thought process: Normal thought process present Thought content: Normal thought content present Insight: Good insight present (Psych) Judgement: Good judgement present (Psych) Assessment and Plan Assessment & Plan (1) Chest pain: Code(s): R07.9 - Chest pain, unspecified Plan: CP has ceased Plan The patient agreed to the use of a medical staff services manager for this encounter. Scribed for EDVIN Guerra by Preeti Hinton medical staff services manager, on 11/13/2023 at 09:55 EST. Coding Level of Care Code Est Pt Level 3 (48646) Diagnoses Chest pain R07.9
[2023-11-13 10:13] VITALS: BP 138/82
== END 2023-11-13 10:36 | disposition home or self-care (01) ==
PROVIDERS: PCP Nurse Practitioner Family; Visit Provider Nurse Practitioner Family
DX: R07.9 Chest pain, unspecified (principal)
CPT/HCPCS: 99213

== ENCOUNTER 2024-01-06 07:27 | Outpatient (AMB) | payer MEDICARE, MEDICAID, SELFPAY ==
[2024-01-06 07:30] VITALS: BP 102/64; PULSE 74; O2SAT 86; BMI 25.6
--- NOTE | 2024-01-06 07:30 | MHC.PC.OV ---
Vital Signs 01/06/24 07:30 Height 6 ft Weight 189 lb BMI 25.6 BP 102/64 Blood Pressure Location Lt brachial Position Sitting Pulse 74 Pulse Source Pulse Oximeter Pulse Oximetry (%) 86 L Oxygen Delivery Method Room Air Intake Visit Reasons: PE - see comments Intake Note: Pt is here today for his PE Allergies amoxicillin [Amoxicillin] Allergy (Mild, Verified 01/06/24 07:30) rash/hives morphine Allergy (Mild, Verified 01/06/24 07:30) rash Medication List - Last Reconciled 01/06/24 by Abimael Gold, [facility]- aspirin 81 mg PO DAILY atorvastatin 40 mg PO BEDTIME betamethasone dipropionate 0.05% 0.05 appl topical DAILY blood sugar diagnostic (FreeStyle Lite Strips) Use to check fasting blood sugar and random sugar level clonazepam 1 mg PO DAILY dapsone 100 mg PO DAILY FreeStyle Juan Luis 2 Dermott (flash glucose scanning reader) tid testing NS FreeStyle Juan Luis 2 Sensor (flash glucose sensor) tid testing diabetes NS gabapentin 1 cap in am, 2 caps in pm orally; insulin glargine 25 units (0.25 mL) subcut DAILY lancets (FreeStyle Lancets) Use to check fasting blood sugar and random sugar level lisinopril 2.5 mg PO DAILY 90 days metoprolol succinate ER 50 mg PO DAILY mirtazapine 30 mg PO BEDTIME pen needle, diabetic (BD Ultra-Fine Original Pen Needle) Use to inject insulin once a day prazosin 5 mg PO BEDTIME quetiapine 50 mg PO DAILY sertraline 100 mg PO DAILY zolpidem 5 mg PO BEDTIME PRN Tobacco use date assessed: 01/06/24 Dental Screening Dental Screen Date: 01/06/24 Did you have a dental visit in the last 12 months?: Yes Did you have a dental problem in the last 6 months where you did not have access to dental care?: Yes Was dental information given to patient?: Patient has dentist HPI PE - see comments HPI Details Pt is here for a PE. Will order labs. Colon screen is up to date. Due for PSA, will order. Denies dribbling with urination, weak stream, and frequent nocturia. Pt is a diabetic, on an CYDNEY and a statin. A1C in office today is 3.9, will repeat with labs to check accuracy. Due for microalbumin, will order. Denies polyuria, polydipsia, and does have some neuropathy. Pt denies any signs and symptoms of hypoglycemia and does know how to correct it. Pt reports that his lowest blood sugar has 116??? Pt is following up with cardiology and podiatry. Eye exam is scheduled. He was seeing rheumatology, thought he does NOT have raynauds, but rather vascular issues. I will increase his atorvastatin from 40mg to 80mg. Encouraged pt get all his labs drawn soon. Our pulse oximeter (finger) was 86%. Pt reported, they put a thing on my ear and I had plenty of Oxygen . + radial pulses bilat, pt reports he can walk for miles without SOB or pains. He does see vascular ([facility] stenting previously). Pt does have a psychiatrist and psychologist [facility] Medical History Hypertensive retinopathy of both eyes Bilateral cold feet Locking finger joint History of blood clots Rash and nonspecific skin eruption Uncontrolled diabetes mellitus with hyperglycemia Myocardial infarction On beta clifford at home Supplemental oxygen dependent Right hip pain Mastoiditis Neuropathy Skin cancer Arthralgia Subdural hematoma Depression Hearing loss Anxiety Crohn's disease Diabetes Surgical History History of surgery History of surgery Hx of heart artery stent History of colonoscopy Family History Father Mental illness in member of household Cancer Mother Cancer H/O bilateral mastectomy Arthritis Sister No problems noted. 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 1. Little interest or pleasure in doing things: several days 2. Feeling down, depressed, or hopeless: several days 3. Trouble falling or staying asleep, or sleeping too much: several days 4. Feeling tired or having little energy: several days 5. Poor appetite or overeating: several days 6. Feeling bad about yourself - or that you are a failure or have let yourself or your family down: not at all 7. Trouble concentrating on things, such as reading the newspaper or watching television: not at all 8. Moving or speaking so slowly that other people could have noticed. Or the opposite - being so fidgety or restless that you have been moving around a lot more than usual: several days 9. Thoughts that you would be better off or of hurting yourself in some way: not at all Total score: 6 Depression Screening Interpretation: Negative Depression Screening Done: Yes 77714 - PHQ-9 Billing: Yes Source: Developed by Drs. Damion Mancilla, Jesica Gomes, Jaylen Pack and colleagues, with an educational rajan from [employer] Thrive Questionnaire Date Thrive assessed: 12/30/23 I am a: Patient What is your living situation today?: I have a steady place to live Within the past 12 months, did the food you bought not last and you didn't have the money to get more?: Sometimes True Within the past 12 months, did you worry whether your food would run out before you got money to buy more?: Never true Do you have trouble paying for medicines?: No Do you have trouble getting transportation to medical appointments?: No Do you have trouble paying your heating and electricity bill?: No Do you have trouble taking care of your child, family member or friend?: No Do you have trouble with day-to-day activities such as bathing, preparing meals, shopping, managing finances, etc.?: No Are you interested in more education?: No Please select the resources that you would like help with: None Currently or been in a relationship where the following occur: No concerns reported THRIVE Score: 1 AUDIT C Alcohol Use Questionnaire (AUDIT-C) 1. How often do you have a drink containing alcohol?: Never 2. How many drinks containing alcohol do you have on a typical day when you are drinking?: 1 or 2 3. How often do you have six or more drinks on one occasion?: Never Total Score: 0 GRETTA-7 AMB Questionnaire GRETTA-7 Date GRETTA - 7 assessed: 11/13/23 Feeling nervous, anxious, or on edge: 1 = Several days Not being able to stop or control worryin = Several days Worrying too much about different things: 1 = Several days Trouble relaxin = Several days Being so restless that it is hard to sit still: 1 = Several days Becoming easily annoyed or irritable: 1 = Several days Feeling afraid as if something awful might happen: 0 = Not at all Total GRETTA-7 score (0-4 normal; 5-9 mild; 10-14 moderate; 15-21 severe): 6 Source: Developed by Drs. Damion Mancilla, Jesica Gomes, Jaylen Pack and colleagues, with an educational rajan from [employer] GRETTA-7 Assessment Billing GRETTA-7 Assessment Tool: GRETTA-7 Assessment 61739 Review of Systems Const Denies chills and Denies fever(s) Eyes Denies blurry vision ENT Denies vertigo, Denies dizziness and Denies sore throat Card Denies chest pain at rest, Denies chest pain with activity, Denies diaphoresis, Denies dyspnea and Denies dyspnea on exertion Resp Denies cough, Denies dyspnea, Denies dyspnea on exertion and Denies wheezing GI Denies abdominal pain, Denies melena, Denies hematochezia, Denies constipation, Denies diarrhea and Denies loose stools Denies hematuria Musc Denies numbness and Denies tingling Skin/Breast Denies lesions Neuro Denies vertigo, Denies dizziness, Denies numbness and Denies tingling Psych Denies anxiety, Denies depression, Denies homicidal ideation, Denies suicidal ideation and Denies other (substance abuse) Aller/Immun Denies wheezing Physical exam (Primary Care) Vital Signs: Last Vital Signs BP 102/64 01/06/24 07:30 BMI result Body Mass Index 25.6 Tobacco/Smoking Status: Tobacco use Status Tobacco use date assessed 01/06/24 01/06/24 07:32 Patient Tobacco Use Status Never used Tobacco 01/06/24 07:32 e-Cigarette/Vaping Use Never Used 01/06/24 07:32 PHQ-9: PHQ-9 Score PHQ-9: Total score 6 01/06/24 07:32 Depression Screening Interpretation: Negative Thrive Assessment: Date of Thrive Assessment Date Thrive assessed 12/30/23 01/06/24 07:32 Currently or been in a relationship where the following occur: No concerns reported Const General: cooperative Nutritional Appearance: well nourished Orientation/consciousness: patient oriented x3 HENMT Other: dry lips Head: Yes normal to inspection, Yes normocephalic and Yes atraumatic Ears: TM's normal bilaterally Eyes General: appearance normal, both eyes and all related structures Alignment and Position: alignment normal and position normal Neck Neck: Yes normal visual inspection, Yes no lymphadenopathy and Yes supple Resp Effort & Inspection: normal respiratory effort Auscultation: clear to auscultation bilaterally Cardio Rate: regular rate Rhythm: regular rhythm Heart sounds: S1 normal heart sound present, S2 normal heart sound present and no murmurs GI Palpation (GI): Soft to palpation and nontender Auscultation: normal bowel sounds Male General Exam: Yes normal external exam Penis: normal penis Scrotum: scrotum normal, testes descended bilaterally and no inguinal hernias Testes: no testicular mass Skin Other: just inferior to right patella with papular dermatitis with scabbing Rashes: no rashes Neuro General: patient oriented x3, moves all extremities, no focal motor deficits and deep tendon reflexes 2+ bilaterally Romberg Test: Negative Extrem Other: bilat feet: + sensation with use of monofilament, feet intact, + posterior tibialis bilat, weak dorsalis pedis pulses bilat, + radial pulses bilat, feet and hands with dusky hue Psych Appearance: grossly normal Mental Status: mental status grossly normal Speech and movement: Normal speech and movement present Affect: normal affect Attitude: cooperative Thought process: Normal thought process present Thought content: Normal thought content present Insight: Good insight present (Psych) Judgement: Good judgement present (Psych) Results AMB Hemoglobin A1c AMB Hemoglobin A1c 3.9 % Last Edit by Tabby Burns CMA on 01/06/24 07:49 Coding Level of Care Code Est Pt Level 3 (17130) Est Pt Prev Care 40-64y(91643) Diagnoses Diabetes E11.9 Encounter for routine adult physical exam with abnormal findings Z00.01 Screening PSA (prostate specific antigen) Z12.5 Iliac artery stenosis, right I77.1 Abnormal pulse oximetry R79.81 Additional Codes GRETTA-7 Assessment Billing - GRETTA-7 Assessment Tool: GRETTA-7 Assessment 07002 ([id number]) Assessment & Plan Assessment & Plan (1) Diabetes: Code(s): E11.9 - Type 2 diabetes mellitus without complications Category: Medical Plan: Labs ordered (2) Encounter for routine adult physical exam with abnormal findings: Code(s): Z00.01 - Encounter for general adult medical examination with abnormal findings Category: Medical Plan: Labs ordered (3) Screening PSA (prostate specific antigen): Code(s): Z12.5 - Encounter for screening for malignant neoplasm of prostate Category: Medical Plan: PSA ordered (4) Diabetes: Code(s): E11.9 - Type 2 diabetes mellitus without complications Category: Medical Plan: Labs ordered (5) Iliac artery stenosis, right: Code(s): I77.1 - Stricture of artery Category: Medical Plan: sees vascular, was stented in 2022, denies any claudication symptoms to RLE (6) Abnormal pulse oximetry: Code(s): R79.81 - Abnormal blood-gas level Category: Medical Plan: low pulse ox, though pt appear asymptomatic. slight dusky lower and upper extrem, though + sensation, sees vascular. Ear lobe checked previously with proper mechanism (according to pt at pain management). Was worked up by rheumatology, thought to note have raynauds, requesting follow up at rheumatology (sent to [place] [facility] to call pt for follow up) Plan The patient agreed to the use of a biomedical engineering supervisor for this encounter. Scribed for EDVIN Guerra by Preeti Hinton biomedical engineering supervisor, on 01/06/2024 at 07:50 EST. Orders: Orders Comprehensive [place]. Panel Fast Today E11.9 - Type 2 diabetes mellitus without complications, Z00.01 - Encounter for general adult medical examination with abnormal findings TSH reflex Free T4 Today E11.9 - Type 2 diabetes mellitus without complications, Z00.01 - Encounter for general adult medical examination with abnormal findings UA CC w/rflx Micro + Cult Today E11.9 - Type 2 diabetes mellitus without complications, Z00.01 - Encounter for general adult medical examination with abnormal findings Microalbumin, Random (w Creat) Today E11.9 - Type 2 diabetes mellitus without complications, Z00.01 - Encounter for general adult medical examination with abnormal findings Prostate Specific Antigen Scr Today Z12.5 - Encounter for screening for malignant neoplasm of prostate Hemoglobin A1c Today E11.9 - Type 2 diabetes mellitus without complications Complete Blood Count Auto Diff Today E11.9 - Type 2 diabetes mellitus without complications, Z00.01 - Encounter for general adult medical examination with abnormal findings Lipid Panel Today E11.9 - Type 2 diabetes mellitus without complications, Z00.01 - Encounter for general adult medical examination with abnormal findings AMB Hemoglobin A1c Today E11.9 - Type 2 diabetes mellitus without complications Medications: Changed From atorvastatin 40 mg PO BEDTIME 90 tabs 1RF To atorvastatin 80 mg PO BEDTIME 90 tabs 1RF
== END 2024-01-06 15:50 | disposition home or self-care (01) ==
PROVIDERS: PCP Nurse Practitioner Family; Visit Provider Nurse Practitioner Family
DX: Z00.00 Encounter for general adult medical examination without abnormal findings (principal); E11.9 Type 2 diabetes mellitus without complications; I77.1 Stricture of artery; Z12.5 Encounter for screening for malignant neoplasm of prostate; R79.81 Abnormal blood-gas level

== ENCOUNTER → 2024-01-06 07:27 | Outpatient (BNVA) | payer MEDICARE, MEDICAID, SELFPAY | PROVIDERS: PCP Nurse Practitioner Family; Visit Provider Nurse Practitioner Family ==

== ENCOUNTER 2024-01-06 08:21 | Outpatient (REF) | payer MEDICARE, MEDICAID, SELFPAY ==
[2024-01-06 10:24] LABS: Hematocrit 43.4 % (42.0-52.0); Hemoglobin 14.1 g/dl (14.0-18.0); Mean Corpuscular HGB Conc 32.5 g/dl (31.0-36.0); Mean Corpuscular Hemoglobin 30.7 pg (27.0-33.0); Mean Corpuscular Volume 94.3 fL (80.0-98.0); PLT CLUMP 1; Red Cell Distribution Width 14.7 % (11.0-16.0); Retic HGB Equivalent 34.1 pg (30.0-35.0); Reticulocyte Percent 5.2 % (0.5-1.8); Reticulocytes Absolute 0.241 X10*6/uL (0.026-0.095); WBC ABN SCTR FOR CBC 1
[2024-01-06 10:26] LABS: Appearance Urine Clear; Color Urine Yellow; Glucose Urine UA Negative (Negative); Leukocyte Esterase Urine Negative (Negative); Nitrite Urine Negative (Negative); PH 5.5 (5.0-9.0); Urine Blood Negative (Negative); Urine Ketones Negative (Negative); Urine Protein Negative (Neg-Trace)
[2024-01-06 10:34] LABS: Alanine Aminotransferase 28 U/L (0-40); Albumin Level 4.4 g/dL (3.5-5.0); Alkaline Phosphatase 73 U/L (39-117); Anion Gap 10 (12-20); Aspartate Amino Transferase 17 U/L (5-37); Bilirubin Total 2.6 mg/dL (0.0-1.0); Blood Urea Nitrogen 16 mg/dL (9-16); Calcium 9.4 mg/dL (8.4-10.2); Carbon Dioxide 26 mmol/L (22-29); Chloride 108 mmol/L (96-108); Cholesterol 95 mg/dL (<200); Estimated Glomerular Filt Rate > 60; Glucose Fasting 170 mg/dL (60-99); Glucose Random 170 mg/dL (60-115); HDL Cholesterol 34 mg/dL (>40); LDL Cholesterol Calculated 39 mg/dL (<100); Potassium 4.5 mmol/L (3.3-5.1); Sodium 139 mmol/L (135-145); Total Protein 7.7 g/dL (6.5-8.0); Triglycerides 110 mg/dL (<150)
[2024-01-06 10:40] LABS: Estimated Average Glucose 74 mg/dL; Hemoglobin A1C 79.8091 umol/L; Hemoglobin A1c % 4.2 % (<6.0); Total Hemoglobin (HGBA1C) 3588.3995 umol/L
[2024-01-06 10:52] LABS: Prostate Specific Antigen Scr 2.14 ng/mL (<0.05-4.0)
[2024-01-06 10:53] LABS: Creatinine Urine 109.12 mg/dL; Microalbumin Urine < 5.0 mg/L
[2024-01-06 10:56] LABS: Atypical Lymphs Percent Manual 1 % (0-6); Band Neutrophils Percent 0 % (3-5); Basophils Percent Manual 1 % (0-2); Eosinophils Percent Manual 3 % (0-4); Lymphocytes Percent Manual 22 % (20-40); Monocytes Percent Manual 10 % (2-11); Neutrophils Percent Manual 63 % (45-73)
[2024-01-06 10:58] LABS: RBC Morphology NOTED
[2024-01-06 10:59] LABS: Burr Cells 2+ (3-5) /OIF; Large Platelet PRESENT; Platelet Estimate SLIGHTLY DECREASED (NORMAL); Platelet Morphology Comment NOTED; Schistocytes 1+ (0-2) /OIF
[2024-01-06 11:00] LABS: Atypical Lymph Absolute Manual 0.1 x10*3/uL; Basophils Abs Manual 0.1 X10*3/uL (0.0-0.2); Eosinophils Absolute Manual 0.3 X10*3/uL (0.0-0.4); Lymphocytes Absolute Manual 2.5 X10*3/uL (1.2-4.9); Monocytes Absolute Manual 1.1 X10*3/uL (0.1-1.2); Neutrophils Absolute Manual 7.1 X10*3/uL (2.0-8.3); White Blood Count 11.2 X10*3/uL (4.8-10.8)
[2024-01-06 11:01] LABS: Platelet Count 139 X10*3/uL (160-400); TSH reflex Free T4 1.05 uIU/mL (0.32-4.0)
[2024-01-06 11:03] LABS: Lactate Dehydrogenase 304 U/L (118-273)
== END 2024-01-06 08:22 | disposition home or self-care (01) ==
LOC: HO.HMGCLDS 08:21
PROVIDERS: PCP Nurse Practitioner Family; Visit Provider Nurse Practitioner Family
DX: Z00.01 Encounter for general adult medical examination with abnormal findings (principal); E11.9 Type 2 diabetes mellitus without complications; I77.1 Stricture of artery; R79.81 Abnormal blood-gas level; R74.8 Abnormal levels of other serum enzymes; R17 Unspecified jaundice; Z12.5 Encounter for screening for malignant neoplasm of prostate
CPT/HCPCS: 36415; 80053; 80061; 81003; 82043; 82570; 83036; 83615; 84153; 84443; 85007; 85025; 85027; 85045; 96127; 99212; 99396

== ENCOUNTER 2024-03-03 07:33 | Outpatient (AMB) | payer MEDICARE, MEDICAID, SELFPAY ==
--- NOTE | 2024-03-03 07:35 | A.OFFVIS_ITS ---
Vital Signs 03/03/24 07:39 Height 6 ft Weight 187 lb 13.341 oz BMI 25.5 BP 102/62 Blood Pressure Location Lt brachial Position Sitting Pulse 81 Pulse Source Pulse Oximeter Pulse Oximetry (%) 82 L Oxygen Delivery Method Room Air Intake Visit Reasons: Gout/CM APT Intake Note: Patient presents for Gout. Allergies amoxicillin [Amoxicillin] Allergy (Mild, Verified 03/03/24 07:39) rash/hives morphine Allergy (Mild, Verified 03/03/24 07:39) rash HPI Comments Details: Patient is a 58-year-old male with hypertension, type 2 diabetes (well controlled), coronary artery disease/peripheral arterial disease complicated by STEMI and critical atherosclerosis requiring stenting to coronary arteries as well as iliac artery. Here today to for follow-up. Patient 1st evaluated 01/29/2023 with Luann Davalos. At that time he was sent for workup of history of blood clots, rash, locking of fingers, and discoloration to the fingertips and toes, with concerns for an underlying autoimmune disease. Symptoms had been going on for the last 5-10 years and had been concerning him. At that initial evaluation, review of systems was unremarkable for autoimmune disease. Blood work including DORIS, IVIS, RF, CCP, ESR, CRP, and APS labs were all unremarkable. He has been following up with Dermatology for his recurrent rash/sores which is being treated with daily dapsone. Had biopsy which was inconclusive. 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 Today he is here for follow up. Denies photosensitivity, alopecia, oral/nasal ulcers, sicca symptoms, lymphadenopathy, chest pain/shortness of breath, inflammatory type joint pain (has 5-10 minutes of morning stiffness but denies prolonged morning stiffness), foamy urine, lower extremity edema, muscle weakness Also denies history of seizure, CVA, psychosis, history of kidney problems, history of cytopenias History of VTE status post back surgery. No longer on anticoagulation. Currently takes aspirin 81mg Previously told he had Crohn's disease but this was an error in the reading of the colonoscopy. Denies blood or mucus in stool. Denies diarrhea. Denies known/apparent gluten sensitivity Another concern of his is when he gets evaluated via pulse oximetry which shows low oxygen saturations and concern for interstitial lung disease. Had CT scan done which showed no evidence of interstitial lung disease Family history: Mother with rheumatoid arthritis, grandmother with osteoarthritis [facility] Medical History (Updated 03/03/24 @ 09:21 by Chayo Reyes MD) Hypertensive retinopathy of both eyes Bilateral cold feet Locking finger joint History of blood clots Rash and nonspecific skin eruption Uncontrolled diabetes mellitus with hyperglycemia Myocardial infarction On beta clifford at home Supplemental oxygen dependent Right hip pain Mastoiditis Neuropathy Skin cancer Arthralgia Subdural hematoma Depression Hearing loss Anxiety Crohn's disease Diabetes Surgical History History of surgery History of surgery Hx of heart artery stent History of colonoscopy Family History Father Mental illness in member of household Cancer Mother Cancer H/O bilateral mastectomy Arthritis Sister No problems noted. 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 Cognitive needs: No Hearing needs: No Vision needs: No Review of Systems Const Details: Review of Systems Constitutional: Denies fever, chills, weight loss ENT: Denies vision changes, eye pain or eye redness, dental caries, dry mouth GI: Denies nausea, vomiting, diarrhea, abdominal pain, change in BM Pulm: Denies SOB, MACEDO, hemoptysis, wheezing Cards: Denies chest pain, palpitations Skin: Denies nail changes, photosensitivity, HUMAN RESOURCES PROJECT COORDINATOR: Denies headaches, weakness, paresthesias, recurrent falls MSK: as per HPI All other systems reviewed and are unremarkable except noted above Physical Exam Vital Signs: Last Vital Signs Pulse 81 03/03/24 07:39 BP 102/62 03/03/24 07:39 Pulse Ox 82 L 03/03/24 07:39 Oxygen Delivery Method Room Air 03/03/24 07:39 BMI result Body Mass Index 25.5 Physical Examination CONSTITUITIONAL Patient alert and cooperative. Well appearing and in no apparent painful distress HEENT Conjunctiva and sclera clear. ?Pupils equal round and reactive to light. ?No lymphadenopathy. ?Poor dentition. No oral or nasal ulcers noted. CHEST/RESPIRATORY SYSTEM Normal respiratory effort and able to speak in complete sentences. ?Clear to auscultation bilaterally. ?No crackles, rales, rhonchi, wheezes heard. CARDIAC SYSTEM Regular rate and rhythm. ?S1 and S2 heard no murmurs. ?Radial pulses intact bilaterally MSK Hands: ?Good train planner strength bilaterally. Mild Heberden's nodes noted. Finger pads have dusky blue color. Normal nail fold capillaries Wrists: ?Full range of motion at the wrists without pain. ?No tenderness to palpation or synovitis noted to the wrists. Elbows: Full range of motion without pain. No tenderness, weakness, swelling, increased warmth or erythema. Shoulders: Full range of motion without pain. No tenderness, weakness, swelling, increased warmth or erythema. Knees: ?Full range of motion. ?No tenderness, swelling, increased warmth or erythema.?No effusion or crepitations SKIN Scaling and papular rash noted to the anterior surface of bilateral knees. Results Reviewed Results Reviewed: Laboratory Tests 04/20/19 08/28/22 01/29/23 07:45 09:41 09:19 WBC RBC Hgb Hct Plt Count Sodium Potassium Chloride Carbon Dioxide BUN Creatinine Total Bilirubin AST ALT Alkaline Phosphatase Rheumatoid Factor < 15.0 Cycl Citrul Peptide IgG <16 DORIS Screen NEGATIVE SS-A/Ro Antibody <1.0 SS-B/La Antibody <1.0 Sm (Sahni) Antibody <1.0 NEG SM/ELEVATOR INSTALLER APPRENTICE IgG Antibody <1.0 NEG Endomysial IgA Ab Negative Beta-2-GPI IgG Ab <2.0 Beta-2-GPI IgA Ab <2.0 Beta-2-GPI IgM Ab <2.0 Tiss Transglutamin IgG <1.0 Tiss Transglutamin IgA <1.0 Anti-Cardiolipin IgG Ab <2.0 Anti-Cardiolipin IgM Ab <2.0 HLA-B27 Negative 01/06/24 08:25 WBC 11.2 H RBC 4.60 Hgb 14.1 Hct 43.4 Plt Count 139 L Sodium 139 Potassium 4.5 Chloride 108 Carbon Dioxide 26 BUN 16 Creatinine 0.95 Total Bilirubin 2.6 H AST 17 ALT 28 Alkaline Phosphatase 73 Rheumatoid Factor Cycl Citrul Peptide IgG DORIS Screen SS-A/Ro Antibody SS-B/La Antibody Sm (Sahni) Antibody SM/ELEVATOR INSTALLER APPRENTICE IgG Antibody Endomysial IgA Ab Beta-2-GPI IgG Ab Beta-2-GPI IgA Ab Beta-2-GPI IgM Ab Tiss Transglutamin IgG Tiss Transglutamin IgA Anti-Cardiolipin IgG Ab Anti-Cardiolipin IgM Ab HLA-B27 Assessment & Plan Assessment & Plan (1) Raynauds disease: Code(s): I73.00 - Raynaud's syndrome without gangrene Category: Medical Qualifiers: Raynaud?s-associated gangrene presence: without gangrene Qualified Code(s): I73.00 - Raynaud's syndrome without gangrene Plan: #Evaluation for underlying autoimmune disease Patient is here today for follow up evaluation for underlying autoimmune disease At this time there is low suspicion for an underlying autoimmune disease such as lupus, antiphopholipid, scleroderma or Sjogrens disease. His color change to fingers and abnormal oximetry could be related to his known PAD which can be exacerbated by the cold temperatures. Reassuring that this is not related to an underlying autoimmune disease is the normal nailfold capillaries and normal DORIS and IVIS panel. I recommended conservative measures such as keeping warm and dressing warm. If this continues to be a concern his primary can add a calcium channel clifford such as amlodipine or nifedipine. With respect to his rash, I recommended he continue with dermatology. Unsure what the underlying etiology of the rash is at this time but given the normal serologies low suspicion that this is related to an underlying rheumatic cause. I did recommend trialling gluten free diet to see if the rash will respond. With respect to the fingers locking, I discussed that this may be related to overuse and irritation of the pulleys that keep the tendons secured to the fingers in the hand. This in and of itself is not indicative of an autoimmune/rheumatic disease. I advised rest when this occurs. No further blood work needed at this time No follow up appointment needed He can see Rheum prn if anything changes or if there are new concerns Plan I spent 20 minutes reviewing the record and labs, seeing the patient, discussing the treatment plan and documenting in the medical record Coding Level of Care Code Est Pt Level 3 (46106) Diagnoses Raynaud's disease without gangrene I73.00 Raynaud?s-associated gangrene presence: without gangrene
[2024-03-03 07:39] VITALS: BP 102/62; PULSE 81; O2SAT 82; BMI 25.5
== END 2024-03-03 08:41 | disposition home or self-care (01) ==
PROVIDERS: PCP Nurse Practitioner Family; Visit Provider Student in an Organized Health Care Education/Training Program
DX: I73.00 Raynaud's syndrome without gangrene (principal)
CPT/HCPCS: 99213

== ENCOUNTER → 2024-03-03 07:33 | Outpatient (BNVA) | payer MEDICARE, MEDICAID, SELFPAY | PROVIDERS: PCP Nurse Practitioner Family; Visit Provider Student in an Organized Health Care Education/Training Program | DX: I73.00 Raynaud's syndrome without gangrene (principal); R21 Rash and other nonspecific skin eruption; M24.849 Other specific joint derangements of unspecified hand, not elsewhere classified | CPT/HCPCS: 99212 ==

== ENCOUNTER 2024-07-09 09:44 | Outpatient (AMB) | payer MEDICARE, MEDICAID, SELFPAY ==
[2024-07-09 09:48] VITALS: BP 112/70; PULSE 78; O2SAT 97; BMI 25.5
--- NOTE | 2024-07-09 09:48 | MHC.PC.OV ---
Vital Signs 07/09/24 09:48 Height 6 ft Weight 188 lb 6 oz BMI 25.5 BP 112/70 Blood Pressure Location Lt brachial Position Sitting Pulse 78 Pulse Source Pulse Oximeter Pulse Oximetry (%) 97 Oxygen Delivery Method Room Air Intake Visit Reasons: 6 month follow up Allergies amoxicillin [Amoxicillin] Allergy (Mild, Verified 07/09/24 09:48) rash/hives morphine Allergy (Mild, Verified 07/09/24 09:48) rash Medication List - Last Reconciled 07/09/24 by KIMBERLI Starks- aspirin 81 mg PO DAILY atorvastatin 80 mg PO BEDTIME betamethasone dipropionate 0.05% 0.05 appl topical DAILY blood sugar diagnostic (FreeStyle Lite Strips) Use to check fasting blood sugar and random sugar level clonazepam 1 mg PO DAILY dapsone 100 mg PO BID 30 days FreeStyle Juan Luis 2 [place] (flash glucose scanning reader) tid testing NS FreeStyle Juan Luis 2 Sensor (flash glucose sensor) tid testing diabetes NS gabapentin 1 cap in am, 2 caps in pm orally; insulin glargine-yfgn 32 units (0.32 mL) subcut DAILY lancets (FreeStyle Lancets) Use to check fasting blood sugar and random sugar level lisinopril 2.5 mg PO DAILY 90 days metoprolol succinate ER 50 mg PO DAILY mirtazapine 30 mg PO BEDTIME pen needle, diabetic (BD Ultra-Fine Original Pen Needle) Use to inject insulin once a day prazosin 5 mg PO BEDTIME quetiapine 50 mg PO DAILY sertraline 100 mg PO DAILY zolpidem 5 mg PO BEDTIME PRN Tobacco use date assessed: 07/09/24 Dental Screening Dental Screen Date: 07/09/24 Did you have a dental visit in the last 12 months?: Yes Did you have a dental problem in the last 6 months where you did not have access to dental care?: No Was dental information given to patient?: Patient has dentist HPI 6 month follow up HPI Details Chief Complaint Follow-up for diabetes and issues with glucose monitoring. History of Present Illness The patient is a 59-year-old male presenting with follow-up concerns related to diabetes management. His continuous glucose monitor is broken, resulting in infrequent monitoring of his blood sugar levels. The patient reports some nocturnal neuropathy, though he denies additional neuropathy symptoms during the day. His eye examinations are current. There is a need for fasting blood work including an A1c test, which he has yet to complete. Social History Health Maintenance - Resend continuous glucose monitor prescription. - Schedule and complete fasting blood work and A1c test. Review of Systems - Neurological: Reports nocturnal neuropathy, otherwise denies additional symptoms. Physical Exam General: Cooperative, healthy appearing, comfortable, no acute distress and well developed Orientation: Patient oriented x3 Limitations: No limitations Head: Normal to inspection Ears: Hearing grossly normal bilaterally Nose: Normal external nose present Face and sinus: Normal facial exam Eyes: Appearance normal, both eyes and all related structures Neck: Normal visual inspection and Yes full ROM Respiratory: Normal respiratory effort and able to speak in complete sentences. Clear to auscultation bilaterally Cardiovascular: Regular rate and rhythm. Normal S1 and S2 GI: Normal to inspection. Soft to palpation and nontender Skin: No rashes or lesions noted Neuro: Patient oriented x3. Extremities: Normal to inspection. Good sensation with the use of monofilament; feet were intact. Results Plan I will resend the prescription for the patient?s continuous glucose monitor. It is important that the patient completes his fasting blood work and A1c test soon to assess his current glucose control. While monitoring, I will address his neuropathic symptoms as needed and continue his routine eye examinations. Discussion Notes I discussed with the patient the importance of resuming consistent glucose monitoring and scheduling his fasting blood work including the A1c test soon. We reviewed the benefits of accurate glucose monitoring for better diabetes control and avoiding complications such as neuropathy. The patient was informed about the results of his monofilament sensory test, revealing no additional neuropathy concerns beyond current nighttime symptoms. I reiterated the necessity of keeping up with regular eye exams. We agreed on a follow-up visit to review his lab results and adjust his management plan as necessary. Patient Instructions - Get fasting blood work and A1c test completed soon. - Continue routine eye examinations. - Use the new continuous glucose monitor once received. - Report any worsening or new symptoms of neuropathy. [facility] Medical History Hypertensive retinopathy of both eyes Bilateral cold feet Locking finger joint History of blood clots Rash and nonspecific skin eruption Uncontrolled diabetes mellitus with hyperglycemia Myocardial infarction On beta clifford at home Supplemental oxygen dependent Right hip pain Mastoiditis Neuropathy Skin cancer Arthralgia Subdural hematoma Depression Hearing loss Anxiety Crohn's disease Diabetes Surgical History History of surgery History of surgery Hx of heart artery stent History of colonoscopy Family History Father Mental illness in member of household Cancer Mother Cancer H/O bilateral mastectomy Arthritis Sister No problems noted. Paternal Grandfather Prostate cancer Other Hx of autoimmune disorder Social History Housing: 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 1. Little interest or pleasure in doing things: several days 2. Feeling down, depressed, or hopeless: several days 3. Trouble falling or staying asleep, or sleeping too much: several days 4. Feeling tired or having little energy: several days 5. Poor appetite or overeating: not at all 6. Feeling bad about yourself - or that you are a failure or have let yourself or your family down: not at all 7. Trouble concentrating on things, such as reading the newspaper or watching television: not at all 8. Moving or speaking so slowly that other people could have noticed. Or the opposite - being so fidgety or restless that you have been moving around a lot more than usual: not at all 9. Thoughts that you would be better off or of hurting yourself in some way: not at all Total score: 4 Depression Screening Interpretation: Negative Depression Screening Done: Yes [id number] - PHQ-9 Billing: Yes Source: Developed by Drs. Damion Mancilla, Jesica Gomes, Jaylen Pack and colleagues, with an educational rajan from [employer]. Thrive Questionnaire Date Thrive assessed: 07/09/24 I am a: Patient What is your living situation today?: I have a steady place to live Within the past 12 months, did the food you bought not last and you didn't have the money to get more?: Never true Within the past 12 months, did you worry whether your food would run out before you got money to buy more?: Never true Do you have trouble paying for medicines?: Yes Do you have trouble getting transportation to medical appointments?: No Do you have trouble paying your heating and electricity bill?: No Do you have trouble taking care of your child, family member or friend?: No Do you have trouble with day-to-day activities such as bathing, preparing meals, shopping, managing finances, etc.?: No Are you currently unemployed and looking for a job?: No Are you interested in more education?: No Please select the resources that you would like help with: None Currently or been in a relationship where the following occur: No concerns reported THRIVE Score: 0 AUDIT C Alcohol Use Questionnaire (AUDIT-C) 1. How often do you have a drink containing alcohol?: Never 3. How often do you have six or more drinks on one occasion?: Never Total Score: 0 Score Reviewed/Action Taken: Yes GRETTA-7 AMB Questionnaire GRETTA-7 Date GRETTA - 7 assessed: 07/09/24 Feeling nervous, anxious, or on edge: 1 = Several days Not being able to stop or control worryin = Several days Worrying too much about different things: 1 = Several days Trouble relaxin = Several days Being so restless that it is hard to sit still: 0 = Not at all Becoming easily annoyed or irritable: 1 = Several days Feeling afraid as if something awful might happen: 1 = Several days Total GRETTA-7 score (0-4 normal; 5-9 mild; 10-14 moderate; 15-21 severe): 6 Source: Developed by Drs. Damion Mancilla, Jesica Gomes, Jaylen Pack and colleagues, with an educational rajan from [employer]. GRETTA-7 Assessment Billing GRETTA-7 Assessment Tool: GRETTA-7 Assessment 81375 Physical exam (Primary Care) Vital Signs: Last Vital Signs Pulse 78 07/09/24 09:48 BP 112/70 07/09/24 09:48 Pulse Ox 97 07/09/24 09:48 Oxygen Delivery Method Room Air 07/09/24 09:48 BMI result Body Mass Index 25.5 Tobacco/Smoking Status: Tobacco use Status Tobacco use date assessed 07/09/24 07/09/24 09:51 Patient Tobacco Use Status Never used Tobacco 07/09/24 09:51 e-Cigarette/Vaping Use Never Used 07/09/24 09:51 PHQ-9: PHQ-9 Score PHQ-9: Total score 4 07/09/24 09:51 Depression Screening Interpretation: Negative Thrive Assessment: Date of Thrive Assessment Date Thrive assessed 07/09/24 07/09/24 09:51 Currently or been in a relationship where the following occur: No concerns reported Coding Level of Care Code Est Pt Level 3 (46818) Diagnoses Diabetes E11.9 Additional Codes GRETTA-7 Assessment Billing - GRETTA-7 Assessment Tool: GRETTA-7 Assessment [id number] ([id number]) PHQ-9 - 36952 - PHQ-9 Billing: Yes ([id number]) Assessment & Plan Assessment & Plan (1) Diabetes: Code(s): E11.9 - Type 2 diabetes mellitus without complications Category: Medical Plan . Orders: Orders TSH reflex Free T4 Today E11.9 - Type 2 diabetes mellitus without complications Lipid Panel Today E11.9 - Type 2 diabetes mellitus without complications Hemoglobin A1c Today E11.9 - Type 2 diabetes mellitus without complications Complete Blood Count Auto Diff Today E11.9 - Type 2 diabetes mellitus without complications Comprehensive [place]. Panel Fast Today E11.9 - Type 2 diabetes mellitus without complications UA CC w/rflx Micro + Cult Today E11.9 - Type 2 diabetes mellitus without complications Medications: Refilled FreeStyle Juan Luis 2 [place] (flash glucose scanning reader) tid testing 1 ea 0RF NS E11.9 - Type 2 diabetes mellitus without complications FreeStyle Juan Luis 2 Sensor (flash glucose sensor) tid testing diabetes 1 ea 4RF NS E11.9 - Type 2 diabetes mellitus without complications
--- OUTSIDE RECORDS SUMMARY | 2024-07-09 10:58 | XMS_ITS | Continuity of Care Document ---
Author Organization [facility] Address [address] [place] [phone]- Care Team Providers Care Alum Plant Supervisor Name Role Phone Asif VILLELA, Abimael Aburto Primary Care Physician [phone] Encounter [facility] Date(s): 06/05/24 - 07/05/24 [facility] [address] [place] [phone] Encounter Type: Triage Allergies, Adverse Reactions, Alerts Substance Criticality Severity Reaction Reaction Severity Status amoxicillin Active morphine Active Immunizations Given and Recorded Vaccine Date Status Refusal Reason influenza virus vaccine, inactivated 12/18/21 Tito rded influenza virus vaccine, inactivated 04/17/19 Tito rded influenza virus vaccine, inactivated 05/09/15 Give n [id number] bivalent booster vax 12/18/21 Recorded SARS-CoV-2 (COVID-19) mRNA-1273 vaccine 06/25/21 R ecorded SARS-CoV-2 (COVID-19) mRNA-1273 vaccine 11/12/20 R ecorded SARS-CoV-2 (COVID-19) mRNA-1273 vaccine 07/13/20 R ecorded SARS-CoV-2 (COVID-19) mRNA-1273 vaccine 06/15/20 R ecorded pneumococcal 23-valent vaccine 09/28/20 Recorded Medications aspirin 81 mg oral tablet, chewable 81 mg, 1, tablet, By Mouth, Daily, # 30 tablet, Refills 11, Tot. Refills 11, Maintenance, 08/01/22 2:57:00 PM EDT, Route to Pharmacy Electronically, [facility], 182, cm, 06/25/22 11:13:00 EDT,Height, 90, kg, 11/01/21 15:49:00 EDT, Dry Weight Start Date: 08/01/22 Status: Ordered Quantity: 30.0 Unit: tablet Repeat number: 12 atorvastatin 40 mg oral tablet 1 tablet = 40 mg, By Mouth, Daily, # 30 tablet, 0 Refills, Maintenance, 09/12/20 12:26:00 PM EDT, Tablet, [facility] # [facility], Partial fill upon patient request if the prescription is for a schedule II opioid drug. Start Date: 09/12/20 Status: Ordered Quantity: 30.0 Unit: tablet Repeat number: 1 clonazePAM 0.5 mg oral tablet 1 tablet = 0.5 mg, By Mouth, 2 times a day, PRN Anxiety, 0 Refills, Maintenance, 09/05/20 6:11:00 AM EDT, Tablet, Partial fill upon patient request if the prescription is for a schedule II opioid drug. Start Date: 09/05/20 Status: Ordered Repeat number: 1 dapsone 100 mg oral tablet 1 tablet = 100 mg, By Mouth, 2 times a day, # 60 tablet, 0 Refills, Maintenance, 11/02/21 9:28:00 AM EDT, Tablet, Partial fill upon patient request if the prescription is for a schedule II opioid drug. Start Date: 11/02/21 Status: Ordered Quantity: 60.0 Unit: tablet Repeat number: 1 gabapentin 100 mg oral capsule 100 mg, 1, capsule, By Mouth, 3 times a day, # 90 capsule, Refills 0, Maintenance, 09/05/20 6:11:00 AM EDT, Partial fill upon patient request if the prescription is for a schedule II opioid drug. Start Date: 09/05/20 Status: Ordered Quantity: 90.0 Unit: capsule Repeat number: 1 Lantus Solostar Pen 100 units/mL subcutaneous solution = 10 units, Subcutaneous Injection, Daily at bedtime, # 10 mL, 0 Refills, Maintenance, 09/06/20 11:23:00 AM EDT, Solution, [facility], Partial fill upon patient request if the prescription is for a schedule II opioid drug. Start Date: 09/06/20 Status: Ordered Quantity: 10.0 Unit: mL Repeat number: 1 metoprolol 50 mg oral tablet, extended release 50 mg, 1, tablet, By Mouth, Daily, # 90 tablet, Refills 11, Tot. Refills 11, Maintenance, 08/23/23 10:10:00 AM EDT, Route to Pharmacy Electronically, [facility] # [facility], 182, cm, 07/03/23 13:21:00 EDT, Height, 90, kg, 11/01/21 15:49:00 EDT, Dry Weight Start Date: 08/23/23 Status: Ordered Quantity: 90.0 Unit: tablet Repeat number: 12 MiraLax oral powder for reconstitution = 17 Gm, By Mouth, Daily, # 238 Gm, 0 Refills, Acute 04/01/25 12:00:00 PM EST, 07/02/24 9:37:00 AM EDT,REC Powder, [facility] # [facility], Partial fill upon patient request if the prescription is for a schedule II opioid drug., 17 Gm By Mouth Daily, 182, cm, 07/02/24 8:52:00 EDT, Height Start Date: 07/02/24 Stop Date: 04/01/25 Status: Ordered Quantity: 238.0 Unit: g Repeat number: 1 Indication: Constipation, unspecified mirtazapine 30 mg oral tablet 1 tablet = 30 mg, By Mouth, Daily at bedtime, # 30 tablet, 0 Refills, Maintenance, 09/05/20 6:11:00 AM EDT, Tablet, Partial fill upon patient request if the prescription is for a schedule II opioid drug. Start Date: 09/05/20 Status: Ordered Quantity: 30.0 Unit: tablet Repeat number: 1 omeprazole 20 mg oral enteric coated capsule 1 capsule = 20 mg, By Mouth, Daily, # 56 capsule, 0 Refills, Maintenance, 07/02/24 9:37:00 AM EDT, ECCapsule, [facility] # [facility], Partial fill upon patient request if the prescription is for a schedule II opioid drug., 182, cm, 07/02/24 8:52:00 EDT, Height Start Date: 07/02/24 Status: Ordered Quantity: 56.0 Unit: capsule Repeat number: 1 Indication: Gastro-esophageal reflux disease without esophagitis prazosin 5 mg oral capsule 5 mg, 1, capsule, By Mouth, Daily at bedtime, Refills 0, Maintenance, 09/05/20 6:12:00 AM EDT, Partial fill upon patient request if the prescription is for a schedule II opioid drug. Start Date: 09/05/20 Status: Ordered Repeat number: 1 QUEtiapine 50 mg oral tablet 1 tablet = 50 mg, By Mouth, Daily, # 30 tablet, 0 Refills, Maintenance, 09/05/20 6:12:00 AM EDT, Tablet, Partial fill upon patient request if the prescription is for a schedule II opioid drug. Start Date: 09/05/20 Status: Ordered Quantity: 30.0 Unit: tablet Repeat number: 1 sertraline 100 mg oral tablet 1 tablet = 100 mg, By Mouth, Daily, # 30 tablet, 0 Refills, Maintenance, 05/09/15 11:33:23 AM EST Start Date: 05/09/15 Status: Ordered Quantity: 30.0 Unit: tablet Repeat number: 1 Zetia 10 mg oral tablet 1 tablet = 10 mg, By Mouth, Daily, # 30 tablet, 4 Refills, Maintenance, 06/05/24 2:18:00 PM EST, Tablet, [facility], Partial fill upon patient request if the prescription is for a schedule II opioid drug., 182, cm, 04/11/24 7:36:00 EST, Height Start Date: 06/05/24 Status: Ordered Quantity: 30.0 Unit: tablet Repeat number: 5 Problem List Condition Confirmation Course Effective Dates Status H ealth Status Informant Crohn's disease Confirmed Active Hyperlipidemia Confirmed Active Anxiety and depression Confirmed Active Neuropathy Confirmed Active PVD (peripheral vascular disease) Confirmed Active Type 2 diabetes mellitus Confirmed Active Social History Social History Type Response Smoking Status Never (less than 100 in lifetime);Never entered on: 09/05/20 Sex Sex Representation Male (finding) Patient Care team information Care Team Personnel Name: Abimael Gold NP Position: Reference Physician Member Role: PCP Address: [address] [place] [address] Telecom: Name: Gloria Givens RN Position: S RN Member Role: Primary Care Nurse Name: Sherri Tobin RN Position: S RN Member Role: Primary Care Nurse Name: Comfort Yi RN Position: S RN Member Role: Primary Care Nurse Name: Susan Pillai LPN Position: S RN Member Role: Primary Care Nurse Care Team Related Persons Name: KEVIN ROSE Name: LUIS MIGUEL ROSE Insurance Providers Guarantor name: CALLUM Health Plan Information #: 1 Payer: MEDICARE PART B OUTPT Member Number: NA Policy Number: NA Group Number: NA Health Plan Information #: 2 Payer: [facility] Member Number: NA Policy Number: NA Group Number: NA
--- OUTSIDE RECORDS SUMMARY | 2024-07-09 10:58 | XMS_ITS | Clinical Summary ---
Author Organization [facility] Business [facility] Address [address] [place] [address] Care Team Providers Care Risk Advisor Name Role Phone Abimael Gold NP Primary Care Provider Social History Tobacco Use Types Packs/Day Years Used Date Smoking Tobacco: Never Smokeless Tobacco: Never Alcohol Use Standard Drinks/Week Comments Never 0 (1 standard drink = 0.6 oz pur e alcohol) Sex and Gender Information Value Date Recorded Sex Assigned at Male 10/25/2021 3:41 PM EDT Legal Sex Male 3:34 PM EDT Gender Identity Male 10/25/2021 3:41 PM EDT Sexual Orientation Not on file Obstetrics History Last Filed Vital Signs Vital Sign Reading Time Taken Comments Blood Pressure - - Pulse - - Temperature - - Respiratory Rate - - Oxygen Saturation - - Inhaled Oxygen Concentration - - Weight 87.7 kg (193 lb 6.4 oz) 01/09/2023 8:28 A M EDT Height 182.9 cm (6') 10/26/2021 2:45 PM EDT Body Mass Index 26.23 10/26/2021 2:45 PM EDT Plan of Treatment Health Maintenance Due Date Last Done Comments DTaP,Tdap,and Td Vaccines (1 - Tdap) 1985 Hepatitis B Vaccines (1 of 3 - 19+ 3-dose series) 1985 Pneumococcal Vaccine: 50+ Ye ars (1 of 1 - PCV) 2016 Zoster Vaccines (1 of 2) 2016 Cholesterol Screening (Lipid Panel) 10/25/2021 Colorectal Cancer Screening: Colonoscopy 10/25/2021 Depression Screening 10/25/2021 HIV Screening 10/25/2021 Hepatitis C Screening 10/25/2021 Social Influencers of Health Screening 10/25/2021 COVID-19 Vaccine (1 - 2023-2 5 season) 2023 Influenza Vaccine (Season Ended) 2024 HIB Vaccines Aged Out No longer eligi ble based on patient's age to complete this topic HPV Vaccines Aged Out No longer eligi ble based on patient's age to complete this topic Hepatitis A Vaccines Aged Out No long er eligible based on patient's age to complete this topic IPV Vaccines Aged Out No longer eligi ble based on patient's age to complete this topic MMR Vaccines Aged Out No longer eligi ble based on patient's age to complete this topic Meningococcal ACWY Vaccine Aged Out N o longer eligible based on patient's age to complete this topic Meningococcal B Vaccine Aged Out No l onger eligible based on patient's age to complete this topic Pneumococcal Vaccine: Pediat rics (0 to 5 Years) and At-Risk Patients (6 to 64 Years) Aged Out No longer eligible b ased on patient's age to complete this topic RSV Immunization Patients Un oxana 20 months Aged Out No longer eligible b ased on patient's age to complete this topic Varicella Vaccines Aged Out No longer eligible based on patient's age to complete this topic Care Teams Risk Advisor Relationship Specialty Start Date End Date Abimael Gold NP [address] [facility] KEVEN Broussard PCP - General 07/11/21
--- OUTSIDE RECORDS SUMMARY | 2024-07-09 10:58 | XMS_ITS | Continuity of Care Document ---
Author Organization [facility] Address [address] [place] [phone]- Care Team Providers Care Oracle Distribution Consultant Name Role Phone Asif VILLELA, Abimael Aburto Primary Care Physician Encounter [facility] Date(s): 05/27/24 - 07/03/24 [facility] [address] [place] [address]- Attending Physician: Isidro Huynh MD Admitting Physician: Isidro Huynh MD Referring Physician: Abimael Gold NP Encounter Type: Pre-OutPatient One Time Allergies, Adverse Reactions, Alerts Substance Criticality Severity Reaction Reaction Severity Status amoxicillin Active morphine Active Immunizations Given and Recorded Vaccine Date Status Refusal Reason influenza virus vaccine, inactivated 12/18/21 Tito rded influenza virus vaccine, inactivated 04/17/19 Tito rded influenza virus vaccine, inactivated 05/09/15 Give n [id number] bivalent booster vax 12/18/21 Recorded SARS-CoV-2 (COVID-19) [...] PM EDT, Route to Pharmacy Electronically, [facility], 182, cm, 06/25/22 11:13:00 EDT,Height, 90, kg, 11/01/21 15:49:00 EDT, Dry Weight Start Date: 08/01/22 Status: Ordered Quantity: 30.0 Unit: tablet Repeat number: 12 atorvastatin 40 mg oral tablet 1 tablet = 40 mg, By Mouth, Daily, # 30 tablet, 0 Refills, Maintenance, 09/12/20 12:26:00 PM EDT, Tablet, [facility], Partial [...] 10:10:00 AM EDT, Route to Pharmacy Electronically, [facility] # [facility], 182, cm, 07/03/23 13:21:00 EDT, Height, 90, kg, 11/01/21 15:49:00 EDT, Dry Weight Start Date: 08/23/23 Status: Ordered Quantity: 90.0 Unit: tablet Repeat number: 12 MiraLax oral powder for reconstitution = 17 Gm, By Mouth, Daily, # 238 Gm, 0 Refills, Acute 04/01/25 12:00:00 PM EST, 07/02/24 9:37:00 AM EDT,REC Powder, [facility] # [facility], Partial fill upon patient [...] Refills, Maintenance, 07/02/24 9:37:00 AM EDT, ECCapsule, [facility] # 50, Partial fill upon patient [...] Position: Reference Physician Member Role: PCP Address: [address] [place] [address]- Telecom: Name: Gloria Givens RN Position: S [...] Payer: MEDICARE PART B OUTPT Member Number: [id number] Policy Number: CALLUM Group Number: CALLUM Health Plan Information #: 2 Payer: [facility] Member Number: [id number] Policy Number: CALLUM Group Number: NA
== END 2024-07-09 10:31 | disposition home or self-care (01) ==
LOC: HO.HMCC 09:45
PROVIDERS: PCP Nurse Practitioner Family; Visit Provider Nurse Practitioner Family
DX: E11.9 Type 2 diabetes mellitus without complications (principal)

== ENCOUNTER → 2024-07-09 09:44 | Outpatient (BNVA) | payer MEDICARE, MEDICAID, SELFPAY | PROVIDERS: PCP Nurse Practitioner Family; Visit Provider Nurse Practitioner Family | DX: E11.9 Type 2 diabetes mellitus without complications (principal) | CPT/HCPCS: 96127; 99212 ==

== ENCOUNTER 2024-11-18 07:59 | Outpatient (AMB) | payer MEDICARE, MEDICAID, SELFPAY ==
--- OUTSIDE RECORDS SUMMARY | 2024-11-18 08:02 | XMS_ITS | Clinical Summary ---
Author Organization [facility] Address [address] [place] [address] Care Team Providers Care Breeder Hen Service Technician Name Role Phone Abimael Gold NP Primary [...] Panel) 10/25/2021 Colorectal Cancer Screening: Colonoscopy 10/25/2021 HIV Screening 10/25/2021 Hepatitis C Screening 10/25/2021 Social Influencers of Health Screening 10/25/2021 COVID-19 Vaccine (1 - 2023-2 5 season) 2023 Depression Screening 04/01/2024 Influenza Vaccine (#1) 2024 HIB Vaccines Aged Out No longer [...] age to complete this topic Care Teams Breeder Hen Service Technician Relationship Specialty Start Date End Date Abimael Gold NP [address] [facility] KEVEN Broussard PCP - General 07/11/21
--- NOTE | 2024-11-18 08:07 | MHC.OFFWIV ---
Intake Vital Signs 11/18/24 08:08 Height 6 ft Weight 184 lb 8 oz BMI 25.0 BP 142/80 H Blood Pressure Location Lt brachial Position Sitting Pulse 90 Pulse Source Pulse Oximeter Temp 98.2 F Temp Source Oral Intake Visit Reasons: EP-b/l ears block Patient Tobacco Use Status: Never used Tobacco Functional Mental Disability Teacher Required: No Allergies amoxicillin (Amoxicillin) Allergy (Mild, Verified 11/18/24 08:11) rash/hives morphine Allergy (Mild, Verified 11/18/24 08:11) rash Do you need a note to return to daycare/school/sports/work: No HPI HPI Comments History of Present Illness Details History - The patient is a 59-year-old male presenting with right ear pain. - The ear blockage started bothering the patient yesterday and worsened over time. - He has muffled hearing on the right and hears like a humming noise. - The patient attempted to alleviate the blockage using a Q-tip, which was ineffective. - The patient reports no associated symptoms such as sore throat, headache, or fever. - The patient has a history of recurrent skin rash, which occurs annually and is associated with his work at the [employer]. - He has a dermatoloist that gives him a cream for his ears as he has break outs on the ears. - He denies SIMON, dizziness, discharge, or cold symptoms. Physical Exam General: Cooperative, healthy appearing, comfortable, no acute distress and well developed Head: Normal to inspection Ears: External ears normal bilaterally. No tragus or mastoid tenderness noted on the left. Tragus tenderness noted on the right. Cerumen noted in the right canal. TM's not visualized on the right. Face and sinus: Normal facial exam. No TTP of the sinuses. Neck: Normal visual inspection. Full ROM. No lymphadenopathy noted. Respiratory: Normal respiratory effort and able to speak in complete sentences. Clear to auscultation bilaterally. No w/r/r noted. Cardiac: RRR, no m/r/g noted. Normal S1 and S2 noted. Skin: No rashes or lesions noted, but patient reports a recurring skin issue related to work at the [employer]. Neuro: Patient oriented x3 Patient was informed and verbally consented to the use of an ambient scribe for clinic note documentation during this visit. [facility] Medical History Hypertensive retinopathy of both eyes Bilateral cold feet Locking finger joint History of blood clots Rash and nonspecific skin eruption Uncontrolled diabetes mellitus with hyperglycemia Myocardial infarction On beta clifford at home Supplemental oxygen dependent Right hip pain Mastoiditis Neuropathy Skin cancer Arthralgia Subdural hematoma Depression Hearing loss Anxiety Crohn's disease Diabetes Surgical History History of surgery History of surgery Hx of heart artery stent History of colonoscopy Family History Father Mental illness in member of household Cancer Mother Cancer H/O bilateral mastectomy Arthritis Sister No problems noted. 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 ) [id number] Irrigation/Lavage Assessment & Plan Assessment & Plan (1) Right ear pain: Code(s): H92.01 - Otalgia, right ear Plan Most likely OM vs OE vs ccerumen impaction Plan - Plan to flush the right ear to remove impacted cerumen. - Will treat for an OE due to the swelling noted in the right ear canal. - Drops will be sent to the pharmacy to knot picker cloth - Pt has f/u with his PCP next week - If his pain has not resolved, advised irrigation to the ear Orders: Orders AMB Cerumen Removal Today H61.23 - Impacted cerumen, bilateral Medications: New [id number] 3.5-10,000-1 mg/mL-unit/mL-% 4 drps otic (ear) right Q8H 10 mL 0RF 10 days Coding Level of Care Code Est Pt Level 3 (58178) Diagnoses Right ear pain H92.01 CPT Codes Office Procedure - CPT: 75733-Hek Irrigation/Lavage ([id number])
[2024-11-18 08:08] VITALS: BP 142/80; PULSE 90; TEMP 36.8; BMI 25.0
== END 2024-11-18 09:14 | disposition home or self-care (01) ==
PROVIDERS: PCP Nurse Practitioner Family; Visit Provider Physician Assistant Medical
DX: H92.01 Otalgia, right ear (principal); H61.21 Impacted cerumen, right ear

== ENCOUNTER → 2024-11-18 07:59 | Outpatient (BNVA) | payer MEDICARE, MEDICAID, SELFPAY | PROVIDERS: PCP Nurse Practitioner Family; Visit Provider Physician Assistant Medical | DX: H92.01 Otalgia, right ear (principal); H61.21 Impacted cerumen, right ear | CPT/HCPCS: 69209; 99212 ==

== ENCOUNTER 2024-11-23 10:00 | Outpatient (AMB) | payer MEDICARE, MEDICAID, SELFPAY ==
--- NOTE | 2024-11-23 10:04 | A.OFFPC_ITS ---
Vital Signs 11/23/24 10:05 Height 6 ft Weight 181 lb BMI 24.5 BP 102/62 Blood Pressure Location Lt brachial Position Sitting Respiration 16 Pulse 62 Pulse Source Pulse Oximeter Temp 98.2 F Temp Source Oral Pulse Oximetry (%) 82 L Oxygen Delivery Method Room Air Intake Visit Reasons: 4 month follow up Allergies amoxicillin (Amoxicillin) Allergy (Mild, Verified 11/23/24 10:44) rash/hives morphine Allergy (Mild, Verified 11/23/24 10:44) rash Medication List - Last Reconciled 11/23/24 by Abimael Gold, [facility]- aspirin 81 mg PO DAILY atorvastatin 80 mg PO BEDTIME betamethasone dipropionate 0.05% 0.05 appl topical DAILY blood sugar diagnostic (FreeStyle Lite Strips) Use to check fasting blood sugar and random sugar level clonazepam 1 mg PO DAILY dapsone 100 mg PO BID 30 days FreeStyle Juan Luis 2 [place] (flash glucose scanning reader) tid testing NS FreeStyle Juan Luis 2 Sensor (flash glucose sensor) tid testing diabetes NS gabapentin 1 cap in am, 2 caps in pm orally; insulin glargine-yfgn 32 units (0.32 mL) subcut DAILY lancets (FreeStyle Lancets) Use to check fasting blood sugar and random sugar level lisinopril 2.5 mg PO DAILY 90 days metoprolol succinate ER 50 mg PO DAILY mirtazapine 30 mg PO BEDTIME [id number]-bftemnnkc-QQ 3.5-10,000-1 mg/mL-unit/mL-% 4 drps otic (ear) right Q8H 10 days pen needle, diabetic Use to inject insulin once a day prazosin 5 mg PO BEDTIME quetiapine 50 mg PO DAILY sertraline 100 mg PO DAILY zolpidem 5 mg PO BEDTIME PRN Tobacco use date assessed: 07/09/24 Dental Screening Dental Screen Date: 07/09/24 HPI 4 month follow up HPI Details Chief Complaint The patient presents for a follow-up regarding diabetes management. History of Present Illness The patient is a 59-year-old male presenting with a follow-up for diabetes management. He denies experiencing neuropathy, polydipsia, or polyuria, indicating stable symptom control. Previously, the patient was utilizing glucose sensors effectively, but due to supply issues from the pharmacy, he has discontinued their use. Efforts are being made to acquire more sensors as they were beneficial for his glucose monitoring. The patient is currently on insulin therapy, administering 32 units of Lantus. He is scheduled for laboratory tests tomorrow, which will include an A1c and microalbumin assessment. His eye examination is up to date, and neurological assessment with monofilament testing shows positive sensation. Social History Health Maintenance - Eye examination is up to date Review of Systems - Neurological: Denies neuropathy - Endocrine: Denies polydipsia, polyuria Physical Exam General: Cooperative, healthy appearing, comfortable, no acute distress and well developed Orientation: Patient oriented x3 Limitations: No limitations Head: Normal to inspection Ears: Hearing grossly normal bilaterally Nose: Normal external nose present Face and sinus: Normal facial exam Eyes: Appearance normal, both eyes and all related structures Neck: Normal visual inspection and Yes full ROM Respiratory: Lungs are fairly clear bilat Cardiovascular: Regular rate and rhythm. Positive sensation with use of monofilament S1 S2 GI: Normal to inspection. Soft to palpation and nontender Skin: No rashes or lesions noted, blueish hew to toes bilat Neuro: Patient oriented x3 Extremities: Normal to inspection Results Plan The patient will continue with his current insulin regimen of 32 units of Lantus. Efforts will be made to resolve the supply issue with glucose sensors to resume their use for effective glucose monitoring. Laboratory tests, including A1c and microalbumin, are scheduled for tomorrow to assess diabetes control and kidney function. pt has seen vascular in the past [facility] Medical History Hypertensive retinopathy of both eyes Bilateral cold feet Locking finger joint History of blood clots Rash and nonspecific skin eruption Uncontrolled diabetes mellitus with hyperglycemia Myocardial infarction On beta clifford at home Supplemental oxygen dependent Right hip pain Mastoiditis Neuropathy Skin cancer Arthralgia Subdural hematoma Depression Hearing loss Anxiety Crohn's disease Diabetes Surgical History History of surgery History of surgery Hx of heart artery stent History of colonoscopy Family History Father Mental illness in member of household Cancer Mother Cancer H/O bilateral mastectomy Arthritis Sister No problems noted. 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 Cognitive needs: No Hearing needs: No Vision needs: No Questionnaire Thrive Questionnaire Date Thrive assessed: 07/09/24 I am a: Patient What is your living situation today?: I have a steady place to live Within the past 12 months, did the food you bought not last and you didn't have the money to get more?: Never true Within the past 12 months, did you worry whether your food would run out before you got money to buy more?: Never true Do you have trouble paying for medicines?: Yes Do you have trouble getting transportation to medical appointments?: No Do you have trouble paying your heating and electricity bill?: No Do you have trouble taking care of your child, family member or friend?: No Do you have trouble with day-to-day activities such as bathing, preparing meals, shopping, managing finances, etc.?: No Are you currently unemployed and looking for a job?: No Are you interested in more education?: No Please select the resources that you would like help with: None Currently or been in a relationship where the following occur: No concerns reported THRIVE Score: 0 GRETTA-7 AMB Questionnaire GRETTA-7 Date GRETTA - 7 assessed: 07/09/24 Source: Developed by Drs. Damion Mancilla, Jesica Gomes, Jaylen Pack and colleagues, with an educational rajan from [employer]. Physical exam (Primary Care) Vital Signs: Last Vital Signs Temp 98.2 F 11/23/24 10:05 Pulse 62 11/23/24 10:05 Resp 16 11/23/24 10:05 BP 102/62 11/23/24 10:05 Pulse Ox 82 L 11/23/24 10:05 Oxygen Delivery Method Room Air 11/23/24 10:05 BMI result Body Mass Index 24.5 Tobacco/Smoking Status: Tobacco use Status Tobacco use date assessed 07/09/24 11/23/24 10:10 Patient Tobacco Use Status Never used Tobacco 11/23/24 10:10 e-Cigarette/Vaping Use Never Used 11/23/24 10:10 Thrive Assessment: Date of Thrive Assessment Date Thrive assessed 07/09/24 11/23/24 10:10 Currently or been in a relationship where the following occur: No concerns reported Coding Level of Care Code Est Pt Level 3 (73194) Diagnoses Diabetes E11.9 Screening PSA (prostate specific antigen) Z12.5 Assessment & Plan Assessment & Plan (1) Diabetes: Code(s): E11.9 - Type 2 diabetes mellitus without complications Category: Medical (2) Screening PSA (prostate specific antigen): Code(s): Z12.5 - Encounter for screening for malignant neoplasm of prostate Category: Medical Plan . Orders: Orders UA CC w/rflx Micro + Cult Today E11.9 - Type 2 diabetes mellitus without complications Lipid Panel Today E11.9 - Type 2 diabetes mellitus without complications Prostate Specific Antigen Scr Today Z12.5 - Encounter for screening for malignant neoplasm of prostate Complete Blood Count Auto Diff Today E11.9 - Type 2 diabetes mellitus without complications Comprehensive [place]. Panel Fast Today E11.9 - Type 2 diabetes mellitus without complications TSH reflex Free T4 Today E11.9 - Type 2 diabetes mellitus without complications Hemoglobin A1c Today E11.9 - Type 2 diabetes mellitus without complications Microalbumin, Random (w Creat) Today E11.9 - Type 2 diabetes mellitus without complications Medications: Refilled FreeStyle Juan Luis 2 Sensor (flash glucose sensor) tid testing diabetes 1 ea 4RF NS E11.9 - Type 2 diabetes mellitus without complications
[2024-11-23 10:05] VITALS: BP 102/62; PULSE 62; RESP 16; TEMP 36.8; O2SAT 82; BMI 24.5
--- OUTSIDE RECORDS SUMMARY | 2024-11-23 11:00 | XMS_ITS | Clinical Summary ---
Author Organization [facility] [place] Address [address] [place] [address] Care Team Providers Care Roof Assembler Name Role Phone Abimael Gold NP Primary Care Provider [phone] Social History Tobacco Use Types Packs/Day Years [...] age to complete this topic Care Teams Roof Assembler Relationship Specialty Start Date End Date Abimael Gold NP [address] [facility] KEVEN Broussard PCP - General 07/11/21
== END 2024-11-23 12:22 | disposition home or self-care (01) ==
LOC: HO.HMCC 10:01
PROVIDERS: PCP Nurse Practitioner Family; Visit Provider Nurse Practitioner Family
DX: E11.9 Type 2 diabetes mellitus without complications (principal); Z12.5 Encounter for screening for malignant neoplasm of prostate

== ENCOUNTER → 2024-11-23 10:00 | Outpatient (BNVA) | payer MEDICARE, MEDICAID, SELFPAY | PROVIDERS: PCP Nurse Practitioner Family; Visit Provider Nurse Practitioner Family | DX: E11.9 Type 2 diabetes mellitus without complications (principal) | CPT/HCPCS: 99212 ==

== ENCOUNTER 2025-02-01 06:48 | Outpatient (REF) | payer MEDICARE, MEDICAID, SELFPAY ==
--- OUTSIDE RECORDS SUMMARY | 2025-02-01 06:51 | XMS_ITS | Clinical Summary ---
Author Organization Patient Business Ser [facility] [place] Address [address] [place] [address] Care Team Providers Care Sql Application Developer Name Role Phone Abimael Gold NP Primary [...] Health Maintenance Due Date Last Done Comments Colorectal Cancer Screening: Colonoscopy 1966 DTaP,Tdap,and Td Vaccines (1 - Tdap) 1985 Hepatitis B Vaccines (1 of 3 - 19+ 3-dose series) 1985 Pneumococcal Vaccine: 50+ Ye ars (1 of 1 - PCV) 2016 Zoster Vaccines (1 of 2) 2016 Cholesterol Screening (Lipid Panel) 10/25/2021 HIV Screening 10/25/2021 Hepatitis C Screening 10/25/2021 Social Influencers of Health Screening 10/25/2021 Depression Screening 04/01/2024 COVID-19 Vaccine (1 - 2023-2 5 season) 2024 Influenza Vaccine (#1) 2024 RSV Immunization Adult Patie nts (1 - 1-dose 75+ series) 2041 HIB Vaccines Aged Out No longer eligi [...] age to complete this topic Care Teams Sql Application Developer Relationship Specialty Start Date End Date Abimael Gold NP [address] [facility] KEVEN Broussard PCP - General 07/11/21
[2025-02-01 10:51] LABS: Hematocrit 45.1 % (42.0-52.0); Hemoglobin 14.0 g/dl (14.0-18.0); Mean Corpuscular HGB Conc 31.0 g/dl (31.0-36.0); Mean Corpuscular Hemoglobin 29.9 pg (27.0-33.0); Mean Corpuscular Volume 96.4 fL (80.0-98.0); NRBC Abs Auto 0.000 X10*3/uL (0.0-0.012); NRBC Pct Auto 0.0 /100WBC (0.0-0.2); Platelet Count 145 X10*3/uL (160-400); Red Blood Count 4.68 X10*6/uL (4.60-5.80)
[2025-02-01 10:52] LABS: WBC ABN SCTR FOR CBC 1; White Blood Count 12.0 X10*3/uL (4.8-10.8)
[2025-02-01 10:57] LABS: Appearance Urine Turbid; Glucose Urine UA Negative (Negative); PH 5.5 (5.0-9.0); Specific Gravity - Urine 1.025 (1.005-1.025); UMIC TRIGGER UACC YES
[2025-02-01 11:14] LABS: Microalbum/Creatinine Ratio Ur 3.2 ug/mg cr (<30)
[2025-02-01 11:19] LABS: Alanine Aminotransferase 31 U/L (0-40); Albumin Level 4.6 g/dL (3.5-5.0); Alkaline Phosphatase 67 U/L (39-117); Anion Gap 9 (12-20); Aspartate Amino Transferase 26 U/L (5-37); Blood Urea Nitrogen 20 mg/dL (9-16); Calcium 8.7 mg/dL (8.4-10.2); Carbon Dioxide 30 mmol/L (22-29); Chloride 106 mmol/L (96-108); Cholesterol 99 mg/dL (<200); Estimated Glomerular Filt Rate > 60; HDL Cholesterol 32 mg/dL (>40); Potassium 4.2 mmol/L (3.3-5.1); Sodium 141 mmol/L (135-145); Total Protein 7.5 g/dL (6.5-8.0); Triglycerides 155 mg/dL (<150)
[2025-02-01 11:29] LABS: Hemoglobin A1C 102.6479 umol/L
[2025-02-01 12:01] LABS: Atypical Lymph Absolute Manual 0.5 x10*3/uL; Atypical Lymphs Percent Manual 4 % (0-6); Band Neutrophils Percent 0 % (3-5); Basophils Abs Manual 0.1 X10*3/uL (0.0-0.2); Basophils Percent Manual 1 % (0-2); Eosinophils Absolute Manual 0.6 X10*3/uL (0.0-0.4); Eosinophils Percent Manual 5 % (0-4); Lymphocytes Absolute Manual 2.0 X10*3/uL (1.2-4.9); Lymphocytes Percent Manual 17 % (20-40); Monocytes Absolute Manual 1.2 X10*3/uL (0.1-1.2); Monocytes Percent Manual 10 % (2-11); Neutrophils Absolute Manual 7.6 X10*3/uL (2.0-8.3); Neutrophils Percent Manual 63 % (45-73)
[2025-02-01 12:02] LABS: RBC Morphology NOTED
[2025-02-01 12:03] LABS: Acanthocytes 1+ (0-2) /OIF; Large Platelet PRESENT; Spherocytes 1+ (0-2) /OIF
[2025-02-01 12:04] LABS: Burr Cells 2+ (3-5) /OIF
== END 2025-02-01 06:49 | disposition home or self-care (01) ==
LOC: HO.HMGCLDS 06:48
PROVIDERS: PCP Nurse Practitioner Family; Visit Provider Nurse Practitioner Family
DX: E11.9 Type 2 diabetes mellitus without complications (principal); Z12.5 Encounter for screening for malignant neoplasm of prostate
CPT/HCPCS: 36415; 80053; 80061; 81001; 82043; 82570; 83036; 84153; 84443; 85007; 85027

== ENCOUNTER 2025-02-09 09:02 | Outpatient (AMB) | payer MEDICARE, MEDICAID, SELFPAY ==
--- NOTE | 2025-02-09 09:12 | A.OFFPC_ITS ---
Vital Signs 02/09/25 09:14 Height 6 ft Weight 191 lb BMI 25.9 BP 120/82 Pulse 86 Pulse Source Pulse Oximeter Intake Visit Reasons: PE - see comments Fuel Technician Required: No Allergies amoxicillin (Amoxicillin) Allergy (Mild, Verified 02/09/25 09:16) rash/hives morphine Allergy (Mild, Verified 02/09/25 09:16) rash Medication List - Last Reconciled 02/09/25 by CINTHIA StarksP- aspirin 81 mg PO DAILY atorvastatin 80 mg PO BEDTIME betamethasone dipropionate 0.05% 0.05 appl topical DAILY blood sugar diagnostic (FreeStyle Lite Strips) Use to check fasting blood sugar and random sugar level clonazepam 1 mg PO DAILY dapsone 100 mg PO BID 30 days FreeStyle Juan Luis 2 [place] (flash glucose scanning reader) tid testing NS FreeStyle Juan Luis 2 Sensor (flash glucose sensor) tid testing diabetes NS gabapentin 1 cap in am, 2 caps in pm orally; insulin glargine-yfgn 32 units (0.32 mL) subcut DAILY lancets (FreeStyle Lancets) Use to check fasting blood sugar and random sugar level lisinopril 2.5 mg PO DAILY 90 days metoprolol succinate ER 50 mg PO DAILY mirtazapine 30 mg PO BEDTIME [id number]-wqhyjwomq-MS 3.5-10,000-1 mg/mL-unit/mL-% 4 drps otic (ear) right Q8H 10 days pen needle, diabetic Use to inject insulin once a day prazosin 5 mg PO BEDTIME quetiapine 50 mg PO DAILY sertraline 100 mg PO DAILY zolpidem 5 mg PO BEDTIME PRN Tobacco use date assessed: 02/09/25 Dental Screening Dental Screen Date: 07/09/24 HPI PE - see comments HPI Details History of Present Illness The patient is a 59-year-old male presenting for a physical exam. He is a diabetic with a recent A1c of 4.7. He experiences some intermittent neuropathy with colder feet and has seen a vascular specialist in the past. His medical history is significant for a prior myocardial infarction, for which he sees a twisting frame changer annually. He also follows up with a urologist. His colon cancer screening is up to date. His bilirubin has been noted to be elevated in the past and fluctuates. He has previously seen a mechanical maintenance engineer for this issue. Imaging in the past has shown some hepatic steatosis and splenomegaly. He has ongoing leukocytosis and thrombocytopenia. Health Maintenance - He sees a twisting frame changer once a year for a previous myocardial infarction. - He sees a urologist. - Colon cancer screening is up to date. Social History Review of Systems - Neurological: Reports intermittent pablito ropathy with colder feet. - Constitutional: Denies fever or chills . - Gastrointestinal: Denies nausea or vom iting. - Cardiovascular: Denies chest pain. - Respiratory: Denies shortness of breat h. - Genitourinary: Denies urinary issues. - Psychiatric: Denies suicidal or homici mel ideation. Physical Exam General: Cooperative, healthy appearing, comfortable, no acute distress and well developed Orientation: Patient oriented x3 Limitations: No limitations Head: Normal to inspection Ears: Hearing grossly normal bilaterally Nose: Normal external nose present Face and sinus: Normal facial exam Eyes: Appearance normal, both eyes and all related structures Neck: Normal visual inspection and Yes full ROM Respiratory: Normal respiratory effort and able to speak in complete sentences. Clear to auscultation bilaterally Cardiovascular: Regular rate and rhythm. Normal S1 and S2 GI: Normal to inspection. Soft to palpation and nontender : Declined any exam of his genitals Skin: No rashes or lesions noted Neuro: Patient oriented x3, positive sensation use of monofilament Extremities: Normal to inspection Results - Labs: A1c is 4.7. - Labs: Bilirubin was noted to be elevat ed and fluctuates. - Labs: Ongoing leukocytosis and thrombo cytopenia are noted. - Imaging: Past imaging showed some hepa tic steatosis. - Imaging: Past imaging showed splenomeg lora. Plan Patient was informed and verbally consented to the use of an ambient scribe for clinic note documentation during this visit. 1. Diabetes Mellitus The patient's A1c is well-controlled at 4.7. The long-acting insulin will be decreased from 32 units down to 26 units. 2. Hyperbilirubinemia The patient has a history of fluctuating elevated bilirubin. The most likely diagnosis is Gilbert's syndrome. Additional labs will be ordered to further evaluate the elevated bilirubin. 3. Leukocytosis And Thrombocytopenia For the ongoing leukocytosis and thrombocytopenia, the patient will be referred for a follow-up with oncology. Discussion Notes I discussed with the patient that his diabetes is well-controlled, with an A1c of 4.7, and recommended decreasing his long-acting insulin from 32 units to 26 units. We reviewed his fluctuating elevated bilirubin, and I informed him that I suspect Gilbert's syndrome but will order additional labs for confirmation. I also recommended he follow up with oncology for his ongoing leukocytosis and thrombocytopenia. The patient declined a genital exam. Overall, he reports doing quite well. Patient Instructions - Decrease your long-acting insulin dose from 32 units down to 26 units daily. - We will be ordering more lab tests to investigate your elevated bilirubin levels. - Please schedule a follow-up appointmen t with an recycling specialist for your ongoing blood count abnormalities. - Continue to see your twisting frame changer once a year. [facility] Medical History BPH (benign prostatic hyperplasia) Seborrheic dermatitis Hypertensive retinopathy of both eyes Bilateral cold feet Locking finger joint History of blood clots Rash and nonspecific skin eruption Uncontrolled diabetes mellitus with hyperglycemia Myocardial infarction On beta clifford at home Supplemental oxygen dependent Right hip pain Mastoiditis Neuropathy Skin cancer Arthralgia Subdural hematoma Depression Hearing loss Anxiety Crohn's disease Diabetes Surgical History History of surgery History of surgery Hx of heart artery stent History of colonoscopy Family History Father Mental illness in member of household Cancer Mother Cancer H/O bilateral mastectomy Arthritis Sister No problems noted. 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 1. Little interest or pleasure in doing things: not at all 2. Feeling down, depressed, or hopeless: not at all 3. Trouble falling or staying asleep, or sleeping too much: not at all 4. Feeling tired or having little energy: not at all 5. Poor appetite or overeating: not at all 6. Feeling bad about yourself - or that you are a failure or have let yourself or your family down: not at all 7. Trouble concentrating on things, such as reading the newspaper or watching television: not at all 8. Moving or speaking so slowly that other people could have noticed. Or the opposite - being so fidgety or restless that you have been moving around a lot more than usual: not at all Depression Screening Interpretation: Negative Depression Screening Done: Yes 70312 - PHQ-9 Billing: Yes Source: Developed by Drs. Damion Mancilla, Jesica Gomes, Jaylen Pack and colleagues, with an educational rajan from [employer]. Thrive Questionnaire Date Thrive assessed: 07/02/24 I am a: Patient What is your living situation today?: I have a steady place to live Within the past 12 months, did the food you bought not last and you didn't have the money to get more?: Never true Within the past 12 months, did you worry whether your food would run out before you got money to buy more?: Never true Do you have trouble paying for medicines?: Yes Do you have trouble getting transportation to medical appointments?: No Do you have trouble paying your heating and electricity bill?: No Do you have trouble taking care of your child, family member or friend?: No Do you have trouble with day-to-day activities such as bathing, preparing meals, shopping, managing finances, etc.?: No Are you currently unemployed and looking for a job?: No Are you interested in more education?: No Please select the resources that you would like help with: None Currently or been in a relationship where the following occur: No concerns reported THRIVE Score: 0 AUDIT C Alcohol Use Questionnaire (AUDIT-C) 2. How many drinks containing alcohol do you have on a typical day when you are drinking?: 1 or 2 Total Score: 0 Score Reviewed/Action Taken: No GRETTA-7 AMB Questionnaire GRETTA-7 Date GRETTA - 7 assessed: 02/09/25 Feeling nervous, anxious, or on edge: 0 = Not at all Not being able to stop or control worryin = Not at all Worrying too much about different things: 0 = Not at all Trouble relaxin = Not at all Being so restless that it is hard to sit still: 0 = Not at all Becoming easily annoyed or irritable: 0 = Not at all Feeling afraid as if something awful might happen: 0 = Not at all Total GRETTA-7 score (0-4 normal; 5-9 mild; 10-14 moderate; 15-21 severe): 0 Source: Developed by Drs. Damion Mancilla, Jesica Gomes, Jaylen Pack and colleagues, with an educational rajan from [employer]. GRETTA-7 Assessment Billing GRETTA-7 Assessment Tool: GRETTA-7 Assessment 82042 Physical exam (Primary Care) Vital Signs: Last Vital Signs Pulse 86 02/09/25 09:14 BP 120/82 02/09/25 09:14 BMI result Body Mass Index 25.9 Tobacco/Smoking Status: Tobacco use Status Tobacco use date assessed 02/09/25 02/09/25 09:18 Patient Tobacco Use Status Never used Tobacco 02/09/25 09:18 e-Cigarette/Vaping Use Never Used 02/09/25 09:18 Depression Screening Interpretation: Negative Thrive Assessment: Date of Thrive Assessment Date Thrive assessed 07/02/24 02/09/25 09:18 Currently or been in a relationship where the following occur: No concerns reported Coding Level of Care Code Est Pt Level 3 (70945) Est Pt Prev Care 40-64y(61704) Diagnoses Elevated bilirubin R17 Diabetes E11.9 Encounter for routine adult physical exam with abnormal findings Z00. Additional Codes GRETTA-7 Assessment Billing - GRETTA-7 Assessment Tool: GRETTA-7 Assessment 37486 ([id number]) PHQ-9 - 95954 - PHQ-9 Billing: Yes ([id number]) Assessment & Plan Assessment & Plan (1) Elevated bilirubin: Code(s): R17 - Unspecified jaundice Category: Medical (2) Diabetes: Code(s): E11.9 - Type 2 diabetes mellitus without complications Category: Medical (3) Encounter for routine adult physical exam with abnormal findings: Code(s): Z00.01 - Encounter for general adult medical examination with abnormal findings Category: Medical Plan . Orders: Orders Haptoglobin Today R17 - Unspecified jaundice Bilirubin Total Today R17 - Unspecified jaundice Bilirubin Direct Today R17 - Unspecified jaundice Medications: Changed From insulin glargine-yfgn 32 units (0.32 mL) subcut DAILY 30 mL 1RF To insulin glargine-yfgn 26 units (0.26 mL) subcut DAILY 30 mL 1RF
[2025-02-09 09:14] VITALS: BP 120/82; PULSE 86; BMI 25.9
--- OUTSIDE RECORDS SUMMARY | 2025-02-09 09:38 | XMS_ITS | Clinical Summary ---
Author Organization Patient Business Ser [facility] [place] Address [address] [place] [address] Care Team Providers Care Sliver Machine Operator Name Role Phone Abimael Gold NP Primary [...] Depression Screening 04/01/2024 COVID-19 Vaccine (1 - 2024-2 6 season) 2024 Influenza Vaccine (#1) 2024 RSV [...] age to complete this topic Care Teams Sliver Machine Operator Relationship Specialty Start Date End Date Abimael Gold NP [address] [facility] KEVEN Broussard PCP - General 07/11/21
== END 2025-02-09 10:03 | disposition home or self-care (01) ==
LOC: HO.HMCC 09:03
PROVIDERS: PCP Nurse Practitioner Family; Visit Provider Nurse Practitioner Family
DX: Z00.01 Encounter for general adult medical examination with abnormal findings (principal); R17 Unspecified jaundice; E11.9 Type 2 diabetes mellitus without complications; Z23 Encounter for immunization

== ENCOUNTER → 2025-02-09 09:02 | Outpatient (BNVA) | payer MEDICARE, MEDICAID, SELFPAY | PROVIDERS: PCP Nurse Practitioner Family; Visit Provider Nurse Practitioner Family | DX: E11.9 Type 2 diabetes mellitus without complications (principal); Z00.01 Encounter for general adult medical examination with abnormal findings; I77.1 Stricture of artery; R79.81 Abnormal blood-gas level; Z23 Encounter for immunization; R17 Unspecified jaundice; Z13.31 Encounter for screening for depression; Z13.39 Encounter for screening examination for other mental health and behavioral disorders | CPT/HCPCS: 90471; 90715; 96127; 99212; 99396 ==

== ENCOUNTER 2025-02-24 09:16 | Outpatient (REF) | payer MEDICARE, MEDICAID, SELFPAY ==
--- OUTSIDE RECORDS SUMMARY | 2025-02-24 10:16 | XMS_ITS | Clinical Summary ---
Author Organization Patient Business Ser [facility] [place] Address [address] [place] [address] Care Team Providers Care Rides Attendant Name Role Phone Abimael Gold NP Primary Care Provider [phone] Social History Tobacco Use Types Packs/Day Years [...] age to complete this topic Care Teams Rides Attendant Relationship Specialty Start Date End Date Abimael Gold NP [address] [facility] KEVEN Broussard PCP - General 07/11/21
== END 2025-02-24 09:17 | disposition home or self-care (01) ==
LOC: HO.HMGCLDS 09:16
PROVIDERS: PCP Nurse Practitioner Family; Visit Provider Nurse Practitioner Family
DX: R17 Unspecified jaundice (principal)
CPT/HCPCS: 36415; 82247; 82248; 83010